=== PATIENT | male | born 1990 | race American Indian/Alaskan Native ===

== ENCOUNTER 2017-10-29 19:39 | Emergency (ER) | payer MEDICAID ==
[2017-10-29] MEDS ORDERED: Diphtheria,Pertussis(Acell),Tetanus Vaccine 0.5 ML SDV IM ONE (19:42)
[2017-10-29] MEDS ORDERED: Lidocaine 1% 30 ML SDV INJECT ONE (19:42)
[2017-10-29] MEDS ORDERED: Bacitracin Oint 1 GM U/D Packet TOP ONE (19:42)
[2017-10-29 19:46] VITALS: BP 123/85
--- NOTE | 2017-10-29 19:53 | EDM.PDOC ---
ED HPI GENERAL MEDICAL PROBLEM - General Chief Complaint: Laceration Stated Complaint: LACERATION ON KNEE [id number] Time Seen by Provider: 10/29/17 19:43 Source of Information: Reports: Patient, RN History Limitations: Reports: No Limitations - History of Present Illness INITIAL COMMENTS - FREE TEXT/NARRATIVE: cut left lower knee on something, maybe nail on porch. Didn't fee cut only blood trickling down leg. - Related Data Allergies Allergy/AdvReac Type Severity Reaction Status Date / Time No Known Allergies Allergy Verified 10/29/17 19:43 Home Meds: Home Meds Buprenorphine HCl/Naloxone HCl [Suboxone 12 mg-3 mg Sl Film] 8.4 mg PO BID 10/29 [History] Past Medical History - Past Health History Medical/Surgical History: Denies Medical/Surgical History Other HEENT History: patient wears corrective lenses Psychiatric History: Reports: Addiction Social & Family History - Family History Family Medical History: Noncontributory - Caffeine Use Caffeine Use: Reports: Energy Drinks ED ROS GENERAL - Review of Systems Review Of Systems: ROS reveals no pertinent complaints other than HPI. ED EXAM, SKIN/RASH Exam: See Below Exam Limited By: No Limitations General Appearance: Alert, No Apparent Distress Eye Exam: Bilateral Eye: EOMI Ears: Normal External Exam Throat/Mouth: Normal Voice Cardiovascular: No Edema GI/Abdominal: Normal Bowel Sounds Extremities: Normal Inspection Neurological: Alert, Oriented Psychiatric: Normal Affect Location, Skin: Lower Extremity, Left (3.5cm laceration below left knee medial edge.) Associated features: Tenderness. No: Swelling ED SKIN PROCEDURES - Laceration/Wound Repair Left Lower Medial Knee Lac/Wound length In cm: 3.5 Appearance: Superficial Distal NVT: Neuro & Vascular Intact, No Tendon Injury Anesthetic Type: Local Local Anesthesia - Lidocaine (Xylocaine): 1% Plain Skin Prep: Chlorhexidine (Hibiciens), Saline Exploration/Debridement/Repair: Wound Explored, No Foreign Material Found Closed with: Sutures Suture Size: 3-0 # of Sutures: 5 Sterile Dressing Applied: Nurse Tetanus Status Addressed: Yes Complications: No Course - Orders/Labs/Meds Orders: Active Orders 24 hr Category Date Time Status Vaccines to be Administered [RC] PER UNIT ROUTINE Care 10/29/17 19:42 Ordered Bacitracin [Bacitracin Oint 1 GM] Med 10/29/17 19:42 Once 1 dose TOP ONETIME ONE Diphth,Pertuss(Acell),Tet Vac [Adacel] Med 10/29/17 19:42 Once 0.5 ml IM .ONCE ONE Lidocaine 1% [Xylocaine-MPF 1%] Med 10/29/17 19:42 Once 30 ml INJECT ONETIME ONE Medication Orders Bacitracin (Bacitracin Oint 1 Gm) 1 dose TOP ONETIME ONE Stop: 10/29/17 19:43 Meds: Medications Generic Name Dose Route Start Last Admin Trade Name Vic PRN Reason Stop Dose Admin Bacitracin 1 dose 10/29/17 19:42 Bacitracin Oint 1 Gm TOP 10/29/17 19:43 ONETIME ONE Departure - Departure Time of Disposition: 20:01 Disposition: Home, Self-Care 01 Condition: Good Clinical Impression: Laceration - Discharge Information *PRESCRIPTION DRUG MONITORING PROGRAM REVIEWED*: Not Applicable Instructions: Stitches, [place], or Adhesive Wound Closure, [id number] Additional Instructions: keep clean and dry wash with soap and water sutures out 10-14 days in clinic follow up if redness drainage or swelling Tylenol or ibuprofen for discomfort - My Orders Last 24 Hours: My Active Orders 10/29/17 19:42 Vaccines to be Administered [RC] PER UNIT ROUTINE Bacitracin [Bacitracin Oint 1 GM] 1 dose TOP ONETIME ONE Diphth,Pertuss(Acell),Tet Vac [Adacel] 0.5 ml IM .ONCE ONE Lidocaine 1% [Xylocaine-MPF 1%] 30 ml INJECT ONETIME ONE - Assessment/Plan Last 24 Hours: My Active Orders 10/29/17 19:42 Vaccines to be Administered [RC] PER UNIT ROUTINE Bacitracin [Bacitracin Oint 1 GM] 1 dose TOP ONETIME ONE Diphth,Pertuss(Acell),Tet Vac [Adacel] 0.5 ml IM .ONCE ONE Lidocaine 1% [Xylocaine-MPF 1%] 30 ml INJECT ONETIME ONE
== END 2017-10-29 20:07 | disposition home or self-care (01) ==
LOC: DL.ED 19:39
DX: S81.012A Laceration without foreign body, left knee, initial encounter (principal); Z23 Encounter for immunization; X58.XXXA Exposure to other specified factors, initial encounter
CPT/HCPCS: 12002; 12013; 90471; 90715; 99282

== ENCOUNTER 2017-11-05 19:34 | Emergency (ER) | payer MEDICAID ==
[2017-11-05 20:45] VITALS: BP 131/76
[2017-11-05] MEDS ORDERED: Ondansetron 4 MG Tab.DIS PO ONE (23:56)
[2017-11-05] MEDS ORDERED: Azithromycin 250 MG Tab PO ONE (23:56)
[2017-11-05] MEDS ORDERED: cefTRIAXone 250 MG Vial IM ONE (23:56)
[2017-11-06] MEDS ORDERED: cefTRIAXone 250 MG, Lidocaine 1% 0.9 ML IM ONE ×2 (00:05)
--- NOTE | 2017-11-06 00:19 | EDM.PDOC ---
ED HPI GENERAL MEDICAL PROBLEM - General Chief Complaint: Genitourinary Problem Stated Complaint: UTI [id number] Time Seen by Provider: 11/05/17 23:50 Source of Information: Reports: Patient History Limitations: Reports: No Limitations - History of Present Illness INITIAL COMMENTS - FREE TEXT/NARRATIVE: she comes emergency department today with complaints of painful urination as well as a painful penis. Over the past 3-4 days he has developed a yellowish green discharge from the end of his penis. It is quite painful for him to urinate and he has to urinate more frequently. No fever no chills. No nausea no vomiting. No flank pain. No abdominal pain.He is currently in a monogamous relationship. Reports with his girlfriend for the last 3 months and has had unprotected sex the entire time. He is unsure if she has had any STI's in the past. He has had no other partners other than her in the last 3 months.e denies any rectal pain or painful defecation. Penis Pain Score (Numeric/FACES): 9 - Related Data Allergies Allergy/AdvReac Type Severity Reaction Status Date / Time No Known Allergies Allergy Verified 11/05/17 20:45 Home Meds: Home Meds Buprenorphine HCl/Naloxone HCl [Suboxone 12 mg-3 mg Sl Film] 8.4 mg PO BID 10/29 [History] Past Medical History - Past Health History Medical/Surgical History: Denies Medical/Surgical History Other HEENT History: patient wears corrective lenses Psychiatric History: Reports: Addiction - Past Surgical History HEENT Surgical History: Reports: Oral Surgery Social & Family History - Family History Family Medical History: Noncontributory - Tobacco Use Smoking Status *Q: Current Every Day Smoker Years of Tobacco use: 3 Packs/Tins Daily: 0.2 Second Hand Smoke Exposure: Yes - Caffeine Use Caffeine Use: Reports: Energy Drinks - Recreational Drug Use Recreational Drug Use: No ED ROS GENERAL - Review of Systems Review Of Systems: ROS reveals no pertinent complaints other than HPI. ED EXAM, RENAL/ - Physical Exam Exam: See Below Text/Narrative:: appears uncomfortable and actually gets up during the middle of the exam and also the bathroom. Exam Limited By: No Limitations General Appearance: Alert, WD/WN Respiratory/Chest: No Respiratory Distress, No Accessory Muscle Use Cardiovascular: Normal Peripheral Pulses (Male) Exam: Circumcised, Urethral Discharge (there is a rather moderate amount of thick foul-smelling green discharge from the end of his penis.). No: Scrotal Swelling, Scrotum Tenderness (L), Scrotum Tenderness (R), Suprapubic Fullness, Testicular Mass, Testicular Tenderness (L), Testicular Tenderness (R) Rectal (Males) Exam: Deferred Back Exam: Normal Inspection, Full Range of Motion Extremities: Normal Inspection, Normal Range of Motion, Normal Capillary Refill Neurological: Alert, Oriented Psychiatric: Normal Affect, Normal Mood Skin Exam: Warm, Dry, Intact, Normal Color Lymphatic: No Adenopathy Course - Vital Signs Last Recorded V/S: Last Vital Signs Temp 36.3 C 11/05/17 20:41 Pulse 80 11/05/17 20:41 Resp 18 11/05/17 20:41 BP 131/76 11/05/17 20:41 Pulse Ox 100 11/05/17 20:41 - Orders/Labs/Meds Orders: Active Orders 24 hr Category Date Time Status CHLAMYDIA AND GONORRHEA BY TMA Stat Lab 11/05/17 21:00 Received Labs: Laboratory Tests 11/05/17 Range/Units 21:00 Urine Color Yellow (YELLOW) Urine Appearance Cloudy (CLEAR) Urine pH 8.5 (5.0-9.0) Ur Specific [place] 1.020 (1.005-1.030) Urine Protein 30 H (NEGATIVE) Urine Glucose (UA) Negative (NEGATIVE) Urine Ketones Trace H (NEGATIVE) Urine Occult Blood Trace-intact H (NEGATIVE) Urine Nitrite Negative (NEGATIVE) Urine Bilirubin Negative (NEGATIVE) Urine Urobilinogen 0.2 (0.2-1.0) mg/dL Ur Leukocyte Esterase Moderate H (NEGATIVE) Urine RBC 0-5 /HPF Urine WBC >100 H (0-5/HPF) /HPF Ur Epithelial Cells Rare /HPF Urine Bacteria Rare (0-FEW/HPF) /HPF Urine Mucus Rare /LPF Meds: Medications Discontinued Medications Generic Name Dose Route Start Last Admin Trade Name Freq PRN Reason Stop Dose Admin Azithromycin 1,000 mg 11/05/17 23:56 Zithromax PO 11/05/17 23:57 ONETIME ONE Ceftriaxone Sodium 250 mg 11/05/17 23:56 Rocephin IM 11/05/17 23:57 ONETIME ONE Ceftriaxone Sodium 250 mg/ 0 mg 11/06/17 00:05 Lidocaine HCl 0.9 ml IM 11/06/17 00:06 ONETIME ONE Ondansetron HCl 4 mg 11/05/17 23:56 Zofran Odt PO 11/05/17 23:57 ONETIME ONE - Re-Assessments/Exams Free Text/Narrative Re-Assessment/Exam: 11/06/17 00:19 the patient's urine is clearly infectious. Cultures for GC chlamydia are pending. Although this is clearly a gonorrhea or chlamydia infection. I will treat him tonight as well as prescription for his girlfriend. Is important that he has girlfriend notify any other partners that they currently have an STI. They should insure eradication as well to prevent infertility. Departure - Departure Time of Disposition: 00:11 Disposition: Home, Self-Care 01 Clinical Impression: UTI, Urinary tract infectious disease, Sexually transmitted infection - Discharge Information Instructions: Urinary Tract Infection, Adult, [id number], Sexually Transmitted Disease, [id number] Additional Instructions: Tylenol and or Ibuprofen as needed for pain. Rx for partner supplied tonight as well. Notify all partners of infection and they must be treated as well. No sexual intercourse until resolution of symptoms. Return to the ED if new or worsening symptoms. Recheck with primary care provider in the next 4-6 days if not improving sooner if worse. - My Orders Last 24 Hours: My Active Orders 11/05/17 21:00 CHLAMYDIA AND GONORRHEA BY TMA Stat - Assessment/Plan Last 24 Hours: My Active Orders 11/05/17 21:00 CHLAMYDIA AND GONORRHEA BY TMA Stat Assessment:: UTI Treatment for STI Cultures pending. Partner prescription as well. Plan: Tylenol and or Ibuprofen as needed for pain. Rx for partner supplied tonight as well. Notify all partners of infection and they must be treated as well. No sexual intercourse until resolution of symptoms. Return to the ED if new or worsening symptoms. Recheck with primary care provider in the next 4-6 days if not improving sooner if worse.
== END 2017-11-06 01:01 | disposition home or self-care (01) ==
LOC: DL.ED 19:34
DX: N39.0 Urinary tract infection, site not specified (principal); A64 Unspecified sexually transmitted disease; F17.210 Nicotine dependence, cigarettes, uncomplicated
CPT/HCPCS: 36415; 81001; 86803; 87340; 87389; 87491; 87591; 96372; 99283; A9270; J0696

== ENCOUNTER 2018-03-27 01:23 | Observation (INO) | payer MEDICAID ==
[2018-03-27] MEDS ORDERED: MVI, Adult with Vitamin K 10 ML, Folic Acid 1 MG, Thiamine 100 MG in Lactated Ringers 1... IV ONE ×8 (01:37→04:43)
[2018-03-27] MEDS ORDERED: Sodium Chloride 0.9% 10 ML Syringe FLUSH PRN ×4 (01:37→16:49)
[2018-03-27] MEDS ORDERED: Ondansetron 4 MG/2 ML SDV IV ONE (01:51)
[2018-03-27] MEDS ORDERED: LORazepam 2 MG/ML Syringe IVPUSH ONE ×2 (01:51→02:29)
[2018-03-27 02:17] LABS: ANION GAP 17.4; CHLORIDE,CL 103 mmol/L (101-111); SODIUM,NA 141 mmol/L (135-145)
[2018-03-27] MEDS ORDERED: Metoclopramide 10 MG/2 ML SDV IVPUSH ONE (02:29)
--- NOTE | 2018-03-27 02:37 | EDM.PDOCBH ---
ED HPI GENERAL MEDICAL PROBLEM - General Chief Complaint: Drug or Alcohol Abuse Stated Complaint: ALCOHOL POISONING [id number] Time Seen by Provider: 03/27/18 01:45 Source of Information: Reports: Patient, RN, RN Notes Reviewed History Limitations: Reports: Intoxication - History of Present Illness INITIAL COMMENTS - FREE TEXT/NARRATIVE: Pt to ER with c/o alcohol abuse. Patient states he is concerned that he could have alcohol poisoning. He states he has been drinking since , everyday, all day. He states he drinks hard liquor. Last drink was about 0120 this morning. Patient states he tries to stop drinking, then gets nauseated. He then drinks again to make the nausea go away. He states he has seen "shadow people" at night. He denies any auditory hallucinations. Patient states he has nausea, vomiting, and feels very jittery and anxious. Denies any further health problems. Onset: Gradual - Related Data Allergies Allergy/AdvReac Type Severity Reaction Status Date / Time No Known Allergies Allergy Verified 03/27/18 01:27 Home Meds: Home Meds Buprenorphine HCl/Naloxone HCl [Suboxone 12 mg-3 mg Sl Film] 8.4 mg PO BID 10/29 [History] Past Medical History - Past Health History Medical/Surgical History: Denies Medical/Surgical History Other HEENT History: patient wears corrective lenses Cardiovascular History: Reports: None Respiratory History: Reports: None Gastrointestinal History: Reports: None Genitourinary History: Reports: None Musculoskeletal History: Reports: None Neurological History: Reports: None Psychiatric History: Reports: Addiction Endocrine/Metabolic History: Reports: None Hematologic History: Reports: None Immunologic History: Reports: None Oncologic (Cancer) History: Reports: None Dermatologic History: Reports: None - Past Surgical History HEENT Surgical History: Reports: Oral Surgery Social & Family History - Family History Family Medical History: Noncontributory - Tobacco Use Smoking Status *Q: Never Smoker - Caffeine Use Caffeine Use: Reports: Energy Drinks - Recreational Drug Use Recreational Drug Use: No ED ROS GENERAL - Review of Systems Review Of Systems: ROS reveals no pertinent complaints other than HPI. ED EXAM, BEHAVIORAL HEALTH - Physical Exam Exam: See Below Exam Limited By: Intoxication General Appearance: Alert, WD/WN, Moderate Distress Eye Exam: Bilateral Eye: EOMI, Normal Inspection Ears: Normal External Exam, Hearing Grossly Normal Nose: Normal Inspection Throat/Mouth: Normal Inspection, Normal Voice, No Airway Compromise Head: Atraumatic, Normocephalic Neck: Normal Inspection, Supple, Non-Tender, Full Range of Motion Respiratory/Chest: No Respiratory Distress, Lungs Clear, Normal Breath Sounds, No Accessory Muscle Use, Chest Non-Tender Cardiovascular: Normal Peripheral Pulses, Regular Rate, Rhythm, No Edema, No Gallop, No JVD, No Murmur, No Rub GI/Abdominal: Normal Bowel Sounds, Soft, No Organomegaly, No Distention, No Abnormal Bruit, No Mass, Tender (Male) Exam: Deferred Rectal (Males) Exam: Deferred Back Exam: Normal Inspection, Full Range of Motion, NT Extremities: Normal Inspection, Normal Range of Motion, Non-Tender, Normal Capillary Refill, No Pedal Edema Neurological: Alert, Normal Mood/Affect, CN II-XII Intact, Normal Cognition, Normal Gait, Normal Reflexes, No Motor/Sensory Deficits, Oriented x 3 Psychiatric: Normal Cognition, Oriented, Restless, Agitated Skin Exam: Warm, Dry, Intact, Normal color, No rash COURSE, BEHAVIORAL HEALTH COMP - Course Vital Signs: Last Vital Signs Temp 99.2 F 03/27/18 01:28 Pulse 84 03/27/18 01:28 Resp 18 03/27/18 01:28 BP 142/93 H 03/27/18 01:28 Pulse Ox 97 03/27/18 01:28 Orders, Labs, Meds: Active Orders 24 hr Category Date Time Status Peripheral IV Care [RC] . DIRECTED Care 03/27/18 01:37 Active Sodium Chloride 0.9% [Saline Flush] Med 03/27/18 01:37 Active 10 ml FLUSH ASDIRECTED PRN Peripheral IV Insertion Adult [OM.PC] Stat Oth 03/27/18 01:36 Ordered Medication Orders Sodium Chloride (Saline Flush) 10 ml FLUSH ASDIRECTED PRN PRN Reason: Keep Vein Open Last Admin: 03/27/18 01:51 Dose: 10 ml Laboratory Tests 03/27/18 03/27/18 03/27/18 Range/Units 01:45 01:45 02:00 WBC 7.3 (5.0-10.0) 10^3/uL RBC 4.74 (4.6-6.2) 10^6/uL Hgb 15.0 (14.0-18.0) g/dL Hct 43.7 (40.0-54.0) % MCV 92.2 (80-100) fL MCH 31.6 (27.0-34.0) pg MCHC 34.3 (33.0-35.0) g/dL Plt Count 201 D (150-450) 10^3/uL Neut % (Auto) 68.9 (42.2-75.2) % Lymph % (Auto) 19.9 L (20.5-50.1) % [place] % (Auto) 9.5 H (2-8) % Eos % (Auto) 0.6 L (1.0-3.0) % Baso % (Auto) 1.1 H (0.0-1.0) % Sodium 141 (135-145) mmol/L Potassium 3.4 L (3.6-5.0) mmol/L Chloride 103 (101-111) mmol/L Carbon Dioxide 24.0 (21.0-31.0) mmol/L Anion Gap 17.4 BUN 11 (7-18) mg/dL Creatinine 0.7 (0.6-1.3) mg/dL Est Cr Clr Drug Dosing 147.46 mL/min Estimated GFR (MDRD) > 60 BUN/Creatinine Ratio 15.71 Glucose 120 H (74-105) mg/dL Calcium 8.8 (8.4-10.2) mg/dl Total Bilirubin 0.6 (0.2-1.0) mg/dL AST 65 H (10-42) IU/L ALT 63 H (10-60) IU/L Alkaline Phosphatase 100 (42-121) IU/L Total Protein 8.0 (6.7-8.2) g/dl Albumin 4.4 (3.2-5.5) g/dl Globulin 3.6 Albumin/Globulin Ratio 1.22 Urine Color Yellow (YELLOW) Urine Appearance Clear (CLEAR) Urine pH 7.5 (5.0-9.0) Ur Specific [place] 1.020 (1.005-1.030) Urine Protein 100 H (NEGATIVE) Urine Glucose (UA) Negative (NEGATIVE) Urine Ketones Trace H (NEGATIVE) Urine Occult Blood Negative (NEGATIVE) Urine Nitrite Negative (NEGATIVE) Urine Bilirubin Negative (NEGATIVE) Urine Urobilinogen 1.0 (0.2-1.0) mg/dL Ur Leukocyte Esterase Negative (NEGATIVE) Urine RBC 0-5 /HPF Urine WBC 0-5 (0-5/HPF) /HPF Ur Epithelial Cells Few /HPF Amorphous Sediment Few (0/HPF) /HPF Urine Bacteria Moderate H (0-FEW/HPF) /HPF Urine Mucus Moderate H /LPF Urine Opiates Screen (NEGATIVE) Ur Oxycodone Screen (NEGATIVE) Urine Methadone Screen (NEGATIVE) Ur Barbiturates Screen (NEGATIVE) U Tricyclic Antidepress (NEGATIVE) Ur Phencyclidine Scrn (NEGATIVE) Ur Amphetamine Screen (NEGATIVE) U Methamphetamines Scrn (NEGATIVE) Urine MDMA Screen (NEGATIVE) U Benzodiazepines Scrn (NEGATIVE) Urine Cocaine Screen (NEGATIVE) U Marijuana (THC) Screen (NEGATIVE) Ethyl Alcohol 140 mg/dL 03/27/18 Range/Units 02:00 WBC (5.0-10.0) 10^3/uL RBC (4.6-6.2) 10^6/uL Hgb (14.0-18.0) g/dL Hct (40.0-54.0) % MCV (80-100) fL MCH (27.0-34.0) pg MCHC (33.0-35.0) g/dL Plt Count (150-450) 10^3/uL Neut % (Auto) (42.2-75.2) % Lymph % (Auto) (20.5-50.1) % [place] % (Auto) (2-8) % Eos % (Auto) (1.0-3.0) % Baso % (Auto) (0.0-1.0) % Sodium (135-145) mmol/L Potassium (3.6-5.0) mmol/L Chloride (101-111) mmol/L Carbon Dioxide (21.0-31.0) mmol/L Anion Gap BUN (7-18) mg/dL Creatinine (0.6-1.3) mg/dL Est Cr Clr Drug Dosing mL/min Estimated GFR (MDRD) BUN/Creatinine Ratio Glucose (74-105) mg/dL Calcium (8.4-10.2) mg/dl Total Bilirubin (0.2-1.0) mg/dL AST (10-42) IU/L ALT (10-60) IU/L Alkaline Phosphatase (42-121) IU/L Total Protein (6.7-8.2) g/dl Albumin (3.2-5.5) g/dl Globulin Albumin/Globulin Ratio Urine Color (YELLOW) Urine Appearance (CLEAR) Urine pH (5.0-9.0) Ur Specific [place] (1.005-1.030) Urine Protein (NEGATIVE) Urine Glucose (UA) (NEGATIVE) Urine Ketones (NEGATIVE) Urine Occult Blood (NEGATIVE) Urine Nitrite (NEGATIVE) Urine Bilirubin (NEGATIVE) Urine Urobilinogen (0.2-1.0) mg/dL Ur Leukocyte Esterase (NEGATIVE) Urine RBC /HPF Urine WBC (0-5/HPF) /HPF Ur Epithelial Cells /HPF Amorphous Sediment (0/HPF) /HPF Urine Bacteria (0-FEW/HPF) /HPF Urine Mucus /LPF Urine Opiates Screen Negative (NEGATIVE) Ur Oxycodone Screen Negative (NEGATIVE) Urine Methadone Screen Negative (NEGATIVE) Ur Barbiturates Screen Negative (NEGATIVE) U Tricyclic Antidepress Negative (NEGATIVE) Ur Phencyclidine Scrn Negative (NEGATIVE) Ur Amphetamine Screen Negative (NEGATIVE) U Methamphetamines Scrn Negative (NEGATIVE) Urine MDMA Screen Negative (NEGATIVE) U Benzodiazepines Scrn Negative (NEGATIVE) Urine Cocaine Screen Negative (NEGATIVE) U Marijuana (THC) Screen Negative (NEGATIVE) Ethyl Alcohol mg/dL Medications Generic Name Dose Route Start Last Admin Trade Name Freq PRN Reason Stop Dose Admin Sodium Chloride 10 ml 03/27/18 01:37 03/27/18 01:51 Saline Flush FLUSH 10 ml ASDIRECTED PRN Administration Keep Vein Open Discontinued Medications Generic Name Dose Route Start Last Admin Trade Name Freq PRN Reason Stop Dose Admin Multivitamins/Minerals 10 ml/ 1,011.2 mls @ 999 mls/hr 03/27/18 01:37 01:52 Folic Acid 1 mg/ Thiamine HCl IV 03/27/18 02:37 999 mls/hr 100 mg/ Lactated Ringer's ONETIME ONE Administration Lorazepam 1 mg 03/27/18 01:51 03/27/18 01:56 Ativan IVPUSH 03/27/18 01:52 1 mg ONETIME ONE Administration Lorazepam 1 mg 03/27/18 02:29 03/27/18 02:36 Ativan IVPUSH 03/27/18 02:30 1 mg ONETIME ONE Administration Metoclopramide HCl 10 mg 03/27/18 02:29 03/27/18 02:36 Reglan IVPUSH 03/27/18 02:30 10 mg ONETIME ONE Administration Ondansetron HCl 4 mg 03/27/18 01:51 03/27/18 01:56 Zofran IV 03/27/18 01:52 4 mg ONETIME ONE Administration Departure - Departure Time of Disposition: 02:36 Disposition: Refer to Observation Condition: Fair Clinical Impression: Alcohol abuse Alcohol withdrawal syndrome Qualifiers: Complication of substance-induced condition: with unspecified complication Qualified Code(s): F10.239 - Alcohol dependence with withdrawal, unspecified - Discharge Information *PRESCRIPTION DRUG MONITORING PROGRAM REVIEWED*: No *COPY OF PRESCRIPTION DRUG MONITORING REPORT IN PATIENT NIKITA: No - My Orders Last 24 Hours: My Active Orders 03/27/18 01:36 Peripheral IV Insertion Adult [OM.PC] Stat 03/27/18 01:37 Peripheral IV Care [RC] . DIRECTED Sodium Chloride 0.9% [Saline Flush] 10 ml FLUSH ASDIRECTED PRN - Assessment/Plan Last 24 Hours: My Active Orders 03/27/18 01:36 Peripheral IV Insertion Adult [OM.PC] Stat 03/27/18 01:37 Peripheral IV Care [RC] . DIRECTED Sodium Chloride 0.9% [Saline Flush] 10 ml FLUSH ASDIRECTED PRN
[2018-03-27] MEDS ORDERED: LORazepam 1 MG Tab PO PRN (04:41)
[2018-03-27] MEDS ORDERED: LORazepam 2 MG/ML Syringe IVPUSH PRN (04:42)
[2018-03-27] MEDS ORDERED: Potassium Chloride 10 MEQ Tab.ER PO ONE (04:44)
--- NOTE | 2018-03-27 04:54 | PCM.HP ---
H&P History of Present Illness - General Date of Service: 03/27/18 Admit Problem/Dx: Admission Diagnosis/Problem Admission Diagnosis/Problem Alcohol abuse Source of Information: Patient History Limitations: Reports: No Limitations - History of Present Illness Initial Comments - Free Text/Narative: 28 yo M with PMH of alcohol and opioid abuse (prev on suboxone) who p/w nausea and vomiting. Patient reports that he had a relapse and has been drinking alcohol continuously for two weeks. He admits to drinking more than a liter or vodka daily and multiple cans of beer. He knows that such alcohol intake is harmful and deleterious to his health and he is willing to quit. He was in an alcohol rehab program last year. He comes to the ED today after developing severe nausea and vomiting. Vomitus is fluid, non-bloody, non-bilious. He has no abdominal pain, no fever, no chest pain, no SOB, no seizures. Last drink was at 6 pm last night. SH: Non-smoker. In the ED, alcohol level was 140, UDS was negative - Related Data Allergies/Adverse Reactions: Allergies Allergy/AdvReac Type Severity Reaction Status Date / Time No Known Allergies Allergy Verified 03/27/18 03:01 Home Medications: Home Meds Buprenorphine HCl/Naloxone HCl [Suboxone 12 mg-3 mg Sl Film] 8.4 mg PO BID 10/29 [History] Past Medical History - Past Health History Medical/Surgical History: Denies Medical/Surgical History Other HEENT History: patient wears corrective lenses Cardiovascular History: Reports: None Respiratory History: Reports: None Gastrointestinal History: Reports: None Genitourinary History: Reports: None Musculoskeletal History: Reports: None Neurological History: Reports: None Psychiatric History: Reports: Addiction Endocrine/Metabolic History: Reports: None Hematologic History: Reports: None Immunologic History: Reports: None Oncologic (Cancer) History: Reports: None Dermatologic History: Reports: None - Past Surgical History HEENT Surgical History: Reports: Oral Surgery Cardiovascular Surgical History: Reports: None Respiratory Surgical History: Reports: None GI Surgical History: Reports: None Musculoskeletal Surgical History: Reports: None Social & Family History - Family History Family Medical History: Noncontributory - Tobacco Use Smoking Status *Q: Never Smoker Second Hand Smoke Exposure: No - Caffeine Use Caffeine Use: Reports: Energy Drinks - Alcohol Use Days Per Week of Alcohol Use: 7 Number of Drinks Per Day: 20 Total Drinks Per Week: 140 Date of Last Drink: 03/27/18 Time of Last Drink: 01:00 - Recreational Drug Use Recreational Drug Use: No H&P Review of Systems - Review of Systems: Review Of Systems: See Below General: Reports: No Symptoms HEENT: Reports: No Symptoms Pulmonary: Reports: No Symptoms Cardiovascular: Reports: No Symptoms Gastrointestinal: Reports: Nausea, Vomiting Genitourinary: Reports: No Symptoms Musculoskeletal: Reports: No Symptoms Exam - Exam Exam: See Below - Vital Signs Vital Signs: Last Vital Signs Temp 37.4 C 03/27/18 03:43 Pulse 65 03/27/18 03:43 Resp 16 03/27/18 03:43 BP 131/59 L 03/27/18 03:43 Pulse Ox 97 03/27/18 03:43 Weight: 62.823 kg - Exam General: Alert, Oriented HEENT: Conjunctiva Clear Neck: Supple Lungs: Clear to Auscultation, Normal Respiratory Effort Cardiovascular: Regular Rate, Regular Rhythm GI/Abdominal Exam: Normal Bowel Sounds - Patient Data Lab Results Last 24 hrs: Laboratory Results - last 24 hr 03/27/18 03/27/18 03/27/18 Range/Units 01:45 01:45 02:00 WBC 7.3 (5.0-10.0) 10^3/uL RBC 4.74 (4.6-6.2) 10^6/uL Hgb 15.0 (14.0-18.0) g/dL Hct 43.7 (40.0-54.0) % MCV 92.2 (80-100) fL MCH 31.6 (27.0-34.0) pg MCHC 34.3 (33.0-35.0) g/dL Plt Count 201 D (150-450) 10^3/uL Neut % (Auto) 68.9 (42.2-75.2) % Lymph % (Auto) 19.9 L (20.5-50.1) % [place] % (Auto) 9.5 H (2-8) % Eos % (Auto) 0.6 L (1.0-3.0) % Baso % (Auto) 1.1 H (0.0-1.0) % Sodium 141 (135-145) mmol/L Potassium 3.4 L (3.6-5.0) mmol/L Chloride 103 (101-111) mmol/L Carbon Dioxide 24.0 (21.0-31.0) mmol/L Anion Gap 17.4 BUN 11 (7-18) mg/dL Creatinine 0.7 (0.6-1.3) mg/dL Est Cr Clr Drug Dosing 147.46 mL/min Estimated GFR (MDRD) > 60 BUN/Creatinine Ratio 15.71 Glucose 120 H (74-105) mg/dL Calcium 8.8 (8.4-10.2) mg/dl Total Bilirubin 0.6 (0.2-1.0) mg/dL AST 65 H (10-42) IU/L ALT 63 H (10-60) IU/L Alkaline Phosphatase 100 (42-121) IU/L Total Protein 8.0 (6.7-8.2) g/dl Albumin 4.4 (3.2-5.5) g/dl Globulin 3.6 Albumin/Globulin Ratio 1.22 Urine Color Yellow (YELLOW) Urine Appearance Clear (CLEAR) Urine pH 7.5 (5.0-9.0) Ur Specific [place] 1.020 (1.005-1.030) Urine Protein 100 H (NEGATIVE) Urine Glucose (UA) Negative (NEGATIVE) Urine Ketones Trace H (NEGATIVE) Urine Occult Blood Negative (NEGATIVE) Urine Nitrite Negative (NEGATIVE) Urine Bilirubin Negative (NEGATIVE) Urine Urobilinogen 1.0 (0.2-1.0) mg/dL Ur Leukocyte Esterase Negative (NEGATIVE) Urine RBC 0-5 /HPF Urine WBC 0-5 (0-5/HPF) /HPF Ur Epithelial Cells Few /HPF Amorphous Sediment Few (0/HPF) /HPF Urine Bacteria Moderate H (0-FEW/HPF) /HPF Urine Mucus Moderate H /LPF Urine Opiates Screen (NEGATIVE) Ur Oxycodone Screen (NEGATIVE) Urine Methadone Screen (NEGATIVE) Ur Barbiturates Screen (NEGATIVE) U Tricyclic Antidepress (NEGATIVE) Ur Phencyclidine Scrn (NEGATIVE) Ur Amphetamine Screen (NEGATIVE) U Methamphetamines Scrn (NEGATIVE) Urine MDMA Screen (NEGATIVE) U Benzodiazepines Scrn (NEGATIVE) Urine Cocaine Screen (NEGATIVE) U Marijuana (THC) Screen (NEGATIVE) Ethyl Alcohol 140 mg/dL 03/27/18 Range/Units 02:00 WBC (5.0-10.0) 10^3/uL RBC (4.6-6.2) 10^6/uL Hgb (14.0-18.0) g/dL Hct (40.0-54.0) % MCV (80-100) fL MCH (27.0-34.0) pg MCHC (33.0-35.0) g/dL Plt Count (150-450) 10^3/uL Neut % (Auto) (42.2-75.2) % Lymph % (Auto) (20.5-50.1) % [place] % (Auto) (2-8) % Eos % (Auto) (1.0-3.0) % Baso % (Auto) (0.0-1.0) % Sodium (135-145) mmol/L Potassium (3.6-5.0) mmol/L Chloride (101-111) mmol/L Carbon Dioxide (21.0-31.0) mmol/L Anion Gap BUN (7-18) mg/dL Creatinine (0.6-1.3) mg/dL Est Cr Clr Drug Dosing mL/min Estimated GFR (MDRD) BUN/Creatinine Ratio Glucose (74-105) mg/dL Calcium (8.4-10.2) mg/dl Total Bilirubin (0.2-1.0) mg/dL AST (10-42) IU/L ALT (10-60) IU/L Alkaline Phosphatase (42-121) IU/L Total Protein (6.7-8.2) g/dl Albumin (3.2-5.5) g/dl Globulin Albumin/Globulin Ratio Urine Color (YELLOW) Urine Appearance (CLEAR) Urine pH (5.0-9.0) Ur Specific [place] (1.005-1.030) Urine Protein (NEGATIVE) Urine Glucose (UA) (NEGATIVE) Urine Ketones (NEGATIVE) Urine Occult Blood (NEGATIVE) Urine Nitrite (NEGATIVE) Urine Bilirubin (NEGATIVE) Urine Urobilinogen (0.2-1.0) mg/dL Ur Leukocyte Esterase (NEGATIVE) Urine RBC /HPF Urine WBC (0-5/HPF) /HPF Ur Epithelial Cells /HPF Amorphous Sediment (0/HPF) /HPF Urine Bacteria (0-FEW/HPF) /HPF Urine Mucus /LPF Urine Opiates Screen Negative (NEGATIVE) Ur Oxycodone Screen Negative (NEGATIVE) Urine Methadone Screen Negative (NEGATIVE) Ur Barbiturates Screen Negative (NEGATIVE) U Tricyclic Antidepress Negative (NEGATIVE) Ur Phencyclidine Scrn Negative (NEGATIVE) Ur Amphetamine Screen Negative (NEGATIVE) U Methamphetamines Scrn Negative (NEGATIVE) Urine MDMA Screen Negative (NEGATIVE) U Benzodiazepines Scrn Negative (NEGATIVE) Urine Cocaine Screen Negative (NEGATIVE) U Marijuana (THC) Screen Negative (NEGATIVE) Ethyl Alcohol mg/dL Result Diagrams: 03/27/18 01:45 03/27/18 01:45 Problem List Initiated/Reviewed/Updated: Yes Orders Last 24hrs: Active Orders 24 hr Category Date Time Status Patient Status [ADT] Routine ADT 03/27/18 04:39 Ordered Ambulate [RC] ASDIRECTED Care 03/27/18 04:39 Ordered Oxygen Therapy [RC] PRN Care 03/27/18 04:39 Ordered Peripheral IV Care [RC] . DIRECTED Care 03/27/18 04:39 Ordered Peripheral IV Care [RC] . DIRECTED Care 03/27/18 04:39 Ordered VTE/DVT Education [RC] PER UNIT ROUTINE Care 03/27/18 04:39 Ordered Vital Signs [RC] Q4H Care 03/27/18 04:39 Ordered Regular Diet [DIET] Diet 03/27/18 Breakfast Ordered BASIC METABOLIC PANEL,BMP [CHEM] Routine Lab 03/27/18 08:00 Ordered MAGNESIUM [CHEM] Routine Lab 03/27/18 08:00 Ordered Enoxaparin [Lovenox] Med 03/27/18 09:00 Ordered 40 mg SUBCUT DAILY LORazepam [Ativan] Med 03/27/18 04:42 Ordered See Protocol IVPUSH ASDIRECTED PRN LORazepam [Ativan] Med 03/27/18 04:41 Ordered See Protocol PO Q4H PRN MVI, Adult with Vitamin K [Infuvite Adult] 10 ml Med 03/27/18 04:43 Ordered Folic Acid 1 mg Thiamine [Vitamin B-1] 100 mg Lactated Ringers [Ringers, Lactated] 1,000 ml IV ONETIME Sodium Chloride 0.9% [Saline Flush] Med 03/27/18 01:37 Active 10 ml FLUSH ASDIRECTED PRN Sodium Chloride 0.9% [Saline Flush] Med 03/27/18 04:39 Ordered 10 ml FLUSH ASDIRECTED PRN Sodium Chloride 0.9% [Saline Flush] Med 03/27/18 04:39 Ordered 10 ml FLUSH ASDIRECTED PRN Peripheral IV Insertion Adult [OM.PC] Routine Oth 03/27/18 04:39 Ordered Peripheral IV Insertion Adult [OM.PC] Stat Oth 03/27/18 01:36 Ordered Saline Lock Insert [OM.PC] Routine Oth 03/27/18 04:39 Ordered Resuscitation Status Routine Resus Stat 03/27/18 04:39 Ordered Medication Orders Enoxaparin Sodium (Lovenox) 40 mg SUBCUT DAILY K[facility] Multivitamins/Minerals 10 ml/Folic Acid 1 mg/ Thiamine HCl 100 mg/ Lactated Ringer's 1,011.2 mls @ 100 mls/hr IV ONETIME ONE Stop: 03/27/18 14:49 Lorazepam (Ativan) 1 - 3 mg PO Q4H PRN; Protocol PRN Reason: Withdrawal Symptoms Lorazepam (Ativan) 0 mg IVPUSH ASDIRECTED PRN; Protocol PRN Reason: Withdrawal Symptoms Sodium Chloride (Saline Flush) 10 ml FLUSH ASDIRECTED PRN PRN Reason: Keep Vein Open Last Admin: 03/27/18 01:51 Dose: 10 ml Sodium Chloride (Saline Flush) 10 ml FLUSH ASDIRECTED PRN PRN Reason: Keep Vein Open Sodium Chloride (Saline Flush) 10 ml FLUSH ASDIRECTED PRN PRN Reason: Keep Vein Open Assessment/Plan Comment:: #Alcohol abuse #Possible Alcohol withdrawal -IVF with MVI (banana bag) -Thiamine supplementation -monitor for alcohol withdrawal on the [facility] protocol -referral to alcohol rehab and social sciences instructor #Hypokalemia -mild, K 3.4 -replenish potassium orally -recheck in the morning -check Magnesium level #Hx of opioid abuse -patient says he is off suboxone for now -UDS negative #DVT ppx SC lovenox.
[2018-03-27 06:48] LABS: ANION GAP 17.9; CHLORIDE,CL 100 mmol/L (101-111); SODIUM,NA 138 mmol/L (135-145)
[2018-03-27] MEDS: Enoxaparin 40 MG/0.4 ML Syringe SUBCUT SCH (08:58)
--- NOTE | 2018-03-27 12:39 | PCM.PN ---
- General Info Date of Service: 03/27/18 Functional Status: Reports: Pain Controlled - Review of Systems General: Reports: No Symptoms HEENT: Reports: No Symptoms Pulmonary: Reports: No Symptoms Cardiovascular: Reports: No Symptoms Gastrointestinal: Reports: Diarrhea Genitourinary: Reports: No Symptoms Musculoskeletal: Reports: No Symptoms Skin: Reports: No Symptoms Neurological: Reports: Tremors Psychiatric: Reports: No Symptoms - Patient Data Vitals - Most Recent: Last Vital Signs Temp 97.4 F 03/27/18 12:20 Pulse 84 03/27/18 12:20 Resp 20 03/27/18 12:20 BP 116/61 03/27/18 12:20 Pulse Ox 100 03/27/18 12:20 Weight - Most Recent: 138 lb 8 oz I&O - Last 24 Hours: Intake & Output 03/26/18 03/27/18 03/27/18 22:59 06:59 14:59 Intake Total 510 360 Balance 510 360 Lab Results Last 24 Hours: Laboratory Results - last 24 hr 03/27/18 03/27/18 03/27/18 Range/Units 01:45 01:45 02:00 WBC 7.3 (5.0-10.0) 10^3/uL RBC 4.74 (4.6-6.2) 10^6/uL Hgb 15.0 (14.0-18.0) g/dL Hct 43.7 (40.0-54.0) % MCV 92.2 (80-100) fL MCH 31.6 (27.0-34.0) pg MCHC 34.3 (33.0-35.0) g/dL Plt Count 201 D (150-450) 10^3/uL Neut % (Auto) 68.9 (42.2-75.2) % Lymph % (Auto) 19.9 L (20.5-50.1) % [place] % (Auto) 9.5 H (2-8) % Eos % (Auto) 0.6 L (1.0-3.0) % Baso % (Auto) 1.1 H (0.0-1.0) % Sodium 141 (135-145) mmol/L Potassium 3.4 L (3.6-5.0) mmol/L Chloride 103 (101-111) mmol/L Carbon Dioxide 24.0 (21.0-31.0) mmol/L Anion Gap 17.4 BUN 11 (7-18) mg/dL Creatinine 0.7 (0.6-1.3) mg/dL Est Cr Clr Drug Dosing 147.46 mL/min Estimated GFR (MDRD) > 60 BUN/Creatinine Ratio 15.71 Glucose 120 H (74-105) mg/dL Calcium 8.8 (8.4-10.2) mg/dl Phosphorus (2.5-4.6) mg/dL Magnesium (1.8-2.5) mg/dL Total Bilirubin 0.6 (0.2-1.0) mg/dL AST 65 H (10-42) IU/L ALT 63 H (10-60) IU/L Alkaline Phosphatase 100 (42-121) IU/L Total Protein 8.0 (6.7-8.2) g/dl Albumin 4.4 (3.2-5.5) g/dl Globulin 3.6 Albumin/Globulin Ratio 1.22 Urine Color Yellow (YELLOW) Urine Appearance Clear (CLEAR) Urine pH 7.5 (5.0-9.0) Ur Specific [place] 1.020 (1.005-1.030) Urine Protein 100 H (NEGATIVE) Urine Glucose (UA) Negative (NEGATIVE) Urine Ketones Trace H (NEGATIVE) Urine Occult Blood Negative (NEGATIVE) Urine Nitrite Negative (NEGATIVE) Urine Bilirubin Negative (NEGATIVE) Urine Urobilinogen 1.0 (0.2-1.0) mg/dL Ur Leukocyte Esterase Negative (NEGATIVE) Urine RBC 0-5 /HPF Urine WBC 0-5 (0-5/HPF) /HPF Ur Epithelial Cells Few /HPF Amorphous Sediment Few (0/HPF) /HPF Urine Bacteria Moderate H (0-FEW/HPF) /HPF Urine Mucus Moderate H /LPF Urine Opiates Screen (NEGATIVE) Ur Oxycodone Screen (NEGATIVE) Urine Methadone Screen (NEGATIVE) Ur Barbiturates Screen (NEGATIVE) U Tricyclic Antidepress (NEGATIVE) Ur Phencyclidine Scrn (NEGATIVE) Ur Amphetamine Screen (NEGATIVE) U Methamphetamines Scrn (NEGATIVE) Urine MDMA Screen (NEGATIVE) U Benzodiazepines Scrn (NEGATIVE) Urine Cocaine Screen (NEGATIVE) U Marijuana (THC) Screen (NEGATIVE) Ethyl Alcohol 140 mg/dL 03/27/18 03/27/18 03/27/18 Range/Units 02:00 06:10 06:10 WBC (5.0-10.0) 10^3/uL RBC (4.6-6.2) 10^6/uL Hgb (14.0-18.0) g/dL Hct (40.0-54.0) % MCV (80-100) fL MCH (27.0-34.0) pg MCHC (33.0-35.0) g/dL Plt Count (150-450) 10^3/uL Neut % (Auto) (42.2-75.2) % Lymph % (Auto) (20.5-50.1) % [place] % (Auto) (2-8) % Eos % (Auto) (1.0-3.0) % Baso % (Auto) (0.0-1.0) % Sodium 138 (135-145) mmol/L Potassium 3.9 (3.6-5.0) mmol/L Chloride 100 L (101-111) mmol/L Carbon Dioxide 24.0 (21.0-31.0) mmol/L Anion Gap 17.9 BUN 9 (7-18) mg/dL Creatinine 0.7 (0.6-1.3) mg/dL Est Cr Clr Drug Dosing 140.85 mL/min Estimated GFR (MDRD) > 60 BUN/Creatinine Ratio Glucose 117 H (74-105) mg/dL Calcium 8.5 (8.4-10.2) mg/dl Phosphorus 2.6 (2.5-4.6) mg/dL Magnesium 2.2 (1.8-2.5) mg/dL Total Bilirubin (0.2-1.0) mg/dL AST (10-42) IU/L ALT (10-60) IU/L Alkaline Phosphatase (42-121) IU/L Total Protein (6.7-8.2) g/dl Albumin (3.2-5.5) g/dl Globulin Albumin/Globulin Ratio Urine Color (YELLOW) Urine Appearance (CLEAR) Urine pH (5.0-9.0) Ur Specific [place] (1.005-1.030) Urine Protein (NEGATIVE) Urine Glucose (UA) (NEGATIVE) Urine Ketones (NEGATIVE) Urine Occult Blood (NEGATIVE) Urine Nitrite (NEGATIVE) Urine Bilirubin (NEGATIVE) Urine Urobilinogen (0.2-1.0) mg/dL Ur Leukocyte Esterase (NEGATIVE) Urine RBC /HPF Urine WBC (0-5/HPF) /HPF Ur Epithelial Cells /HPF Amorphous Sediment (0/HPF) /HPF Urine Bacteria (0-FEW/HPF) /HPF Urine Mucus /LPF Urine Opiates Screen Negative (NEGATIVE) Ur Oxycodone Screen Negative (NEGATIVE) Urine Methadone Screen Negative (NEGATIVE) Ur Barbiturates Screen Negative (NEGATIVE) U Tricyclic Antidepress Negative (NEGATIVE) Ur Phencyclidine Scrn Negative (NEGATIVE) Ur Amphetamine Screen Negative (NEGATIVE) U Methamphetamines Scrn Negative (NEGATIVE) Urine MDMA Screen Negative (NEGATIVE) U Benzodiazepines Scrn Negative (NEGATIVE) Urine Cocaine Screen Negative (NEGATIVE) U Marijuana (THC) Screen Negative (NEGATIVE) Ethyl Alcohol mg/dL Med Orders - Current: Current Medications Enoxaparin Sodium (Lovenox) 40 mg SUBCUT DAILY [facility] Last Admin: 03/27/18 08:58 Dose: 40 mg Multivitamins/Minerals 10 ml/Folic Acid 1 mg/ Thiamine HCl 100 mg/ Lactated Ringer's 1,011.2 mls @ 100 mls/hr IV ONETIME ONE Stop: 03/27/18 14:49 Last Admin: 03/27/18 05:06 Dose: 100 mls/hr Lorazepam (Ativan) 1 - 3 mg PO Q4H PRN; Protocol PRN Reason: Withdrawal Symptoms Last Admin: 03/27/18 05:12 Dose: 2 mg Lorazepam (Ativan) 1 - 3 mg IVPUSH ASDIRECTED PRN; Protocol PRN Reason: Withdrawal Symptoms Sodium Chloride (Saline Flush) 10 ml FLUSH ASDIRECTED PRN PRN Reason: Keep Vein Open Sodium Phosphate (Neutra-Phos) 250 mg PO BID [facility] Stop: 03/28/18 21:01 Discontinued Medications Multivitamins/Minerals 10 ml/Folic Acid 1 mg/ Thiamine HCl 100 mg/ Lactated Ringer's 1,011.2 mls @ 999 mls/hr IV ONETIME ONE Stop: 03/27/18 02:37 Last Admin: 03/27/18 01:52 Dose: 999 mls/hr Lorazepam (Ativan) 1 mg IVPUSH ONETIME ONE Stop: 03/27/18 01:52 Last Admin: 03/27/18 01:56 Dose: 1 mg Lorazepam (Ativan) 1 mg IVPUSH ONETIME ONE Stop: 03/27/18 02:30 Last Admin: 03/27/18 02:36 Dose: 1 mg Metoclopramide HCl (Reglan) 10 mg IVPUSH ONETIME ONE Stop: 03/27/18 02:30 Last Admin: 03/27/18 02:36 Dose: 10 mg Ondansetron HCl (Zofran) 4 mg IV ONETIME ONE Stop: 03/27/18 01:52 Last Admin: 03/27/18 01:56 Dose: 4 mg Potassium Chloride (Klor-Con 10) 40 meq PO ONETIME ONE Stop: 03/27/18 04:45 Last Admin: 03/27/18 05:08 Dose: 40 meq Sodium Chloride (Saline Flush) 10 ml FLUSH ASDIRECTED PRN PRN Reason: Keep Vein Open Last Admin: 03/27/18 01:51 Dose: 10 ml Sodium Chloride (Saline Flush) 10 ml FLUSH ASDIRECTED PRN PRN Reason: Keep Vein Open - Exam General: Alert, Oriented HEENT: Pupils Equal, Pupils Reactive, EOMI, Mucous Membr. Moist/[place] Neck: Supple Lungs: Clear to Auscultation, Normal Respiratory Effort Cardiovascular: No Murmurs, Tachycardia GI/Abdominal Exam: Normal Bowel Sounds, Soft, Non-Tender, No Organomegaly, No Distention, No Abnormal Bruit, No Mass, Pelvis Stable (Male) Exam: Deferred Back Exam: Other (Not indicated. ) Extremities: Normal Inspection, Normal Range of Motion, Non-Tender, No Pedal Edema, Normal Capillary Refill Peripheral Pulses: 2+: Radial (L), Radial (R), Dorsalis Pedis (L), Dorsalis Pedis (R) Skin: Warm, Dry, Intact Neurological: No New Focal Deficit Psy/Mental Status: Alert, Normal Affect, Normal Mood - Problem List & Annotations (1) Alcohol abuse SNOMED Code(s): 93657724 Code(s): F10.10 - ALCOHOL ABUSE, UNCOMPLICATED Status: Acute Current Visit: No (2) Alcohol withdrawal syndrome SNOMED Code(s): 009019185 Code(s): F10.239 - ALCOHOL DEPENDENCE WITH WITHDRAWAL, UNSPECIFIED Status: Acute Current Visit: No Qualifiers: Complication of substance-induced condition: with unspecified complication Qualified Code(s): F10.239 - Alcohol dependence with withdrawal, unspecified (3) Acute hypokalemia SNOMED Code(s): 98084859 Code(s): E87.6 - HYPOKALEMIA Status: Acute Current Visit: Yes (4) Hypophosphatemia SNOMED Code(s): 5244837 Code(s): E83.39 - OTHER DISORDERS OF PHOSPHORUS METABOLISM Status: Acute Current Visit: Yes - Problem List Review Problem List Initiated/Reviewed/Updated: Yes - My Orders Last 24 Hours: My Active Orders 03/27/18 11:45 Phosphorus #1 [Neutra-Phos] 250 mg PO BID - Plan Plan:: #Alcohol abuse #Possible Alcohol withdrawal -IVF with MVI (banana bag) -Thiamine supplementation -monitor for alcohol withdrawal on the [facility] protocol -referral to alcohol rehab and social sciences professor #Hypokalemia. Resolved. -mild, K 3.4; 3.9 this morning. -replenish potassium orally -recheck in the morning -Magnesium level normal. #Hypophosphatemia: Phos low normal. - K phos neutral ordered. - Monitor and replete electrolytes. #Hx of opioid abuse -patient says he is off suboxone for now -UDS negative #DVT ppx SC lovenox.
[2018-03-27] MEDS: Phosphorus #1 250 MG Tab PO SCH ×2 (13:03→20:51)
[2018-03-27] MEDS ORDERED: Acetaminophen 325 MG Tab PO PRN (20:25)
[2018-03-27] MEDS ORDERED: Promethazine 25 MG/ML SDV IM PRN (22:46)
[2018-03-28] MEDS ORDERED: Ondansetron 4 MG/2 ML SDV IV PRN (03:59)
[2018-03-28] MEDS ORDERED: Ondansetron 4 MG/2 ML SDV IV SCH (06:00)
[2018-03-28] MEDS: Phosphorus #1 250 MG Tab PO SCH ×2 (08:43→20:53)
[2018-03-28] MEDS: Enoxaparin 40 MG/0.4 ML Syringe SUBCUT SCH (08:44)
[2018-03-28 09:06] LABS: ANION GAP 13.1; CHLORIDE,CL 102 mmol/L (101-111); SODIUM,NA 137 mmol/L (135-145)
[2018-03-28] MEDS ORDERED: Potassium Chloride 10 MEQ Tab.ER PO ONE (09:30)
--- NOTE | 2018-03-28 09:58 | PCM.PN ---
- General Info Date of Service: 03/28/18 Admission Dx/Problem (Free Text): Admission Diagnosis/Problem Admission Diagnosis/Problem Alcohol abuse - Review of Systems General: Reports: Night Sweats HEENT: Reports: No Symptoms Pulmonary: Reports: No Symptoms Cardiovascular: Reports: No Symptoms Gastrointestinal: Reports: Vomiting Genitourinary: Reports: No Symptoms Musculoskeletal: Reports: No Symptoms Skin: Reports: No Symptoms Neurological: Reports: No Symptoms Psychiatric: Reports: No Symptoms - Patient Data Vitals - Most Recent: Last Vital Signs Temp 98.3 F 03/28/18 07:58 Pulse 61 03/28/18 07:58 Resp 18 03/28/18 07:58 BP 134/84 03/28/18 07:58 Pulse Ox 98 03/28/18 07:58 Weight - Most Recent: 138 lb 8 oz I&O - Last 24 Hours: Intake & Output 03/27/18 03/28/18 03/28/18 22:59 06:59 14:59 Intake Total 1119 240 Balance 1119 240 Lab Results Last 24 Hours: Laboratory Results - last 24 hr 03/27/18 03/28/18 Range/Units 06:10 08:38 Sodium 137 (135-145) mmol/L Potassium 3.1 L (3.6-5.0) mmol/L Chloride 102 (101-111) mmol/L Carbon Dioxide 25.0 (21.0-31.0) mmol/L Anion Gap 13.1 BUN 8 (7-18) mg/dL Creatinine 0.8 (0.6-1.3) mg/dL Est Cr Clr Drug Dosing 123.25 mL/min Estimated GFR (MDRD) > 60 BUN/Creatinine Ratio 10.00 Glucose 128 H (74-105) mg/dL Calcium 8.8 (8.4-10.2) mg/dl Phosphorus 2.6 3.6 (2.5-4.6) mg/dL Magnesium 2.0 (1.8-2.5) mg/dL Total Bilirubin 1.4 H (0.2-1.0) mg/dL Direct Bilirubin 0.2 (0.0-0.2) mg/dL Indirect Bilirubin 1.2 AST 71 H (10-42) IU/L ALT 62 H (10-60) IU/L Alkaline Phosphatase 98 (42-121) IU/L Total Protein 7.1 (6.7-8.2) g/dl Albumin 3.9 (3.2-5.5) g/dl Globulin 3.2 Albumin/Globulin Ratio 1.22 Med Orders - Current: Current Medications Acetaminophen (Tylenol) 650 mg PO Q6H PRN PRN Reason: Pain Last Admin: 03/27/18 20:51 Dose: 650 mg Enoxaparin Sodium (Lovenox) 40 mg SUBCUT DAILY [facility] Last Admin: 03/28/18 08:44 Dose: Not Given Potassium Chloride 10 meq/ (Premix) 100 mls @ 100 mls/hr IV Q1H [facility] Stop: 03/28/18 13:59 Lorazepam (Ativan) 1 - 3 mg PO Q4H PRN; Protocol PRN Reason: Withdrawal Symptoms Last Admin: 03/27/18 05:12 Dose: 2 mg Lorazepam (Ativan) 1 - 3 mg IVPUSH ASDIRECTED PRN; Protocol PRN Reason: Withdrawal Symptoms Ondansetron HCl (Zofran) 4 mg IV Q8H PRN PRN Reason: Nausea/Vomiting Promethazine HCl (Phenergan) 25 mg IM Q6H PRN PRN Reason: Nausea Last Admin: 03/27/18 23:15 Dose: 25 mg Sodium Chloride (Saline Flush) 10 ml FLUSH ASDIRECTED PRN PRN Reason: Keep Vein Open Sodium Chloride (Saline Flush) 10 ml FLUSH ASDIRECTED PRN PRN Reason: Keep Vein Open Sodium Phosphate (Neutra-Phos) 250 mg PO BID [facility] Stop: 03/28/18 21:01 Last Admin: 03/28/18 08:43 Dose: 250 mg Discontinued Medications Multivitamins/Minerals 10 ml/Folic Acid 1 mg/ Thiamine HCl 100 mg/ Lactated Ringer's 1,011.2 mls @ 999 mls/hr IV ONETIME ONE Stop: 03/27/18 02:37 Last Admin: 03/27/18 01:52 Dose: 999 mls/hr Multivitamins/Minerals 10 ml/Folic Acid 1 mg/ Thiamine HCl 100 mg/ Lactated Ringer's 1,011.2 mls @ 100 mls/hr IV ONETIME ONE Stop: 03/27/18 14:49 Last Admin: 03/27/18 05:06 Dose: 100 mls/hr Lorazepam (Ativan) 1 mg IVPUSH ONETIME ONE Stop: 03/27/18 01:52 Last Admin: 03/27/18 01:56 Dose: 1 mg Lorazepam (Ativan) 1 mg IVPUSH ONETIME ONE Stop: 03/27/18 02:30 Last Admin: 03/27/18 02:36 Dose: 1 mg Metoclopramide HCl (Reglan) 10 mg IVPUSH ONETIME ONE Stop: 03/27/18 02:30 Last Admin: 03/27/18 02:36 Dose: 10 mg Ondansetron HCl (Zofran) 4 mg IV ONETIME ONE Stop: 03/27/18 01:52 Last Admin: 03/27/18 01:56 Dose: 4 mg Potassium Chloride (Klor-Con 10) 40 meq PO ONETIME ONE Stop: 03/27/18 04:45 Last Admin: 03/27/18 05:08 Dose: 40 meq Potassium Chloride (Klor-Con 10) 40 meq PO ONETIME ONE Stop: 03/28/18 09:31 Sodium Chloride (Saline Flush) 10 ml FLUSH ASDIRECTED PRN PRN Reason: Keep Vein Open Last Admin: 03/27/18 01:51 Dose: 10 ml Sodium Chloride (Saline Flush) 10 ml FLUSH ASDIRECTED PRN PRN Reason: Keep Vein Open - Exam Cardiovascular: Regular Rate, Regular Rhythm, No Murmurs GI/Abdominal Exam: Normal Bowel Sounds, Soft, Non-Tender, No Organomegaly, No Distention (Male) Exam: Deferred Extremities: Normal Inspection, Non-Tender, No Pedal Edema Peripheral Pulses: 2+: Radial (L), Radial (R), Dorsalis Pedis (L), Dorsalis Pedis (R) Skin: Warm, Dry, Intact Neurological: No New Focal Deficit Psy/Mental Status: Alert, Normal Affect, Normal Mood - Problem List & Annotations (1) Alcohol abuse SNOMED Code(s): 66729197 Code(s): F10.10 - ALCOHOL ABUSE, UNCOMPLICATED Status: Acute Current Visit: No (2) Alcohol withdrawal syndrome SNOMED Code(s): 995649810 Code(s): F10.239 - ALCOHOL DEPENDENCE WITH WITHDRAWAL, UNSPECIFIED Status: Acute Current Visit: No Qualifiers: Complication of substance-induced condition: with unspecified complication Qualified Code(s): F10.239 - Alcohol dependence with withdrawal, unspecified (3) Acute hypokalemia SNOMED Code(s): 14233389 Code(s): E87.6 - HYPOKALEMIA Status: Acute Current Visit: Yes (4) Hypophosphatemia SNOMED Code(s): 6578216 Code(s): E83.39 - OTHER DISORDERS OF PHOSPHORUS METABOLISM Status: Acute Current Visit: Yes (5) Elevated liver enzymes SNOMED Code(s): 067954757 Code(s): R74.8 - ABNORMAL LEVELS OF OTHER SERUM ENZYMES Status: Acute Current Visit: Yes - Problem List Review Problem List Initiated/Reviewed/Updated: Yes - My Orders Last 24 Hours: My Active Orders 03/27/18 11:45 Phosphorus #1 [Neutra-Phos] 250 mg PO BID 03/27/18 16:49 Sodium Chloride 0.9% [Saline Flush] 10 ml FLUSH ASDIRECTED PRN Convert IV to Saline Lock [OM.PC] Routine 03/27/18 20:25 Acetaminophen [Tylenol] 650 mg PO Q6H PRN 03/27/18 22:46 Promethazine [Phenergan] 25 mg IM Q6H PRN 03/28/18 09:30 Potassium Chloride [KCl 10 MEQ in Water 100 ML] 10 meq Premix Bag 1 bag IV Q1H - Plan Plan:: #Alcohol abuse #Possible Alcohol withdrawal -IVF with MVI (banana bag) -Thiamine supplementation -monitor for alcohol withdrawal on the [facility] protocol -referral to alcohol rehab and medical social worker #Elevated liver enzymes: mild elevation of AST, ALT, and T bili. - Counseled patient on the importance to stop using alcohol. - Educated patient on need to minimized acetaminophen use. #Hypokalemia. Resolved. -mild, K 3.1 this morning. -replenish potassium orally and with IV -recheck in the morning -Magnesium level normal. #Hypophosphatemia: Phos was low normal. - K phos neutral ordered. - Monitor and replete electrolytes. #Hx of opioid abuse -patient says he is off suboxone for now -UDS negative #DVT ppx SC lovenox.
[2018-03-28] MEDS: Potassium Chloride 10 MEQ in Premix Bag 1 BAG IV SCH ×4 (11:05→15:04)
[2018-03-29 08:22] VITALS: BP 144/67
[2018-03-29] MEDS: Enoxaparin 40 MG/0.4 ML Syringe SUBCUT SCH (08:39)
[2018-03-29 09:06] LABS: ANION GAP 15.9; CHLORIDE,CL 101 mmol/L (101-111); SODIUM,NA 136 mmol/L (135-145)
--- NOTE | 2018-03-29 10:06 | PCM.DCSUM1 ---
Discharge Summary - Hospital Course Free Text/Narrative:: 28 yo M with PMH of alcohol and opioid abuse (prev on suboxone) who p/w nausea and vomiting. Admitted to drinking more than a liter of vodka daily and several cans of beer. BAL was 140. UDS was negative. He was placed on CIWA protocol with Ativan. Received ativan for high CIWAs during the first day of hospitalization. Developed nausea and vomiting night of hospital day 1. Resolved with IV Zofran. Patient's K and Phos were low during parts of the hospitalization. They were replaced with IV and PO KCl; and PO Neurtra-phos. He expressed interest in rehab. He was assessed by the rehab services. His LFTs were mildly elevated. He was counseled on the importance to quit drinking alcohol. He was also instructed on the need to avoid excessive acetaminophen use. He was discharged home to follow up with his PCP and Coretta Guallpa for rehab services. HPI Initial Comments: 28 yo M with PMH of alcohol and opioid abuse (prev on suboxone) who p/w nausea and vomiting. Patient reports that he had a relapse and has been drinking alcohol continuously for two weeks. He admits to drinking more than a liter or vodka daily and multiple cans of beer. He knows that such alcohol intake is harmful and deleterious to his health and he is willing to quit. He was in an alcohol rehab program last year. He comes to the ED today after developing severe nausea and vomiting. Vomitus is fluid, non-bloody, non-bilious. He has no abdominal pain, no fever, no chest pain, no SOB, no seizures. Last drink was at 6 pm last night. SH: Non-smoker. In the ED, alcohol level was 140, UDS was negative Diagnosis: Stroke: No - Discharge Data Discharge Date: 03/29/18 Discharge Disposition: Home, Self-Care 01 Condition: Fair - Discharge Diagnosis/Problem(s) (1) Alcohol abuse SNOMED Code(s): 81656630 ICD Code: F10.10 - ALCOHOL ABUSE, UNCOMPLICATED Status: Acute Current Visit: Yes (2) Alcohol withdrawal syndrome SNOMED Code(s): 905728601 ICD Code: F10.239 - ALCOHOL DEPENDENCE WITH WITHDRAWAL, UNSPECIFIED Status : Acute Current Visit: Yes Qualifiers: Complication of substance-induced condition: with unspecified complication Qualified Code(s): F10.239 - Alcohol dependence with withdrawal, unspecified (3) Acute hypokalemia SNOMED Code(s): 96248370 ICD Code: E87.6 - HYPOKALEMIA Status: Acute Current Visit: Yes (4) Hypophosphatemia SNOMED Code(s): 4487789 ICD Code: E83.39 - OTHER DISORDERS OF PHOSPHORUS METABOLISM Status: Acute Current Visit: Yes (5) Elevated liver enzymes SNOMED Code(s): 832121840 ICD Code: R74.8 - ABNORMAL LEVELS OF OTHER SERUM ENZYMES Status: Acute Current Visit: Yes - Patient Instructions Diet: Regular Diet as Tolerated Activity: As Tolerated - Discharge Plan *PRESCRIPTION DRUG MONITORING PROGRAM REVIEWED*: No *COPY OF PRESCRIPTION DRUG MONITORING REPORT IN PATIENT NIKITA: No Home Medications: Home Meds Buprenorphine HCl/Naloxone HCl [Suboxone 12 mg-3 mg Sl Film] 8.4 mg PO BID 10/29 [History] Oxygen Therapy Mode: Room Air Patient Handouts: What You Need to Know About Alcohol Abuse and Dependence, Adult, Hypokalemia, Alcohol Withdrawal, [id number] Referrals: PCP,Unobtain [Primary Care Provider] - - Discharge Summary/Plan Comment DC Time >30 min.: Yes - General Info Date of Service: 03/29/18 Admission Dx/Problem (Free Text: Admission Diagnosis/Problem Admission Diagnosis/Problem Alcohol abuse - Review of Systems General: Reports: No Symptoms HEENT: Reports: No Symptoms Pulmonary: Reports: No Symptoms Cardiovascular: Reports: No Symptoms Gastrointestinal: Reports: No Symptoms Genitourinary: Reports: No Symptoms Musculoskeletal: Reports: No Symptoms Skin: Reports: No Symptoms Neurological: Reports: No Symptoms Psychiatric: Reports: No Symptoms - Patient Data Vitals - Most Recent: Last Vital Signs Temp 98.2 F 03/29/18 08:00 Pulse 80 03/29/18 08:00 Resp 20 03/29/18 08:00 BP 144/67 H 03/29/18 08:00 Pulse Ox 98 03/29/18 08:00 Weight - Most Recent: 138 lb 8 oz I&O - Last 24 hours: Intake & Output 03/28/18 03/29/18 03/29/18 22:59 06:59 14:59 Intake Total 1050 240 Balance 1050 240 Lab Results - Last 24 hrs: Laboratory Results - last 24 hr 03/29/18 Range/Units 08:40 Sodium 136 (135-145) mmol/L Potassium 3.9 (3.6-5.0) mmol/L Chloride 101 (101-111) mmol/L Carbon Dioxide 23.0 (21.0-31.0) mmol/L Anion Gap 15.9 BUN 14 (7-18) mg/dL Creatinine 0.8 (0.6-1.3) mg/dL Est Cr Clr Drug Dosing 123.25 mL/min Estimated GFR (MDRD) > 60 BUN/Creatinine Ratio 17.50 Glucose 102 (74-105) mg/dL Calcium 9.2 (8.4-10.2) mg/dl Total Bilirubin 1.1 H (0.2-1.0) mg/dL AST 71 H (10-42) IU/L ALT 75 H (10-60) IU/L Alkaline Phosphatase 98 (42-121) IU/L Total Protein 7.9 (6.7-8.2) g/dl Albumin 4.4 (3.2-5.5) g/dl Globulin 3.5 Albumin/Globulin Ratio 1.26 Med Orders - Current: Current Medications Acetaminophen (Tylenol) 650 mg PO Q6H PRN PRN Reason: Pain Last Admin: 03/27/18 20:51 Dose: 650 mg Enoxaparin Sodium (Lovenox) 40 mg SUBCUT DAILY [facility] Last Admin: 03/29/18 08:39 Dose: Not Given Lorazepam (Ativan) 1 - 3 mg PO Q4H PRN; Protocol PRN Reason: Withdrawal Symptoms Last Admin: 03/27/18 05:12 Dose: 2 mg Lorazepam (Ativan) 1 - 3 mg IVPUSH ASDIRECTED PRN; Protocol PRN Reason: Withdrawal Symptoms Ondansetron HCl (Zofran) 4 mg IV Q8H PRN PRN Reason: Nausea/Vomiting Promethazine HCl (Phenergan) 25 mg IM Q6H PRN PRN Reason: Nausea Last Admin: 03/27/18 23:15 Dose: 25 mg Sodium Chloride (Saline Flush) 10 ml FLUSH ASDIRECTED PRN PRN Reason: Keep Vein Open Sodium Chloride (Saline Flush) 10 ml FLUSH ASDIRECTED PRN PRN Reason: Keep Vein Open Discontinued Medications Multivitamins/Minerals 10 ml/Folic Acid 1 mg/ Thiamine HCl 100 mg/ Lactated Ringer's 1,011.2 mls @ 999 mls/hr IV ONETIME ONE Stop: 03/27/18 02:37 Last Admin: 03/27/18 01:52 Dose: 999 mls/hr Multivitamins/Minerals 10 ml/Folic Acid 1 mg/ Thiamine HCl 100 mg/ Lactated Ringer's 1,011.2 mls @ 100 mls/hr IV ONETIME ONE Stop: 03/27/18 14:49 Last Admin: 03/27/18 05:06 Dose: 100 mls/hr Potassium Chloride 10 meq/ (Premix) 100 mls @ 100 mls/hr IV Q1H [facility] Stop: 03/28/18 13:59 Last Infusion: 03/28/18 17:10 Dose: Infused Lorazepam (Ativan) 1 mg IVPUSH ONETIME ONE Stop: 03/27/18 01:52 Last Admin: 03/27/18 01:56 Dose: 1 mg Lorazepam (Ativan) 1 mg IVPUSH ONETIME ONE Stop: 03/27/18 02:30 Last Admin: 03/27/18 02:36 Dose: 1 mg Metoclopramide HCl (Reglan) 10 mg IVPUSH ONETIME ONE Stop: 03/27/18 02:30 Last Admin: 03/27/18 02:36 Dose: 10 mg Ondansetron HCl (Zofran) 4 mg IV ONETIME ONE Stop: 03/27/18 01:52 Last Admin: 03/27/18 01:56 Dose: 4 mg Potassium Chloride (Klor-Con 10) 40 meq PO ONETIME ONE Stop: 03/27/18 04:45 Last Admin: 03/27/18 05:08 Dose: 40 meq Potassium Chloride (Klor-Con 10) 40 meq PO ONETIME ONE Stop: 03/28/18 09:31 Last Admin: 03/28/18 11:04 Dose: 40 meq Sodium Chloride (Saline Flush) 10 ml FLUSH ASDIRECTED PRN PRN Reason: Keep Vein Open Last Admin: 03/27/18 01:51 Dose: 10 ml Sodium Chloride (Saline Flush) 10 ml FLUSH ASDIRECTED PRN PRN Reason: Keep Vein Open Sodium Phosphate (Neutra-Phos) 250 mg PO BID [facility] Stop: 03/28/18 21:01 Last Admin: 03/28/18 20:53 Dose: 250 mg - Exam General: Reports: Alert, Oriented HEENT: Reports: Pupils Equal, Pupils Reactive, EOMI, Mucous Membr. Moist/[place] Neck: Reports: Supple, Trachea Midline Lungs: Reports: Clear to Auscultation, Normal Respiratory Effort Cardiovascular: Reports: Regular Rate, Regular Rhythm GI/Abdominal Exam: Normal Bowel Sounds, Soft, Non-Tender, No Distention Extremities: Normal Inspection, Non-Tender, No Pedal Edema Skin: Reports: Warm, Dry, Intact Neurological: Reports: No New Focal Deficit Psy/Mental Status: Reports: Alert, Normal Affect, Normal Mood
== END 2018-03-29 10:45 | disposition home or self-care (01) ==
LOC: DL.ED 01:23 → DL.MS 02:49 → UNDOADMOB 02:49 → DL.MS 03:13
PROVIDERS: ADMIT Hospitalist; ATTEND Hospitalist
DX: F10.239 Alcohol dependence with withdrawal, unspecified (principal); E87.6 Hypokalemia; E83.39 Other disorders of phosphorus metabolism; R74.8 Abnormal levels of other serum enzymes; Y90.6 Blood alcohol level of 120-199 mg/100 ml
CPT/HCPCS: 36415; 80048; 80053; 80069; 80076; 80305; 81001; 83735; 84100; 85025; 96365; 96366; 96367; 96372; 96375; 96376; 99285; A9270; G0378; G0480; J1650; J2060; J2405; J2550; J2765; J3411; J3480; J7120; J3490

== ENCOUNTER 2019-12-10 02:13 | Emergency (ER) | payer MEDICAID, OTHER ==
[2019-12-10 02:28] VITALS: BP 153/94; PULSE 126
[2019-12-10] MEDS ORDERED: LORazepam 2 MG/ML SDV IVPUSH ONE (02:36)
[2019-12-10 02:46] LABS: ANION GAP 18.1 mEq/L (7-13); CHLORIDE,CL 99 mmol/L (98-107); SODIUM,NA 137 mmol/L (136-145)
--- NOTE | 2019-12-10 03:15 | EDM.PDOC ---
ED HPI GENERAL MEDICAL PROBLEM - General Chief Complaint: Drug or Alcohol Abuse Stated Complaint: TOOK METH, HEART BEATING FAST Time Seen by Provider: 12/10/19 02:25 Source of Information: Reports: Patient History Limitations: Reports: No Limitations - History of Present Illness INITIAL COMMENTS - FREE TEXT/NARRATIVE: ED with c/o of feeling like heart racing for past 2 hours. Amits almost drinking daily for past 3 weeks had been sober 7 months prior. Around 4pm today snorted some meth. Unable to sleep so a few more shots but didn't help - Related Data Allergies Allergy/AdvReac Type Severity Reaction Status Date / Time No Known Allergies Allergy Verified 12/10/19 02:22 Past Medical History - Past Health History Medical/Surgical History: Denies Medical/Surgical History HEENT History: Reports: Impaired Vision Other HEENT History: patient wears corrective lenses Cardiovascular History: Reports: None Respiratory History: Reports: None Gastrointestinal History: Reports: None Genitourinary History: Reports: None Musculoskeletal History: Reports: None Neurological History: Reports: None Psychiatric History: Reports: Addiction Endocrine/Metabolic History: Reports: None Hematologic History: Reports: None Immunologic History: Reports: None Oncologic (Cancer) History: Reports: None Dermatologic History: Reports: None - Past Surgical History HEENT Surgical History: Reports: Oral Surgery Cardiovascular Surgical History: Reports: None Respiratory Surgical History: Reports: None GI Surgical History: Reports: None Musculoskeletal Surgical History: Reports: None Social & Family History - Family History Family Medical History: Noncontributory - Tobacco Use Smoking Status *Q: Never Smoker Second Hand Smoke Exposure: Yes - Caffeine Use Caffeine Use: Reports: Energy Drinks - Recreational Drug Use Recreational Drug Use: Yes Recreational Drug Type: Reports: Methamphetamine ED ROS GENERAL - Review of Systems Review Of Systems: Comprehensive ROS is negative, except as noted in HPI. - Physical Exam Exam: See Below Exam Limited By: No Limitations General Appearance: Alert, Anxious Eye Exam: Bilateral Eye: PERRL Ears: Normal External Exam Nose: Normal Inspection Throat/Mouth: Normal Inspection Head Exam: Atraumatic, Normocephalic Neck: Normal Inspection Respiratory/Chest: No Respiratory Distress, Lungs Clear, Normal Breath Sounds Cardiovascular: Normal Peripheral Pulses, Regular Rate, Rhythm, No Edema, Tachycardia GI/Abdominal: Normal Bowel Sounds Neuro Exam (Abbreviated): Alert, Oriented, Normal Cognition Back Exam: Full Range of Motion Skin Exam: Warm, Dry, Intact, Normal Color Course - Vital Signs Last Recorded V/S: Last Vital Signs Temp 98.9 F 12/10/19 02:22 Pulse 126 H 12/10/19 02:22 Resp 21 H 12/10/19 02:22 BP 153/94 H 12/10/19 02:22 Pulse Ox 96 12/10/19 02:22 - Orders/Labs/Meds Orders: Active Orders 24 hr Category Date Time Status EKG 12 Lead [EKG Documentation Completion] [RC] ROUTINE Care 12/10/19 02:23 Active Labs: Laboratory Tests 12/10/19 12/10/19 12/10/19 Range/Units 02:21 02:21 03:15 WBC 12.5 H (5.0-10.0) 10^3/uL RBC 5.01 (4.6-6.2) 10^6/uL Hgb 16.1 (14.0-18.0) g/dL Hct 46.7 (40.0-54.0) % MCV 93.2 (80-100) fL MCH 32.1 (27.0-34.0) pg MCHC 34.5 (33.0-35.0) g/dL Plt Count 343 D (150-450) 10^3/uL Neut % (Auto) 84.7 H (42.2-75.2) % Lymph % (Auto) 7.5 L (20.5-50.1) % [place] % (Auto) 7.3 (2-8) % Eos % (Auto) 0.2 L (1.0-3.0) % Baso % (Auto) 0.3 (0.0-1.0) % Sodium 137 (136-145) mmol/L Potassium 3.1 L (3.5-5.1) mmol/L Chloride 99 (98-107) mmol/L Carbon Dioxide 23 (21-32) mmol/L Anion Gap 18.1 H (7-13) mEq/L BUN 12 (7-18) mg/dL Creatinine 0.97 (0.70-1.30) mg/dL Est Cr Clr Drug Dosing 106.00 mL/min Estimated GFR (MDRD) > 60 BUN/Creatinine Ratio 12.4 (No establ ref range) Glucose 137 H (74-99) mg/dL Calcium 8.9 (8.5-10.1) mg/dL Total Bilirubin 0.7 (0.2-1.0) mg/dL AST 118 H (15-37) U/L ALT 221 H (16-63) U/L Alkaline Phosphatase 154 H (46-116) U/L Total Protein 9.1 H (6.4-8.2) g/dL Albumin 4.5 (3.4-5.0) g/dL Globulin 4.6 Albumin/Globulin Ratio 1.0 Urine Opiates Screen Negative (NEGATIVE) Ur Oxycodone Screen Negative (NEGATIVE) Urine Methadone Screen Negative (NEGATIVE) Ur Barbiturates Screen Negative (NEGATIVE) U Tricyclic Antidepress Negative (NEGATIVE) Ur Phencyclidine Scrn Negative (NEGATIVE) Ur Amphetamine Screen Positive H (NEGATIVE) U Methamphetamines Scrn Positive H (NEGATIVE) Urine MDMA Screen Positive H (NEGATIVE) U Benzodiazepines Scrn Negative (NEGATIVE) Urine Cocaine Screen Negative (NEGATIVE) U Marijuana (THC) Screen Negative (NEGATIVE) Ethyl Alcohol 53 (0) mg/dL Meds: Medications Discontinued Medications Generic Name Dose Route Start Last Admin Trade Name Freq PRN Reason Stop Dose Admin Lorazepam 1 mg 12/10/19 02:36 12/10/19 02:48 Ativan IVPUSH 12/10/19 02:37 1 mg ONETIME ONE Administration Departure - Departure Time of Disposition: 03:00 Disposition: Home, Self-Care 01 Condition: Good Clinical Impression: Methamphetamine abuse - Discharge Information *PRESCRIPTION DRUG MONITORING PROGRAM REVIEWED*: No *COPY OF PRESCRIPTION DRUG MONITORING REPORT IN PATIENT NIKITA: No Instructions: Alcohol Use Disorder, Stimulant Use Disorder-Methamphetamines Forms: ED Department Discharge Additional Instructions: stop using meth limit alcohol use rest increase fluid intake today consider following up with addiction services Sepsis Event Note (ED) - Evaluation Sepsis Screening Result: No Definite Risk - Focused Exam Vital Signs: Vital Signs Temp Pulse Resp BP Pulse Ox 12/10/19 02:22 98.9 F 126 H 21 H 153/94 H 96 - My Orders Last 24 Hours: My Active Orders 12/10/19 02:23 EKG 12 Lead [EKG Documentation Completion] [RC] ROUTINE - Assessment/Plan Last 24 Hours: My Active Orders 12/10/19 02:23 EKG 12 Lead [EKG Documentation Completion] [RC] ROUTINE
== END 2019-12-10 03:40 | disposition home or self-care (01) ==
LOC: DL.ED 02:13
DX: F15.10 Other stimulant abuse, uncomplicated (principal); R00.0 Tachycardia, unspecified; Z77.22 Contact with and (suspected) exposure to environmental tobacco smoke (acute) (chronic)
CPT/HCPCS: 36415; 80053; 80305; 80307; 85025; 93005; 96374; 99285; J2060; 99283

== ENCOUNTER 2019-12-27 07:41 | Emergency (ER) | payer MEDICAID, OTHER ==
--- NOTE | 2019-12-27 07:53 | EDM.PDOC ---
ED HPI GENERAL MEDICAL PROBLEM - General Chief Complaint: Chest Pain Stated Complaint: heart pain Time Seen by Provider: 12/27/19 07:52 Source of Information: Reports: Patient, RN, RN Notes Reviewed History Limitations: Reports: No Limitations - History of Present Illness INITIAL COMMENTS - FREE TEXT/NARRATIVE: Patient presents to to ED via personal vehicle with complaints of racing heart and chest pain. The patient states he ingested meth last night, 12/26/19, at approximately 2300. He does attest to drinking heavily, as well, about 2L of liquor in the past 24 hours. He denies taking any additional recreational substances. He is states he is currently experiencing chest pressure, palpitations, and tremors. The patient relates this chest pressure does not radiate, but is localized to the midchest. He denies shortness of breath, cough, fever, chills, or changes to his bowel/bladder patterns. - Related Data Allergies Allergy/AdvReac Type Severity Reaction Status Date / Time No Known Allergies Allergy Verified 12/10/19 02:22 Past Medical History - Past Health History Medical/Surgical History: Denies Medical/Surgical History HEENT History: Reports: Impaired Vision Other HEENT History: patient wears corrective lenses Cardiovascular History: Reports: None Respiratory History: Reports: None Gastrointestinal History: Reports: None Genitourinary History: Reports: None Musculoskeletal History: Reports: None Neurological History: Reports: None Psychiatric History: Reports: Addiction Endocrine/Metabolic History: Reports: None Hematologic History: Reports: None Immunologic History: Reports: None Oncologic (Cancer) History: Reports: None Dermatologic History: Reports: None - Past Surgical History HEENT Surgical History: Reports: Oral Surgery Cardiovascular Surgical History: Reports: None Respiratory Surgical History: Reports: None GI Surgical History: Reports: None Musculoskeletal Surgical History: Reports: None Social & Family History - Family History Family Medical History: Noncontributory - Caffeine Use Caffeine Use: Reports: Energy Drinks ED ROS GENERAL - Review of Systems Review Of Systems: Comprehensive ROS is negative, except as noted in HPI. ED EXAM, GENERAL - Physical Exam Exam: See Below Exam Limited By: No Limitations General Appearance: Alert, WD/WN, Anxious, Mild Distress Eye Exam: Bilateral Eye: EOMI, Normal Inspection, PERRL Throat/Mouth: Normal Voice, No Airway Compromise Head: Atraumatic, Normocephalic Neck: Normal Inspection, Supple, Non-Tender, Full Range of Motion Respiratory/Chest: Lungs Clear, Normal Breath Sounds Cardiovascular: No Edema, No Gallop, No Murmur, No Rub, Tachycardia Peripheral Pulses: 2+: Radial (L), Radial (R), Dorsalis Pedis (L), Dorsalis Pedis (R) GI/Abdominal: Normal Bowel Sounds, Soft, Non-Tender, No Distention, No Mass (Male) Exam: Deferred Rectal (Males) Exam: Deferred Back Exam: Normal Inspection, Full Range of Motion. No: CVA Tenderness (L), CVA Tenderness (R) Extremities: Normal Inspection, Normal Range of Motion, Non-Tender, No Pedal Edema, Normal Capillary Refill Neurological: Alert, Oriented Skin Exam: Warm, Diaphoretic, Other (Generalized flushing) EKG INTERPRETATION EKG Date: 12/27/19 Time: 07:53 Rhythm: Other Rate (Beats/Min): 147 (Sinus Tach) [place]: Normal P-Wave: Present QRS: Normal ST-T: Other QT: Normal Comparison: No Change EKG Interpretation Comments: ST with nonspecific ST-segment changes. Course - Vital Signs Last Recorded V/S: Last Vital Signs Temp 98.1 F 12/27/19 07:55 Pulse 152 H 12/27/19 07:55 Resp 30 H 12/27/19 07:55 BP 137/77 12/27/19 09:55 Pulse Ox 98 12/27/19 07:55 - Orders/Labs/Meds Orders: Active Orders 24 hr Category Date Time Status EKG Documentation Completion [RC] STAT Care 12/27/19 07:50 Active Labs: Laboratory Tests 12/27/19 12/27/19 12/27/19 Range/Units 07:50 07:50 07:50 WBC 17.8 H (5.0-10.0) 10^3/uL RBC 4.95 (4.6-6.2) 10^6/uL Hgb 16.3 (14.0-18.0) g/dL Hct 46.3 (40.0-54.0) % MCV 93.5 (80-100) fL MCH 32.9 (27.0-34.0) pg MCHC 35.2 H (33.0-35.0) g/dL Plt Count 295 (150-450) 10^3/uL Neut % (Auto) 85.7 H (42.2-75.2) % Lymph % (Auto) 6.1 L (20.5-50.1) % [place] % (Auto) 7.7 (2-8) % Eos % (Auto) 0.0 L (1.0-3.0) % Baso % (Auto) 0.5 (0.0-1.0) % Add Manual Diff Yes Neutrophils % (Manual) 87 H (42-75) % Band Neutrophils % 3 % Lymphocytes % (Manual) 6 L (20-50) % Monocytes % (Manual) 4 (2-8) % D-Dimer, Quantitative 739 H (0-400) ng/mL Sodium 143 (136-145) mmol/L Potassium 3.9 (3.5-5.1) mmol/L Chloride 101 (98-107) mmol/L Carbon Dioxide 21 (21-32) mmol/L Anion Gap 24.9 H (7-13) mEq/L BUN 11 (7-18) mg/dL Creatinine 1.44 H (0.70-1.30) mg/dL Est Cr Clr Drug Dosing 73.89 mL/min Estimated GFR (MDRD) 58 BUN/Creatinine Ratio 7.6 (No establ ref range) Glucose 173 H (74-99) mg/dL Calcium 9.4 (8.5-10.1) mg/dL Total Bilirubin 0.3 (0.2-1.0) mg/dL AST 187 H (15-37) U/L ALT 454 H (16-63) U/L Alkaline Phosphatase 150 H (46-116) U/L Troponin I < 0.017 (0.000-0.056) ng/mL Total Protein 9.2 H (6.4-8.2) g/dL Albumin 4.5 (3.4-5.0) g/dL Globulin 4.7 Albumin/Globulin Ratio 1.0 Urine Color (YELLOW) Urine Appearance (CLEAR) Urine pH (5.0-9.0) Ur Specific [place] (1.005-1.030) Urine Protein (NEGATIVE) Urine Glucose (UA) (NEGATIVE) Urine Ketones (NEGATIVE) Urine Occult Blood (NEGATIVE) Urine Nitrite (NEGATIVE) Urine Bilirubin (NEGATIVE) Urine Urobilinogen (0.2-1.0) mg/dL Ur Leukocyte Esterase (NEGATIVE) U Hyaline Cast (Auto) Urine RBC /HPF Urine WBC (0-5/HPF) /HPF Ur Epithelial Cells (NOT SEEN) /HPF Amorphous Sediment (NOT SEEN) /HPF Urine Bacteria (0-FEW/HPF) /HPF Urine Mucus (NOT SEEN) /LPF Urine Opiates Screen (NEGATIVE) Ur Oxycodone Screen (NEGATIVE) Urine Methadone Screen (NEGATIVE) Ur Barbiturates Screen (NEGATIVE) U Tricyclic Antidepress (NEGATIVE) Ur Phencyclidine Scrn (NEGATIVE) Ur Amphetamine Screen (NEGATIVE) U Methamphetamines Scrn (NEGATIVE) Urine MDMA Screen (NEGATIVE) U Benzodiazepines Scrn (NEGATIVE) Urine Cocaine Screen (NEGATIVE) U Marijuana (THC) Screen (NEGATIVE) 12/27/19 12/27/19 Range/Units 11:55 11:55 WBC (5.0-10.0) 10^3/uL RBC (4.6-6.2) 10^6/uL Hgb (14.0-18.0) g/dL Hct (40.0-54.0) % MCV (80-100) fL MCH (27.0-34.0) pg MCHC (33.0-35.0) g/dL Plt Count (150-450) 10^3/uL Neut % (Auto) (42.2-75.2) % Lymph % (Auto) (20.5-50.1) % [place] % (Auto) (2-8) % Eos % (Auto) (1.0-3.0) % Baso % (Auto) (0.0-1.0) % Add Manual Diff Neutrophils % (Manual) (42-75) % Band Neutrophils % % Lymphocytes % (Manual) (20-50) % Monocytes % (Manual) (2-8) % D-Dimer, Quantitative (0-400) ng/mL Sodium (136-145) mmol/L Potassium (3.5-5.1) mmol/L Chloride (98-107) mmol/L Carbon Dioxide (21-32) mmol/L Anion Gap (7-13) mEq/L BUN (7-18) mg/dL Creatinine (0.70-1.30) mg/dL Est Cr Clr Drug Dosing mL/min Estimated GFR (MDRD) BUN/Creatinine Ratio (No establ ref range) Glucose (74-99) mg/dL Calcium (8.5-10.1) mg/dL Total Bilirubin (0.2-1.0) mg/dL AST (15-37) U/L ALT (16-63) U/L Alkaline Phosphatase (46-116) U/L Troponin I (0.000-0.056) ng/mL Total Protein (6.4-8.2) g/dL Albumin (3.4-5.0) g/dL Globulin Albumin/Globulin Ratio Urine Color Yellow (YELLOW) Urine Appearance Slightly cloudy (CLEAR) Urine pH 6.5 (5.0-9.0) Ur Specific [place] >= 1.030 (1.005-1.030) Urine Protein 30 H (NEGATIVE) Urine Glucose (UA) Negative (NEGATIVE) Urine Ketones Negative (NEGATIVE) Urine Occult Blood Negative (NEGATIVE) Urine Nitrite Negative (NEGATIVE) Urine Bilirubin Negative (NEGATIVE) Urine Urobilinogen 0.2 (0.2-1.0) mg/dL Ur Leukocyte Esterase Negative (NEGATIVE) U Hyaline Cast (Auto) Few Urine RBC 0-5 /HPF Urine WBC 0-5 (0-5/HPF) /HPF Ur Epithelial Cells Few (NOT SEEN) /HPF Amorphous Sediment Few (NOT SEEN) /HPF Urine Bacteria Rare (0-FEW/HPF) /HPF Urine Mucus Moderate H (NOT SEEN) /LPF Urine Opiates Screen Negative (NEGATIVE) Ur Oxycodone Screen Negative (NEGATIVE) Urine Methadone Screen Negative (NEGATIVE) Ur Barbiturates Screen Negative (NEGATIVE) U Tricyclic Antidepress Negative (NEGATIVE) Ur Phencyclidine Scrn Negative (NEGATIVE) Ur Amphetamine Screen Positive H (NEGATIVE) U Methamphetamines Scrn Positive H (NEGATIVE) Urine MDMA Screen Positive H (NEGATIVE) U Benzodiazepines Scrn Positive H (NEGATIVE) Urine Cocaine Screen Negative (NEGATIVE) U Marijuana (THC) Screen Negative (NEGATIVE) Meds: Medications Discontinued Medications Generic Name Dose Route Start Last Admin Trade Name Freq PRN Reason Stop Dose Admin Clonidine HCl 0.2 mg 12/27/19 09:47 12/27/19 09:55 Catapres PO 12/27/19 09:48 0.2 mg ONETIME ONE Administration Sodium Chloride 1,000 mls @ 999 mls/hr 12/27/19 08:00 12/27/19 08:10 Normal Saline IV 12/27/19 09:00 999 mls/hr .BOLUS ONE Administration Multivitamins/Minerals 10 ml/ 1,011.2 mls @ 999 mls/hr 12/27/19 08:49 12/27/19 09:03 Thiamine HCl 100 mg/ Folic IV 12/27/19 09:49 999 mls/hr Acid 1 mg/ Lactated Ringer's .BOLUS ONE Administration Sodium Chloride 1,000 mls @ 999 mls/hr 12/27/19 10:54 12/27/19 11:03 Normal Saline IV 12/27/19 11:54 999 mls/hr .BOLUS ONE Administration Lorazepam 2 mg 12/27/19 07:58 12/27/19 08:10 Ativan IVPUSH 12/27/19 07:59 2 mg ONETIME ONE Administration - Re-Assessments/Exams Free Text/Narrative Re-Assessment/Exam: 12/27/19: 07:[address] IVB LR wide open. Ativan 2mg IVP. Will draw CMP, CBC, D-Dimer, and Tox screen. 12/27/19 08:33 Labs showing dehydration. Liver enzymes elevated. 12/27/19 08:57 HR 150-160, will give banana bag. 12/27/19 09:48 HR sustaining 140-150s. Banana bag infusing. Will give Clonidine 0.2mg as Tox Screen is pending d/t patient's inability to pee. 12/27/19 13:02 Treating tachycardia with Clonidine 0.1 mg BID at home. Patient to follow up with health and human resources Saturday/Saturday of this week. Departure - Departure Time of Disposition: 13:02 Disposition: Home, Self-Care 01 Condition: Good Clinical Impression: Methamphetamine abuse, Elevated liver enzymes, Intoxication Forms: ED Department Discharge Additional Instructions: Follow up with your primary care provider regarding elevated liver enzymes. Do not use methamphetamines. Do not drink liquor to excess. Sepsis Event Note (ED) - Focused Exam Vital Signs: Vital Signs Temp Pulse Resp BP BP Pulse Ox 12/27/19 09:55 137/77 12/27/19 07:55 98.1 F 152 H 30 H 162/111 H 98 - My Orders Last 24 Hours: My Active Orders 12/27/19 07:50 EKG Documentation Completion [RC] STAT - Assessment/Plan Last 24 Hours: My Active Orders 12/27/19 07:50 EKG Documentation Completion [RC] STAT
[2019-12-27] MEDS ORDERED: LORazepam 2 MG/ML SDV IVPUSH ONE (07:58)
[2019-12-27] MEDS ORDERED: Sodium Chloride 0.9% 1,000 ML IV ONE ×2 (08:00→10:54)
[2019-12-27 08:10] VITALS: PULSE 152
[2019-12-27 08:18] LABS: ANION GAP 24.9 mEq/L (7-13); CHLORIDE,CL 101 mmol/L (98-107); SODIUM,NA 143 mmol/L (136-145)
[2019-12-27] MEDS ORDERED: MVI, Adult with Vitamin K 10 ML, Thiamine 100 MG, Folic Acid 1 MG in Lactated Ringers 1... IV ONE ×4 (08:49)
[2019-12-27] MEDS ORDERED: cloNIDine 0.1 MG Tab PO ONE (09:47)
[2019-12-27 09:56] VITALS: BP 137/77
== END 2019-12-27 13:00 | disposition home or self-care (01) ==
LOC: DL.ED 07:41
DX: F10.129 Alcohol abuse with intoxication, unspecified (principal); F15.10 Other stimulant abuse, uncomplicated; R74.8 Abnormal levels of other serum enzymes; E86.0 Dehydration; R07.89 Other chest pain
CPT/HCPCS: 36415; 80053; 80305; 81001; 84484; 85025; 85379; 93005; 93010; 96374; 96375; 99283; 99285; A9270; J2060; J3411; J7030; J7120; J3490

== ENCOUNTER 2020-02-26 18:58 | Emergency (ER) | payer MEDICAID, OTHER ==
[2020-02-26] MEDS ORDERED: LORazepam 1 MG Tab PO ONE (18:59)
[2020-02-26] MEDS ORDERED: LORazepam 2 MG/ML SDV IVPUSH ONE ×2 (19:47→20:52)
[2020-02-26] MEDS ORDERED: MVI, Adult with Vitamin K 10 ML, Folic Acid 1 MG, Thiamine 100 MG in Lactated Ringers 1... IV ONE ×4 (19:47)
[2020-02-26 20:21] LABS: ANION GAP 15.9 mEq/L (7-13); CHLORIDE,CL 97 mmol/L (98-107); SODIUM,NA 134 mmol/L (136-145)
--- NOTE | 2020-02-26 20:56 | EDM.PDOCBH ---
ED HPI GENERAL MEDICAL PROBLEM - General Chief Complaint: Drug or Alcohol Abuse Stated Complaint: ANXIETY ATTACK Time Seen by Provider: 02/26/20 19:30 Source of Information: Reports: Patient History Limitations: Reports: No Limitations - History of Present Illness INITIAL COMMENTS - FREE TEXT/NARRATIVE: Heavy ETOH past 2 weeks, last 36 hours ago. Shakes, sweats, cant sleep, No hx withdrawal seizure, Reports withdrawal from meth and pills in past but not from ETOH. No recent drug use. Just been drinking in past year. - Related Data Allergies Allergy/AdvReac Type Severity Reaction Status Date / Time No Known Allergies Allergy Verified 02/26/20 21:07 Home Meds: Home Meds . [No Known Home Meds] 02/26/20 [History] CIWAA - CIWAA CIWAA Nausea And Vomitin - Mild Nausea with No Vomiting CIWAA Tremor: 5 CIWAA Paroxysmal Sweats: 1 - Barely Perceptible Sweating, Palms Moist CIWAA Anxiety: 2 CIWAA Agitation: 2 CIWAA Tactile Disturbances: 1 - Very Mild Itching, Pins and [place], Burning or Numbness CIWAA Auditory Disturbances: 2 - Mild Harshness or Ability to Frighten CIWAA Visual Disturbances: 0 - Not Present CIWAA Headache, Fullness in Head: 0 - Not Present CIWAA Orientation And Clouding Of Sensorium: 0 - Oriented and Can do Serial Additions CIWAA Scale Score: 14 Past Medical History - Past Health History Medical/Surgical History: Denies Medical/Surgical History HEENT History: Reports: Impaired Vision Other HEENT History: patient wears corrective lenses Cardiovascular History: Reports: None Respiratory History: Reports: None Gastrointestinal History: Reports: None Genitourinary History: Reports: None Musculoskeletal History: Reports: None Neurological History: Reports: None Psychiatric History: Reports: Addiction Endocrine/Metabolic History: Reports: None Hematologic History: Reports: None Immunologic History: Reports: None Oncologic (Cancer) History: Reports: None Dermatologic History: Reports: None - Past Surgical History HEENT Surgical History: Reports: Oral Surgery Cardiovascular Surgical History: Reports: None Respiratory Surgical History: Reports: None GI Surgical History: Reports: None Musculoskeletal Surgical History: Reports: None Social & Family History - Family History Family Medical History: No Pertinent Family History - Caffeine Use Caffeine Use: Reports: Energy Drinks ED ROS GENERAL - Review of Systems Review Of Systems: Comprehensive ROS is negative, except as noted in HPI. ED EXAM, BEHAVIORAL HEALTH - Physical Exam Exam: See Below Exam Limited By: No Limitations General Appearance: Alert, Anxious Eye Exam: Bilateral Eye: EOMI Ears: Normal External Exam, Hearing Grossly Normal Nose: No: Nasal Drainage Throat/Mouth: Normal Voice. No: No Airway Compromise Neck: Normal Inspection Respiratory/Chest: No Respiratory Distress, Lungs Clear, Normal Breath Sounds Cardiovascular: Regular Rate, Rhythm, Tachycardia GI/Abdominal: Normal Bowel Sounds, Soft, Non-Tender Back Exam: Normal Inspection, Full Range of Motion Extremities: Normal Inspection Neurological: Alert, Normal Cognition, Oriented x 3, Tremor Psychiatric: Restless, Poor Eye Contact, Auditory Hallucinations. No: Homicidal Thoughts, Suicidal Thoughts, Threatening Behavior Skin Exam: Warm, Diaphoretic (palms) COURSE, BEHAVIORAL HEALTH COMP - Course Vital Signs: Last Vital Signs Temp 99.0 F 02/26/20 19:22 Pulse 141 H 02/26/20 19:22 Resp 20 02/26/20 19:22 BP 174/104 H 02/26/20 19:22 Pulse Ox 98 02/26/20 19:22 Orders, Labs, Meds: Laboratory Tests 02/26/20 02/26/20 02/26/20 Range/Units 19:55 19:55 20:54 WBC 16.4 H (5.0-10.0) 10^3/uL RBC 4.60 (4.6-6.2) 10^6/uL Hgb 14.9 (14.0-18.0) g/dL Hct 42.9 (40.0-54.0) % MCV 93.3 (80-100) fL MCH 32.4 (27.0-34.0) pg MCHC 34.7 (33.0-35.0) g/dL Plt Count 357 (150-450) 10^3/uL Neut % (Auto) 89.6 H (42.2-75.2) % Lymph % (Auto) 4.9 L (20.5-50.1) % [place] % (Auto) 5.1 (2-8) % Eos % (Auto) 0.0 L (1.0-3.0) % Baso % (Auto) 0.4 (0.0-1.0) % Sodium 134 L (136-145) mmol/L Potassium 3.9 (3.5-5.1) mmol/L Chloride 97 L (98-107) mmol/L Carbon Dioxide 25 (21-32) mmol/L Anion Gap 15.9 H (7-13) mEq/L BUN 10 (7-18) mg/dL Creatinine 1.15 (0.70-1.30) mg/dL Est Cr Clr Drug Dosing 91.70 mL/min Estimated GFR (MDRD) > 60 BUN/Creatinine Ratio 8.7 (No establ ref range) Glucose 119 H (74-99) mg/dL Calcium 9.4 (8.5-10.1) mg/dL Total Bilirubin 0.4 (0.2-1.0) mg/dL AST 116 H (15-37) U/L ALT 204 H (16-63) U/L Alkaline Phosphatase 128 H (46-116) U/L Total Protein 8.2 (6.4-8.2) g/dL Albumin 4.4 (3.4-5.0) g/dL Globulin 3.8 Albumin/Globulin Ratio 1.2 Amylase 31 (25-115) U/L Lipase 44 L (73-393) U/L Urine Color Yellow (YELLOW) Urine Appearance Clear (CLEAR) Urine pH 6.5 (5.0-9.0) Ur Specific [place] >= 1.030 (1.005-1.030) Urine Protein 30 H (NEGATIVE) Urine Glucose (UA) Negative (NEGATIVE) Urine Ketones Negative (NEGATIVE) Urine Occult Blood Negative (NEGATIVE) Urine Nitrite Negative (NEGATIVE) Urine Bilirubin Negative (NEGATIVE) Urine Urobilinogen 0.2 (0.2-1.0) mg/dL Ur Leukocyte Esterase Negative (NEGATIVE) Urine RBC 0-5 /HPF Urine WBC 0-5 (0-5/HPF) /HPF Ur Epithelial Cells Rare (NOT SEEN) /HPF Urine Bacteria Rare (0-FEW/HPF) /HPF Urine Opiates Screen (NEGATIVE) Ur Oxycodone Screen (NEGATIVE) Urine Methadone Screen (NEGATIVE) Ur Barbiturates Screen (NEGATIVE) U Tricyclic Antidepress (NEGATIVE) Ur Phencyclidine Scrn (NEGATIVE) Ur Amphetamine Screen (NEGATIVE) U Methamphetamines Scrn (NEGATIVE) Urine MDMA Screen (NEGATIVE) U Benzodiazepines Scrn (NEGATIVE) Urine Cocaine Screen (NEGATIVE) U Marijuana (THC) Screen (NEGATIVE) Ethyl Alcohol < 3 (0) mg/dL 02/26/20 Range/Units 20:54 WBC (5.0-10.0) 10^3/uL RBC (4.6-6.2) 10^6/uL Hgb (14.0-18.0) g/dL Hct (40.0-54.0) % MCV (80-100) fL MCH (27.0-34.0) pg MCHC (33.0-35.0) g/dL Plt Count (150-450) 10^3/uL Neut % (Auto) (42.2-75.2) % Lymph % (Auto) (20.5-50.1) % [place] % (Auto) (2-8) % Eos % (Auto) (1.0-3.0) % Baso % (Auto) (0.0-1.0) % Sodium (136-145) mmol/L Potassium (3.5-5.1) mmol/L Chloride (98-107) mmol/L Carbon Dioxide (21-32) mmol/L Anion Gap (7-13) mEq/L BUN (7-18) mg/dL Creatinine (0.70-1.30) mg/dL Est Cr Clr Drug Dosing mL/min Estimated GFR (MDRD) BUN/Creatinine Ratio (No establ ref range) Glucose (74-99) mg/dL Calcium (8.5-10.1) mg/dL Total Bilirubin (0.2-1.0) mg/dL AST (15-37) U/L ALT (16-63) U/L Alkaline Phosphatase (46-116) U/L Total Protein (6.4-8.2) g/dL Albumin (3.4-5.0) g/dL Globulin Albumin/Globulin Ratio Amylase (25-115) U/L Lipase (73-393) U/L Urine Color (YELLOW) Urine Appearance (CLEAR) Urine pH (5.0-9.0) Ur Specific [place] (1.005-1.030) Urine Protein (NEGATIVE) Urine Glucose (UA) (NEGATIVE) Urine Ketones (NEGATIVE) Urine Occult Blood (NEGATIVE) Urine Nitrite (NEGATIVE) Urine Bilirubin (NEGATIVE) Urine Urobilinogen (0.2-1.0) mg/dL Ur Leukocyte Esterase (NEGATIVE) Urine RBC /HPF Urine WBC (0-5/HPF) /HPF Ur Epithelial Cells (NOT SEEN) /HPF Urine Bacteria (0-FEW/HPF) /HPF Urine Opiates Screen Negative (NEGATIVE) Ur Oxycodone Screen Positive H (NEGATIVE) Urine Methadone Screen Negative (NEGATIVE) Ur Barbiturates Screen Negative (NEGATIVE) U Tricyclic Antidepress Negative (NEGATIVE) Ur Phencyclidine Scrn Negative (NEGATIVE) Ur Amphetamine Screen Positive H (NEGATIVE) U Methamphetamines Scrn Positive H (NEGATIVE) Urine MDMA Screen Negative (NEGATIVE) U Benzodiazepines Scrn Negative (NEGATIVE) Urine Cocaine Screen Negative (NEGATIVE) U Marijuana (THC) Screen Negative (NEGATIVE) Ethyl Alcohol (0) mg/dL Medications Discontinued Medications Generic Name Dose Route Start Last Admin Trade Name Freq PRN Reason Stop Dose Admin Multivitamins/Minerals 10 ml/ 1,011.2 mls @ 999 mls/hr 02/26/20 19:47 02/26/20 20:15 Folic Acid 1 mg/ Thiamine HCl IV 02/26/20 20:47 999 mls/hr 100 mg/ Lactated Ringer's ONETIME ONE Administration Lorazepam 1 mg 02/26/20 19:47 02/26/20 20:16 Ativan IVPUSH 02/26/20 19:48 1 mg ONETIME ONE Administration Lorazepam 1 mg 02/26/20 20:52 02/26/20 21:03 Ativan IVPUSH 02/26/20 20:53 1 mg ONETIME ONE Administration Lorazepam Confirm 02/26/20 21:23 02/26/20 21:26 Ativan Administered 02/26/20 21:24 Not Given Dose 3 mg .ROUTE .STK-MED ONE Departure - Departure Time of Disposition: 21:29 Disposition: Home, Self-Care 01 Condition: Good Clinical Impression: Alcohol abuse, Methamphetamine abuse Alcohol withdrawal Qualifiers: Complication of substance-induced condition: with unspecified complication Qualified Code(s): F10.239 - Alcohol dependence with withdrawal, unspecified - Discharge Information *PRESCRIPTION DRUG MONITORING PROGRAM REVIEWED*: No *COPY OF PRESCRIPTION DRUG MONITORING REPORT IN PATIENT NIKITA: No Instructions: Alcohol Withdrawal Syndrome Referrals: PCP,None [Primary Care Provider] - Forms: ED Department Discharge Additional Instructions: follow up for alcohol treatment remain in safe environment away from alcohol increase fluids rest dark environment ativan 1mg one every 4 hours as needed for withdrawal symptoms Sepsis Event Note (ED) - Focused Exam Vital Signs: Vital Signs Temp Pulse Resp BP Pulse Ox 02/26/20 19:22 99.0 F 141 H 20 174/104 H 98
[2020-02-26 21:07] VITALS: BP 174/104; PULSE 141
[2020-02-26] MEDS ORDERED: LORazepam 1 MG Tab ONE (21:23)
== END 2020-02-26 21:40 | disposition home or self-care (01) ==
LOC: DL.ED 18:58
DX: F10.239 Alcohol dependence with withdrawal, unspecified (principal); F15.10 Other stimulant abuse, uncomplicated
CPT/HCPCS: 36415; 80053; 80305-QW; 80307; 81001; 82150; 83690; 85025; 96365; 96375; 96376; 99283; 99284-25; A9270-GY; J2060; J3411; J3490; J7120

== ENCOUNTER 2020-07-17 15:23 | Emergency (ER) | payer MEDICAID ==
[2020-07-17] MEDS ORDERED: Sodium Chloride 0.9% 10 ML Syringe FLUSH PRN (15:37)
[2020-07-17] MEDS ORDERED: LORazepam 2 MG/ML SDV IVPUSH ONE ×2 (15:39→16:50)
[2020-07-17] MEDS ORDERED: Sodium Chloride 0.9% 1,000 ML IV ONE (15:39)
[2020-07-17 15:51] VITALS: BP 157/102; PULSE 129
[2020-07-17 16:31] LABS: ANION GAP 16.3 mEq/L (7-13); CHLORIDE,CL 95 mmol/L (98-107); SODIUM,NA 135 mmol/L (136-145)
--- NOTE | 2020-07-17 16:39 | CR ---
PROCEDURE INFORMATION: Exam: XR Chest Exam date and time: 07/17/2020 4:18 PM Age: 30 years old Clinical indication: Other: Chest pain TECHNIQUE: Imaging protocol: XR of the chest. Views: 1 view. COMPARISON: No relevant prior studies available. FINDINGS: Airway: The airways are patent. Lungs: No acute interstitial or airspace disease. There are multiple punctate pulmonary parenchymal calcifications, consistent with remote granulomatous organism exposure. Pleural spaces: There are no pleural effusions present. There is no evidence of pneumothorax. Heart/Mediastinum: Heart is of normal size and morphology. Bones/joints: No acute skeletal abnormality or aggressive osseous lesion. IMPRESSION: Negative for acute thoracic pathology.
--- NOTE | 2020-07-17 17:01 | EDM.PDOC ---
Scribed by Shama Rodriguez 07/17/20 [id number] for Mikel Davis MD ED HPI GENERAL MEDICAL PROBLEM - General Chief Complaint: Drug or Alcohol Abuse Stated Complaint: CHEST PAIN / TROUBLE BREATHING Time Seen by Provider: 07/17/20 15:34 Source of Information: Reports: Patient, RN, RN Notes Reviewed History Limitations: Reports: No Limitations - History of Present Illness INITIAL COMMENTS - FREE TEXT/NARRATIVE: Patient presents to ED by POV with complaint that he snorted and smoked a much larger amount of methamphetamine then he usually uses and almost immediately developed chest pain, rapid heart rate, severely dry mouth and anxiety. Pt states he has been to drug treatment 3 times, but always relapses. He wants to quit, but feels he needs help. He denies suicidal thoughts. Onset: Today Duration: Constant Location: Reports: Chest Severity: Severe Improves with: Reports: None Worsens with: Reports: None Associated Symptoms: Reports: No Other Symptoms Chest Pain Score (Numeric/FACES): 6 - Related Data Allergies Allergy/AdvReac Type Severity Reaction Status Date / Time No Known Allergies Allergy Verified 07/17/20 15:51 Home Meds: Home Meds . [No Known Home Meds] 02/26/20 [History] Past Medical History - Past Health History Medical/Surgical History: Denies Medical/Surgical History HEENT History: Reports: Impaired Vision Other HEENT History: patient wears corrective lenses Cardiovascular History: Reports: None Respiratory History: Reports: None Gastrointestinal History: Reports: None Genitourinary History: Reports: None Musculoskeletal History: Reports: None Neurological History: Reports: None Psychiatric History: Reports: Addiction Endocrine/Metabolic History: Reports: None Hematologic History: Reports: None Immunologic History: Reports: None Oncologic (Cancer) History: Reports: None Dermatologic History: Reports: None - Past Surgical History HEENT Surgical History: Reports: Oral Surgery Cardiovascular Surgical History: Reports: None Respiratory Surgical History: Reports: None GI Surgical History: Reports: None Musculoskeletal Surgical History: Reports: None Social & Family History - Family History Family Medical History: No Pertinent Family History - Caffeine Use Caffeine Use: Reports: Energy Drinks - Living Situation & Occupation Living situation: Reports: with Family ED ROS GENERAL - Review of Systems Review Of Systems: Comprehensive ROS is negative, except as noted in HPI. ED EXAM, GENERAL - Physical Exam Exam: See Below Exam Limited By: No Limitations General Appearance: Alert, WD/WN, Anxious, Other (tremor) Eye Exam: Bilateral Eye: EOMI, Normal Inspection, PERRL Ears: Normal External Exam, Normal Canal, Hearing Grossly Normal, Normal TMs Nose: Normal Inspection, Normal Mucosa, No Blood Throat/Mouth: Normal Inspection, Normal Lips, Normal Teeth, Normal Gums, Normal Oropharynx, Normal Voice, No Airway Compromise Head: Atraumatic, Normocephalic Neck: Normal Inspection, Supple, Non-Tender, Full Range of Motion Respiratory/Chest: No Respiratory Distress, Lungs Clear, Normal Breath Sounds, No Accessory Muscle Use, Chest Non-Tender Cardiovascular: Normal Peripheral Pulses, Regular Rate, Rhythm, No Edema, No Gallop, No JVD, No Murmur, No Rub GI/Abdominal: Normal Bowel Sounds, Soft, Non-Tender, No Organomegaly, No Distention, No Abnormal Bruit, No Mass (Male) Exam: Deferred Rectal (Males) Exam: Deferred Back Exam: Normal Inspection, Full Range of Motion, NT Extremities: Normal Inspection, Normal Range of Motion, Non-Tender, Normal Capillary Refill, No Pedal Edema Neurological: Alert, Oriented, CN II-XII Intact, Normal Cognition, Normal Gait, Normal Reflexes, No Motor/Sensory Deficits Psychiatric: Normal Affect, Normal Mood Skin Exam: Warm, Dry, Intact, Normal Color, No Rash #1 Interpretation EKG Date: 07/17/20 Time: 15:38 Rhythm: Other (sinus tachycardia) Rate (Beats/Min): 119 [place]: Normal P-Wave: Present QRS: Normal ST-T: Other (borderline repolarization abnormality) QT: Prolonged Course - Vital Signs Last Recorded V/S: Last Vital Signs Temp 97.3 F 07/17/20 15:47 Pulse 124 H 07/17/20 15:47 Resp 22 H 07/17/20 15:47 BP 163/97 H 07/17/20 15:47 Pulse Ox 97 07/17/20 15:47 - Orders/Labs/Meds Orders: Active Orders 24 hr Category Date Time Status EKG 12 Lead [EKG Documentation Completion] [RC] STAT Care 07/17/20 15:38 Active Peripheral IV Care [RC] . DIRECTED Care 07/17/20 15:39 Active UA W/MICROSCOPIC [URIN] Stat Lab 07/17/20 15:47 Results Sodium Chloride 0.9% [Saline Flush] Med 07/17/20 15:37 Active 10 ml FLUSH ASDIRECTED PRN Peripheral IV Insertion Adult [OM.PC] Stat Oth 07/17/20 15:38 Ordered Medication Orders Sodium Chloride (Sodium Chloride 0.9% 10 Ml Syringe) 10 ml FLUSH ASDIRECTED PRN PRN Reason: Keep Vein Open Last Admin: 07/17/20 16:05 Dose: 10 ml Documented by: KEY Labs: Laboratory Tests 07/17/20 07/17/20 07/17/20 Range/Units 15:47 15:47 16:00 WBC 10.9 H (5.0-10.0) 10^3/uL RBC 5.05 (4.6-6.2) 10^6/uL Hgb 16.0 (14.0-18.0) g/dL Hct 45.9 (40.0-54.0) % MCV 90.9 (80-100) fL MCH 31.7 (27.0-34.0) pg MCHC 34.9 (33.0-35.0) g/dL Plt Count 357 (150-450) 10^3/uL Neut % (Auto) 80.2 H (42.2-75.2) % Lymph % (Auto) 9.2 L (20.5-50.1) % [place] % (Auto) 10.0 H (2-8) % Eos % (Auto) 0.1 L (1.0-3.0) % Baso % (Auto) 0.5 (0.0-1.0) % Sodium (136-145) mmol/L Potassium (3.5-5.1) mmol/L Chloride (98-107) mmol/L Carbon Dioxide (21-32) mmol/L Anion Gap (7-13) mEq/L BUN (7-18) mg/dL Creatinine (0.70-1.30) mg/dL Est Cr Clr Drug Dosing mL/min Estimated GFR (MDRD) BUN/Creatinine Ratio (No establ ref range) Glucose (70-99) mg/dL Calcium (8.5-10.1) mg/dL Total Bilirubin (0.2-1.0) mg/dL AST (15-37) U/L ALT (16-63) U/L Alkaline Phosphatase (46-116) U/L Troponin I (0.000-0.056) ng/mL Total Protein (6.4-8.2) g/dL Albumin (3.4-5.0) g/dL Globulin Albumin/Globulin Ratio Urine Color [place] (YELLOW) Urine Appearance Clear (CLEAR) Urine pH 6.0 (5.0-9.0) Ur Specific [place] >= 1.030 (1.005-1.030) Urine Protein 100 H (NEGATIVE) Urine Glucose (UA) Negative (NEGATIVE) Urine Ketones Trace H (NEGATIVE) Urine Occult Blood Negative (NEGATIVE) Urine Nitrite Negative (NEGATIVE) Urine Bilirubin Small H (NEGATIVE) Urine Urobilinogen 0.2 (0.2-1.0) mg/dL Ur Leukocyte Esterase Negative (NEGATIVE) Urine Opiates Screen Positive H (NEGATIVE) Ur Oxycodone Screen Negative (NEGATIVE) Urine Methadone Screen Negative (NEGATIVE) Ur Barbiturates Screen Negative (NEGATIVE) U Tricyclic Antidepress Negative (NEGATIVE) Ur Phencyclidine Scrn Negative (NEGATIVE) Ur Amphetamine Screen Positive H (NEGATIVE) U Methamphetamines Scrn Positive H (NEGATIVE) Urine MDMA Screen Positive H (NEGATIVE) U Benzodiazepines Scrn Negative (NEGATIVE) Urine Cocaine Screen Negative (NEGATIVE) U Marijuana (THC) Screen Positive H (NEGATIVE) Ethyl Alcohol (0) mg/dL 07/17/20 Range/Units 16:00 WBC (5.0-10.0) 10^3/uL RBC (4.6-6.2) 10^6/uL Hgb (14.0-18.0) g/dL Hct (40.0-54.0) % MCV (80-100) fL MCH (27.0-34.0) pg MCHC (33.0-35.0) g/dL Plt Count (150-450) 10^3/uL Neut % (Auto) (42.2-75.2) % Lymph % (Auto) (20.5-50.1) % [place] % (Auto) (2-8) % Eos % (Auto) (1.0-3.0) % Baso % (Auto) (0.0-1.0) % Sodium 135 L (136-145) mmol/L Potassium 3.3 L (3.5-5.1) mmol/L Chloride 95 L (98-107) mmol/L Carbon Dioxide 27 (21-32) mmol/L Anion Gap 16.3 H (7-13) mEq/L BUN 8 (7-18) mg/dL Creatinine 1.13 (0.70-1.30) mg/dL Est Cr Clr Drug Dosing 93.32 mL/min Estimated GFR (MDRD) > 60 BUN/Creatinine Ratio 7.1 (No establ ref range) Glucose 117 H (70-99) mg/dL Calcium 8.9 (8.5-10.1) mg/dL Total Bilirubin 1.0 (0.2-1.0) mg/dL AST 132 H (15-37) U/L ALT 309 H (16-63) U/L Alkaline Phosphatase 143 H (46-116) U/L Troponin I < 0.017 (0.000-0.056) ng/mL Total Protein 8.2 (6.4-8.2) g/dL Albumin 4.3 (3.4-5.0) g/dL Globulin 3.9 Albumin/Globulin Ratio 1.1 Urine Color (YELLOW) Urine Appearance (CLEAR) Urine pH (5.0-9.0) Ur Specific [place] (1.005-1.030) Urine Protein (NEGATIVE) Urine Glucose (UA) (NEGATIVE) Urine Ketones (NEGATIVE) Urine Occult Blood (NEGATIVE) Urine Nitrite (NEGATIVE) Urine Bilirubin (NEGATIVE) Urine Urobilinogen (0.2-1.0) mg/dL Ur Leukocyte Esterase (NEGATIVE) Urine Opiates Screen (NEGATIVE) Ur Oxycodone Screen (NEGATIVE) Urine Methadone Screen (NEGATIVE) Ur Barbiturates Screen (NEGATIVE) U Tricyclic Antidepress (NEGATIVE) Ur Phencyclidine Scrn (NEGATIVE) Ur Amphetamine Screen (NEGATIVE) U Methamphetamines Scrn (NEGATIVE) Urine MDMA Screen (NEGATIVE) U Benzodiazepines Scrn (NEGATIVE) Urine Cocaine Screen (NEGATIVE) U Marijuana (THC) Screen (NEGATIVE) Ethyl Alcohol < 3 (0) mg/dL Meds: Medications Generic Name Dose Route Start Last Admin Trade Name Freq PRN Reason Stop Dose Admin Sodium Chloride 10 ml 07/17/20 15:37 07/17/20 16:05 Sodium Chloride 0.9% 10 Ml Syringe FLUSH 10 ml ASDIRECTED PRN Administration Keep Vein Open Discontinued Medications Generic Name Dose Route Start Last Admin Trade Name Freq PRN Reason Stop Dose Admin Sodium Chloride 1,000 mls @ 999 mls/hr 07/17/20 15:39 07/17/20 16:03 Normal Saline IV 07/17/20 16:39 999 mls/hr .BOLUS ONE Administration Lorazepam 2 mg 07/17/20 15:39 07/17/20 16:04 Lorazepam 2 Mg/Ml Sdv IVPUSH 07/17/20 15:40 2 mg ONETIME ONE Administration Lorazepam 2 mg 07/17/20 16:50 Lorazepam 2 Mg/Ml Sdv IVPUSH 07/17/20 16:51 ONETIME ONE - Re-Assessments/Exams Free Text/Narrative Re-Assessment/Exam: 07/17/20 16:53 Pt feeling much better. He agrees to go home with his mother and abstain from drug use tonight. He plans to go to the [facility] tomorrow to see if they can send him to an inpatient drug treatment program. 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 Go to the [facility] in [place] tomorrow morning (SaturdayJuly 20) for further evaluation and referral to an inpatient drug treatment program. You have been medically cleared for treatment at this ER visit. Sepsis Event Note (ED) - Focused Exam Vital Signs: Vital Signs Temp Pulse Pulse Resp BP BP Pulse Ox 07/17/20 15:47 97.3 F 124 H 22 H 163/97 H 97 07/17/20 15:41 98.6 F 129 H 16 157/102 H 99 - My Orders Last 24 Hours: My Active Orders 07/17/20 15:37 Sodium Chloride 0.9% [Saline Flush] 10 ml FLUSH ASDIRECTED PRN 07/17/20 15:38 EKG 12 Lead [EKG Documentation Completion] [RC] STAT Peripheral IV Insertion Adult [OM.PC] Stat 07/17/20 15:39 Peripheral IV Care [RC] . DIRECTED 07/17/20 15:47 UA W/MICROSCOPIC [URIN] Stat - Assessment/Plan Last 24 Hours: My Active Orders 07/17/20 15:37 Sodium Chloride 0.9% [Saline Flush] 10 ml FLUSH ASDIRECTED PRN 07/17/20 15:38 EKG 12 Lead [EKG Documentation Completion] [RC] STAT Peripheral IV Insertion Adult [OM.PC] Stat 07/17/20 15:39 Peripheral IV Care [RC] . DIRECTED 07/17/20 15:47 UA W/MICROSCOPIC [URIN] Stat I have read and agree with the documentation that has been completed regarding this visit. By signing this record, I attest that the documentation was completed in my physical presence and is an accurate record of the encounter.
== END 2020-07-17 17:10 | disposition home or self-care (01) ==
LOC: DL.ED 15:23
DX: F15.180 Other stimulant abuse with stimulant-induced anxiety disorder (principal); F11.10 Opioid abuse, uncomplicated; F12.10 Cannabis abuse, uncomplicated; F15.129 Other stimulant abuse with intoxication, unspecified
CPT/HCPCS: 36415; 71045; 80053; 80305; 80307; 81001; 84484; 85025; 93005; 93010; 96374; 96376; 99283; 99285; J2060; J7030

== ENCOUNTER 2020-08-06 12:50 | Emergency (ER) | payer MEDICAID ==
[2020-08-06] MEDS ORDERED: diphenhydrAMINE 50 MG/ML SDV IVPUSH ONE (13:08)
[2020-08-06] MEDS ORDERED: LORazepam 2 MG/ML SDV IVPUSH ONE (13:08)
[2020-08-06] MEDS ORDERED: Sodium Chloride 0.9% 1,000 ML IV ONE (13:08)
[2020-08-06 13:25] VITALS: BP 126/97; PULSE 138
[2020-08-06] MEDS ORDERED: Haloperidol Lactate 5 MG/ML SDV IVPUSH ONE (13:35)
--- NOTE | 2020-08-06 14:06 | EDM.PDOCBH ---
Scribed by Shama Rodriguez 08/06/20 [id number] for Kim Garcia NP ED HPI GENERAL MEDICAL PROBLEM - General Chief Complaint: Drug or Alcohol Abuse Stated Complaint: PT HEART IS POUNDING STATED HE TOOK TO MUCH METH Time Seen by Provider: 08/06/20 13:01 Source of Information: Reports: Patient, RN, RN Notes Reviewed History Limitations: Reports: No Limitations - History of Present Illness INITIAL COMMENTS - FREE TEXT/NARRATIVE: Patient is a 30-year-old male who presents to ER with complaint "doing to much meth". Admits to chest pain, shortness of breath, chills and feeling of heart racing. States he did "2 hot rails" yesterday. States he also drinks about 12 ounces of alcohol/beer plus liquor. Also uses oxycodone--last used 2 days ago. Denies any otherhealth problems. Admits to visual and auditory hallucinations. Patient very anxious, fidgety and shaky. Onset: Gradual Duration: Getting Worse Location: Reports: Other (fast heart rate) Quality: Reports: Ache Severity: Moderate Improves with: Reports: None Worsens with: Reports: None Associated Symptoms: Reports: No Other Symptoms - Related Data Allergies Allergy/AdvReac Type Severity Reaction Status Date / Time No Known Allergies Allergy Verified 07/17/20 15:51 Home Meds: Home Meds . [No Known Home Meds] 02/26/20 [History] Past Medical History - Past Health History Medical/Surgical History: Denies Medical/Surgical History HEENT History: Reports: Impaired Vision Other HEENT History: patient wears corrective lenses Cardiovascular History: Reports: None Respiratory History: Reports: None Gastrointestinal History: Reports: None Genitourinary History: Reports: None Musculoskeletal History: Reports: None Neurological History: Reports: None Psychiatric History: Reports: Addiction Endocrine/Metabolic History: Reports: None Hematologic History: Reports: None Immunologic History: Reports: None Oncologic (Cancer) History: Reports: None Dermatologic History: Reports: None - Infectious Disease History Infectious Disease History: Reports: Chicken Pox - Past Surgical History Head Surgeries/Procedures: Reports: None HEENT Surgical History: Reports: Oral Surgery Cardiovascular Surgical History: Reports: None Respiratory Surgical History: Reports: None GI Surgical History: Reports: None Musculoskeletal Surgical History: Reports: None Social & Family History - Family History Family Medical History: No Pertinent Family History - Caffeine Use Caffeine Use: Reports: Soda - Living Situation & Occupation Living situation: Reports: with Family ED ROS GENERAL - Review of Systems Review Of Systems: Comprehensive ROS is negative, except as noted in HPI. ED EXAM, BEHAVIORAL HEALTH - Physical Exam Exam: See Below Exam Limited By: No Limitations General Appearance: Anxious Eye Exam: Bilateral Eye: EOMI, Normal Inspection, PERRL Ears: Normal External Exam, Normal Canal, Hearing Grossly Normal, Normal TMs Nose: Normal Inspection, Normal Mucosa, No Blood Throat/Mouth: Normal Inspection, Normal Lips, Normal Teeth, Normal Gums, Normal Oropharynx, Normal Voice, No Airway Compromise Head: Atraumatic, Normocephalic Neck: Normal Inspection, Supple, Non-Tender, Full Range of Motion Respiratory/Chest: No Respiratory Distress Cardiovascular: Tachycardia GI/Abdominal: Normal Bowel Sounds, Soft, Non-Tender, No Organomegaly, No Distention, No Abnormal Bruit, No Mass (Male) Exam: Deferred Rectal (Males) Exam: Deferred Back Exam: Normal Inspection, Full Range of Motion, NT Extremities: Normal Inspection, Normal Range of Motion, Non-Tender, Normal Capillary Refill, No Pedal Edema Neurological: Alert, Normal Mood/Affect, CN II-XII Intact, Normal Cognition, Normal Gait, Normal Reflexes, No Motor/Sensory Deficits, Oriented x 3 Psychiatric: Other (anxious) Skin Exam: Warm, Dry, Intact, Normal color #1 Interpretation EKG Date: 08/06/20 Time: 13:15 Rhythm: Other (sinus tachycardia) Rate (Beats/Min): 131 EKG Interpretation Comments: consider right atrial enlargement. Repolarization abnormality suggests ischemia, diffuse leads. Artifact in lead (s) I, II, AVR, AVL, AVF, V1, V2, V3, V4, V5, V6 and baseline wander. COURSE, BEHAVIORAL HEALTH COMP - Course Vital Signs: Last Vital Signs Temp 98.1 F 08/06/20 13:03 Pulse 138 H 08/06/20 13:03 Resp 16 08/06/20 13:03 BP 126/97 H 08/06/20 13:03 Pulse Ox 99 08/06/20 13:03 Orders, Labs, Meds: Active Orders 24 hr Category Date Time Status EKG Documentation Completion [RC] STAT Care 08/06/20 13:07 Active CBC WITH AUTO DIFF [HEME] Stat Lab 08/06/20 13:21 Received Sodium Chloride 0.9% [Normal Saline] 1,000 ml Med 08/06/20 13:08 Active IV .BOLUS Medication Orders Sodium Chloride (Normal Saline) 1,000 mls @ 999 mls/hr IV .BOLUS ONE Stop: 08/06/20 14:08 Last Admin: 08/06/20 13:26 Dose: 999 mls/hr Documented by: MARCIE Medications Generic Name Dose Route Start Last Admin Trade Name Freq PRN Reason Stop Dose Admin Sodium Chloride 1,000 mls @ 999 mls/hr 08/06/20 13:08 08/06/20 13:26 Normal Saline IV 08/06/20 14:08 999 mls/hr .BOLUS ONE Administration Discontinued Medications Generic Name Dose Route Start Last Admin Trade Name Freq PRN Reason Stop Dose Admin Diphenhydramine HCl 50 mg 08/06/20 13:08 08/06/20 13:26 Diphenhydramine 50 Mg/Ml Sdv IVPUSH 08/06/20 13:09 50 mg ONETIME ONE Administration Haloperidol Lactate 5 mg 08/06/20 13:35 08/06/20 13:37 Haloperidol Lactate 5 Mg/Ml Sdv IVPUSH 08/06/20 13:36 5 mg ONETIME ONE Administration Lorazepam 2 mg 08/06/20 13:08 08/06/20 13:26 Lorazepam 2 Mg/Ml Sdv IVPUSH 08/06/20 13:09 2 mg ONETIME ONE Administration Discharge vs Psych Eval/Treatment:: 08/06/20 14:01 Patient ripped IV out and refused to stay. Nursing staff did call his mother to come and get him. He did sign AMA. Lab that was drawn was hemolyzed and when lab came back to redraw, the patient had already left. No labs were run. Departure - Departure Time of Disposition: 14:03 Disposition: Against Medical Advice 07 Condition: Fair Clinical Impression: Drug dependence, Drug abuse, Methamphetamine abuse, Methamphetamine intoxication, Tachycardia - Discharge Information *PRESCRIPTION DRUG MONITORING PROGRAM REVIEWED*: No *COPY OF PRESCRIPTION DRUG MONITORING REPORT IN PATIENT NIKITA: No Forms: ED Department Discharge, Refusal of Care AMA Sepsis Event Note (ED) - Focused Exam Vital Signs: Vital Signs Temp Pulse Resp BP Pulse Ox 08/06/20 13:03 98.1 F 138 H 16 126/97 H 99 - My Orders Last 24 Hours: My Active Orders 08/06/20 13:07 EKG Documentation Completion [RC] STAT 08/06/20 13:08 Sodium Chloride 0.9% [Normal Saline] 1,000 ml IV .BOLUS 08/06/20 13:21 CBC WITH AUTO DIFF [HEME] Stat - Assessment/Plan Last 24 Hours: My Active Orders 08/06/20 13:07 EKG Documentation Completion [RC] STAT 08/06/20 13:08 Sodium Chloride 0.9% [Normal Saline] 1,000 ml IV .BOLUS 08/06/20 13:21 CBC WITH AUTO DIFF [HEME] Stat I have read and agree with the documentation that has been completed regarding this visit. By signing this record, I attest that the documentation was completed in my physical presence and is an accurate record of the encounter.
== END 2020-08-06 14:02 | disposition left against medical advice (07) ==
LOC: DL.ED 12:50
DX: R00.0 Tachycardia, unspecified (principal); F15.229 Other stimulant dependence with intoxication, unspecified
CPT/HCPCS: 36415; 85025; 93010; 96374; 96375; 99284; 99285-25; J1200; J1630; J2060; J7030

== ENCOUNTER 2022-02-26 10:48 | Emergency (ER) | payer MEDICAID, OTHER ==
[2022-02-26 11:56] VITALS: BP 161/116; PULSE 143
[2022-02-26] MEDS ORDERED: LORazepam 2 MG/ML SDV IM ONE (14:06)
[2022-02-26] MEDS ORDERED: Sodium Chloride 0.9% 10 ML Syringe FLUSH PRN (14:08)
[2022-02-26] MEDS ORDERED: LORazepam 2 MG/ML SDV ONE (14:09)
[2022-02-26] MEDS ORDERED: diphenhydrAMINE 50 MG/ML SDV IM ONE (14:16)
[2022-02-26] MEDS ORDERED: Haloperidol Lactate 5 MG/ML SDV IM ONE (14:17)
[2022-02-26] MEDS ORDERED: Midazolam 1 MG/ML 2 ML SDV IM ONE (14:41)
[2022-02-26] MEDS ORDERED: MVI, Adult with Vitamin K 10 ML, Thiamine 100 MG, Folic Acid 1 MG in Lactated Ringers 1... IV ONE ×4 (15:41)
[2022-02-26 15:42] LABS: ANION GAP 16.1 mEq/L (7-13); CHLORIDE,CL 102 mmol/L (98-107); SODIUM,NA 141 mmol/L (136-145)
[2022-02-26 15:49] LABS: BENZODIAZEPINE,URINE NEGATIVE (NEGATIVE); MDMA (ECSTASY), URINE POSITIVE (NEGATIVE); METHADONE,URINE NEGATIVE (NEGATIVE); METHAMPHETAMINES,URINE POSITIVE (NEGATIVE); OPIATES,URINE NEGATIVE (NEGATIVE)
[2022-02-26 15:50] LABS: AMPHETAMINES,URINE POSITIVE (NEGATIVE); BARBITURATES,URINE NEGATIVE (NEGATIVE); OXYCODONE,URINE NEGATIVE (NEGATIVE); PHENCYCLIDINE,URINE NEGATIVE (NEGATIVE); TCA,URINE NEGATIVE (NEGATIVE)
[2022-02-26 15:50] LABS: PTT,PARTIAL THROMBOPLSTIN TIME 22.5 SEC (22.0-34.0)
[2022-02-26 15:51] LABS: ACETAMINOPHEN 0 ug/mL (10-30 (Therapeutic)); ESTIMATED GFR 98 mL/min (>=60)
[2022-02-26 18:24] LABS: CORONAVIRUS COVID-19 NAA NEGATIVE (NEGATIVE); RESPIRATORY SYNCYTIAL VIR NAA NEGATIVE (NEGATIVE)
== END 2022-02-26 19:35 | disposition other institution (70) ==
LOC: DL.ED 10:48
DX: F16 Hallucinogen related disorders (principal); F15.921 Other stimulant use, unspecified with intoxication delirium; F10.10 Alcohol abuse, uncomplicated; F17.210 Nicotine dependence, cigarettes, uncomplicated; Z20.822 Contact with and (suspected) exposure to COVID-19
CPT/HCPCS: 0241U; 36415; 80053; 80143; 80179; 80305; 80307; 81001; 84484; 85025; 85610; 85730; 93005; 96365; 96372; 99284; C1758; J1200; J1630; J2060; J2250; J3411; J3490; J7120

== ENCOUNTER 2022-07-25 20:57 | Emergency (ER) | payer MEDICAID | END 2022-07-25 21:15 | disposition left against medical advice (07) | LOC: DL.ED 20:57 | DX: Z53.21 Procedure and treatment not carried out due to patient leaving prior to being seen by health care provider (principal) ==

== ENCOUNTER 2022-09-01 00:06 | Emergency (ER) | payer BC, MEDICAID, OTHER ==
[2022-09-01] MEDS ORDERED: Sodium Chloride 0.9% 10 ML Syringe FLUSH PRN (00:23)
[2022-09-01] MEDS ORDERED: Lactated Ringers 1,000 ML IV SCH ×2 (00:30→02:45)
[2022-09-01 00:34] LABS: BASOPHILS PERCENT AUTO 0.5 % (0.0-1.0); EOSINOPHILS PERCENT AUTO 0.2 % (1.0-3.0); HEMATOCRIT 46.5 % (40.0-54.0); LYMPHOCYTES PERCENT AUTO 15.1 % (20.5-50.1); MEAN CORPUSCULAR HEMOGLOBIN 32.4 pg (27.0-34.0); MEAN CORPUSCULAR HGB CONC 34.4 g/dL (33.0-35.0); MEAN CORPUSCULAR VOLUME 94.1 fL (80-100); MONOCYTES PERCENT AUTO 7.9 % (2-8); NEUTROPHILS PERCENT AUTO 76.3 % (42.2-75.2); PLATELET COUNT,PLT 306 10^3/uL (150-450); RED BLOOD CELL COUNT 4.94 10^6/uL (4.6-6.2); WHITE BLOOD CELL COUNT,WBC 9.5 10^3/uL (5.0-10.0)
[2022-09-01 00:40] LABS: MAGNESIUM 2.1 mg/dL (1.8-2.4)
[2022-09-01 00:47] LABS: ALANINE AMINOTRANSFERASE,ALT 194 U/L (16-63); ALBUMIN 4.4 g/dL (3.4-5.0); ALKALINE PHOSPHATASE 135 U/L (46-116); ANION GAP 16.6 mEq/L (7-13); ASPARTATE AMNIOTRANSFERASE,AST 130 U/L (15-37); BILIRUBIN TOTAL 0.4 mg/dL (0.2-1.0); BLOOD UREA NITROGEN,BUN 6 mg/dL (7-18); BUN/CREATININE RATIO 5.7 (No establ ref range); CARBON DIOXIDE,CO2 28 mmol/L (21-32); CHLORIDE,CL 102 mmol/L (98-107); CREATININE 1.06 mg/dL (0.70-1.30); GLUCOSE RANDOM 97 mg/dL (70-99); POTASSIUM,K 3.6 mmol/L (3.5-5.1); PROTEIN TOTAL,TP 8.6 g/dL (6.4-8.2); SODIUM,NA 143 mmol/L (136-145)
[2022-09-01 00:48] VITALS: BP 135/94; PULSE 162
[2022-09-01 00:49] LABS: ESTIMATED GFR 96 mL/min (>=60)
[2022-09-01 00:52] LABS: AMPHETAMINES,URINE POSITIVE (NEGATIVE); BARBITURATES,URINE NEGATIVE (NEGATIVE); BENZODIAZEPINE,URINE NEGATIVE (NEGATIVE); MDMA (ECSTASY), URINE NEGATIVE (NEGATIVE); METHADONE,URINE NEGATIVE (NEGATIVE); METHAMPHETAMINES,URINE POSITIVE (NEGATIVE); OPIATES,URINE NEGATIVE (NEGATIVE); OXYCODONE,URINE NEGATIVE (NEGATIVE); PHENCYCLIDINE,URINE NEGATIVE (NEGATIVE); TCA,URINE NEGATIVE (NEGATIVE)
== END 2022-09-01 04:00 | disposition home or self-care (01) ==
LOC: DL.ED 00:06
DX: T40.411A Poisoning by fentanyl or fentanyl analogs, accidental (unintentional), initial encounter (principal); R09.2 Respiratory arrest; F10.920 Alcohol use, unspecified with intoxication, uncomplicated
CPT/HCPCS: 36415; 80053; 80305; 80307; 83735; 85025; 93005; 93010; 99285; J7120; J3490

== ENCOUNTER 2023-06-30 17:53 | Emergency (ER) | payer OTHER ==
[2023-06-30 18:11] LABS: BASOPHILS PERCENT AUTO 0.7 % (0.0-1.0); EOSINOPHILS PERCENT AUTO 0.7 % (1.0-3.0); HEMATOCRIT 42.3 % (40.0-54.0); HEMOGLOBIN 14.7 g/dL (14.0-18.0); LYMPHOCYTES PERCENT AUTO 19.4 % (20.5-50.1); MEAN CORPUSCULAR HEMOGLOBIN 32.2 pg (27.0-34.0); MEAN CORPUSCULAR HGB CONC 34.8 g/dL (33.0-35.0); MEAN CORPUSCULAR VOLUME 92.8 fL (80-100); MONOCYTES PERCENT AUTO 9.4 % (2-8); NEUTROPHILS PERCENT AUTO 69.8 % (42.2-75.2); PLATELET COUNT,PLT 319 10^3/uL (150-450); RED BLOOD CELL COUNT 4.56 10^6/uL (4.6-6.2)
[2023-06-30 18:30] LABS: A/G RATIO 0.9; ALBUMIN 3.7 g/dL (3.4-5.0); ANION GAP 19.9 mEq/L (7-13); BILIRUBIN TOTAL 0.5 mg/dL (0.2-1.0); CALCIUM 8.3 mg/dL (8.5-10.1); EST CRCL DRUG DOSING (CG) 102.6 mL/min; POTASSIUM,K 2.9 mmol/L (3.5-5.1)
[2023-06-30] MEDS: LORazepam 1 MG Tab PO ONE (19:06)
[2023-06-30 19:16] VITALS: BP 114/72; PULSE 114
== END 2023-06-30 19:09 | disposition home or self-care (01) ==
LOC: MERGE 17:53 → DL.ED 17:53
DX: T40.411A Poisoning by fentanyl or fentanyl analogs, accidental (unintentional), initial encounter (principal); F10.10 Alcohol abuse, uncomplicated; R94.5 Abnormal results of liver function studies; Y90.9 Presence of alcohol in blood, level not specified
CPT/HCPCS: 36415; 71045; 80053; 80307; 84484; 85025; 93005; 93010; 99285; A9270

== ENCOUNTER 2023-12-05 06:20 | Emergency (ER) | payer MEDICAID ==
[2023-12-05 07:04] VITALS: BP 150/109; PULSE 95
[2023-12-05 07:28] LABS: HEMATOCRIT 40.8 % (40.0-54.0); HEMOGLOBIN 13.5 g/dL (14.0-18.0); MEAN CORPUSCULAR HEMOGLOBIN 32.5 pg (27.0-34.0); MEAN CORPUSCULAR HGB CONC 33.1 g/dL (33.0-35.0); MEAN CORPUSCULAR VOLUME 98.1 fL (80-100); PLATELET COUNT,PLT 326 10^3/uL (150-450); RED BLOOD CELL COUNT 4.16 10^6/uL (4.6-6.2); WHITE BLOOD CELL COUNT,WBC 7.8 10^3/uL (5.0-10.0)
[2023-12-05] MEDS: Sodium Chloride 0.9% 10 ML Syringe FLUSH PRN (07:31)
[2023-12-05 07:40] LABS: AMPHETAMINES,URINE NEGATIVE (NEGATIVE); BARBITURATES,URINE NEGATIVE (NEGATIVE); BENZODIAZEPINE,URINE NEGATIVE (NEGATIVE); MDMA (ECSTASY), URINE NEGATIVE (NEGATIVE); METHADONE,URINE NEGATIVE (NEGATIVE); METHAMPHETAMINES,URINE NEGATIVE (NEGATIVE); OPIATES,URINE NEGATIVE (NEGATIVE); OXYCODONE,URINE POSITIVE (NEGATIVE); PHENCYCLIDINE,URINE NEGATIVE (NEGATIVE); TCA,URINE NEGATIVE (NEGATIVE)
[2023-12-05 07:41] LABS: BASOPHILS PERCENT AUTO 0.5 % (0.0-1.0); LYMPHOCYTES PERCENT AUTO 25.8 % (20.5-50.1); MONOCYTES PERCENT AUTO 13.5 % (2-8); NEUTROPHILS PERCENT AUTO 59.2 % (42.2-75.2)
[2023-12-05] MEDS: LORazepam 2 MG/ML SDV IVPUSH ONE (07:47)
[2023-12-05 07:48] LABS: INR 0.9 (0.9-1.2); PROTHROMBIN TIME 9.8 SEC (9.0-12.0)
[2023-12-05 07:50] LABS: A/G RATIO 0.9; ALANINE AMINOTRANSFERASE,ALT 166 U/L (16-63); ALBUMIN 3.6 g/dL (3.4-5.0); ALKALINE PHOSPHATASE 92 U/L (46-116); ANION GAP 11.9 mEq/L (7-13); ASPARTATE AMNIOTRANSFERASE,AST 112 U/L (15-37); BILIRUBIN TOTAL 0.2 mg/dL (0.2-1.0); BLOOD UREA NITROGEN,BUN 6 mg/dL (7-18); BUN/CREATININE RATIO 7.8 (No establ ref range); CALCIUM 8.6 mg/dL (8.5-10.1); CARBON DIOXIDE,CO2 26 mmol/L (21-32); CHLORIDE,CL 103 mmol/L (98-107); CREATININE 0.77 mg/dL (0.70-1.30); EST CRCL DRUG DOSING (CG) 133.25 mL/min; ESTIMATED GFR 122 mL/min (>=60); ETHANOL BLOOD MEDICAL 157 mg/dL (0); GLUCOSE RANDOM 102 mg/dL (70-99); LIPASE 38 U/L (16-77); MAGNESIUM 1.9 mg/dL (1.8-2.4); POTASSIUM,K 3.9 mmol/L (3.5-5.1); PROTEIN TOTAL,TP 7.4 g/dL (6.4-8.2); SODIUM,NA 137 mmol/L (136-145)
[2023-12-05 07:59] LABS: LYMPHOCYTES PERCENT MAN 23 % (20-50); MONOCYTES PERCENT MAN 12 % (2-8); SEG NEUTROPHILS PERCENT MAN 65 % (42-75)
[2023-12-05 08:00] LABS: B-TYPE NATRIURETIC PEPTIDE,BNP < 5 pg/ml (0-100)
[2023-12-05] MEDS: Lactated Ringers 1,000 ML IV SCH (08:00)
[2023-12-05 08:06] LABS: CORONAVIRUS COVID-19 NAA NEGATIVE (NEGATIVE); INFLUENZA A NAA NEGATIVE (NEGATIVE); INFLUENZA B NAA NEGATIVE (NEGATIVE)
[2023-12-05] MEDS: Thiamine 100 MG in Sodium Chloride 0.9% 100 ML IV ONE (08:20)
== END 2023-12-05 08:42 | disposition home or self-care (01) ==
LOC: DL.ED 06:20
DX: F41.9 Anxiety disorder, unspecified (principal); F43.21 Adjustment disorder with depressed mood; F11.10 Opioid abuse, uncomplicated; F10.120 Alcohol abuse with intoxication, uncomplicated
CPT/HCPCS: 0240U; 36415; 70450; 80053; 80305-QW; 80307; 83690; 83735; 83880; 84484; 85025; 85610; 93005; 93010; 96374; 96375; 99284; 99284-25; J2060; J3411; J3490; J7120

== ENCOUNTER 2023-12-12 03:30 | Emergency (ER) | payer MEDICAID ==
[2023-12-12 03:07] VITALS: BP 135/94; PULSE 71
[2023-12-12] MEDS: MVI, Adult with Vitamin K 10 ML, Folic Acid 1 MG, Thiamine 100 MG in Lactated Ringers 1... IV ONE (03:21)
[2023-12-12 03:30] LABS: BASOPHILS PERCENT AUTO 1.1 % (0.0-1.0); EOSINOPHILS PERCENT AUTO 0.6 % (1.0-3.0); HEMATOCRIT 39.2 % (40.0-54.0); HEMOGLOBIN 13.2 g/dL (14.0-18.0); LYMPHOCYTES PERCENT AUTO 26.7 % (20.5-50.1); MEAN CORPUSCULAR HEMOGLOBIN 32.8 pg (27.0-34.0); MEAN CORPUSCULAR HGB CONC 33.7 g/dL (33.0-35.0); MEAN CORPUSCULAR VOLUME 97.5 fL (80-100); MONOCYTES PERCENT AUTO 10.9 % (2-8); NEUTROPHILS PERCENT AUTO 60.7 % (42.2-75.2); PLATELET COUNT,PLT 257 10^3/uL (150-450); RED BLOOD CELL COUNT 4.02 10^6/uL (4.6-6.2); WHITE BLOOD CELL COUNT,WBC 6.5 10^3/uL (5.0-10.0)
[2023-12-12] MEDS ORDERED: Flumazenil 0.1 MG/ML 5 ML MDV IVPUSH PRN (03:38)
[2023-12-12] MEDS: Sodium Chloride 0.9% 10 ML Syringe FLUSH PRN (03:43)
[2023-12-12] MEDS: LORazepam 2 MG/ML SDV IVPUSH ONE (03:43)
[2023-12-12 03:54] LABS: PROTHROMBIN TIME 9.9 SEC (9.0-12.0); PTT,PARTIAL THROMBOPLSTIN TIME 23.9 SEC (22.0-34.0)
[2023-12-12 03:55] LABS: APPEARANCE,URINE CLEAR (CLEAR); BILIRUBIN,URINE NEGATIVE (NEGATIVE); COLOR,URINE YELLOW (YELLOW); GLUCOSE,URINE NEGATIVE (NEGATIVE); KETONES,URINE NEGATIVE (NEGATIVE); LEUKOCYTE ESTERASE,URINE NEGATIVE (NEGATIVE); NITRITE,URINE NEGATIVE (NEGATIVE); OCCULT BLOOD,URINE NEGATIVE (NEGATIVE); PROTEIN,URINE NEGATIVE (NEGATIVE); UROBILINOGEN,URINE 0.2 mg/dL (0.2-1.0)
[2023-12-12 03:59] LABS: AMPHETAMINES,URINE NEGATIVE (NEGATIVE); BARBITURATES,URINE NEGATIVE (NEGATIVE); BENZODIAZEPINE,URINE NEGATIVE (NEGATIVE); MDMA (ECSTASY), URINE NEGATIVE (NEGATIVE); METHADONE,URINE NEGATIVE (NEGATIVE); METHAMPHETAMINES,URINE NEGATIVE (NEGATIVE); OPIATES,URINE NEGATIVE (NEGATIVE); OXYCODONE,URINE NEGATIVE (NEGATIVE); PHENCYCLIDINE,URINE NEGATIVE (NEGATIVE); TCA,URINE NEGATIVE (NEGATIVE)
[2023-12-12 04:00] LABS: ALBUMIN 3.2 g/dL (3.4-5.0); ANION GAP 10.9 mEq/L (7-13); BILIRUBIN TOTAL 0.4 mg/dL (0.2-1.0); BUN/CREATININE RATIO 7.1 (No establ ref range); CALCIUM 8.2 mg/dL (8.5-10.1); CREATININE 0.84 mg/dL (0.70-1.30); EST CRCL DRUG DOSING (CG) 122.14 mL/min; POTASSIUM,K 3.9 mmol/L (3.5-5.1); PROTEIN TOTAL,TP 6.9 g/dL (6.4-8.2)
[2023-12-12 04:01] LABS: A/G RATIO 0.86
[2023-12-12] MEDS: Sodium Chloride 0.9% 2,000 ML IV ONE (04:15)
[2023-12-12] MEDS: chlordiazePOXIDE 25 MG Cap PO ONE (04:15)
== END 2023-12-12 06:09 | disposition left against medical advice (07) ==
LOC: DL.ED 03:30
DX: F41.9 Anxiety disorder, unspecified (principal); M62.82 Rhabdomyolysis; F10.239 Alcohol dependence with withdrawal, unspecified; R74.8 Abnormal levels of other serum enzymes; Z87.891 Personal history of nicotine dependence
CPT/HCPCS: 36415; 70450; 71045; 72125; 80053; 80305; 80307; 81003; 82550; 85025; 85610; 85730; 96361; 96365; 96366; 96375; 99284; A9270; J2060; J3411; J7030; J7120; J3490

== ENCOUNTER 2024-01-06 13:14 | Emergency (ER) | payer MEDICAID ==
[2024-01-06 13:33] VITALS: BP 143/93; PULSE 73
[2024-01-06 13:53] LABS: BASOPHILS PERCENT AUTO 1.1 % (0.0-1.0); EOSINOPHILS PERCENT AUTO 0.4 % (1.0-3.0); HEMATOCRIT 44.4 % (40.0-54.0); HEMOGLOBIN 15.3 g/dL (14.0-18.0); LYMPHOCYTES PERCENT AUTO 16.9 % (20.5-50.1); MEAN CORPUSCULAR HEMOGLOBIN 32.7 pg (27.0-34.0); MEAN CORPUSCULAR HGB CONC 34.5 g/dL (33.0-35.0); MEAN CORPUSCULAR VOLUME 94.9 fL (80-100); MONOCYTES PERCENT AUTO 13.5 % (2-8); NEUTROPHILS PERCENT AUTO 68.1 % (42.2-75.2); PLATELET COUNT,PLT 203 10^3/uL (150-450); RED BLOOD CELL COUNT 4.68 10^6/uL (4.6-6.2); WHITE BLOOD CELL COUNT,WBC 4.7 10^3/uL (5.0-10.0)
[2024-01-06] MEDS: chlordiazePOXIDE 25 MG Cap PO ONE (14:21)
[2024-01-06] MEDS: LORazepam 2 MG/ML SDV IVPUSH ONE (14:22)
[2024-01-06] MEDS: MVI, Adult with Vitamin K 10 ML, Folic Acid 1 MG, Thiamine 100 MG in Lactated Ringers 1... IV ONE (14:22)
[2024-01-06 14:23] LABS: A/G RATIO 0.9; ALBUMIN 4.2 g/dL (3.4-5.0); ANION GAP 15.7 mEq/L (7-13); BILIRUBIN TOTAL 0.5 mg/dL (0.2-1.0); BUN/CREATININE RATIO 7.1 (No establ ref range); CALCIUM 8.6 mg/dL (8.5-10.1); CREATININE 0.85 mg/dL (0.70-1.30); EST CRCL DRUG DOSING (CG) 120.71 mL/min; POTASSIUM,K 3.7 mmol/L (3.5-5.1); PROTEIN TOTAL,TP 8.8 g/dL (6.4-8.2)
[2024-01-06] MEDS: Sodium Chloride 0.9% 10 ML Syringe FLUSH PRN (14:27)
[2024-01-06] MEDS: Sodium Chloride 0.9% 1,000 ML IV ONE (14:56)
[2024-01-06 15:08] LABS: APPEARANCE,URINE CLEAR (CLEAR); BILIRUBIN,URINE NEGATIVE (NEGATIVE); COLOR,URINE DARK YELLOW (YELLOW); GLUCOSE,URINE NEGATIVE (NEGATIVE); KETONES,URINE NEGATIVE (NEGATIVE); LEUKOCYTE ESTERASE,URINE NEGATIVE (NEGATIVE); NITRITE,URINE NEGATIVE (NEGATIVE); OCCULT BLOOD,URINE NEGATIVE (NEGATIVE); PH,URINE 6.5 (5.0-9.0); PROTEIN,URINE 100 (NEGATIVE)
[2024-01-06 15:12] LABS: AMPHETAMINES,URINE NEGATIVE (NEGATIVE); BARBITURATES,URINE NEGATIVE (NEGATIVE); BENZODIAZEPINE,URINE POSITIVE (NEGATIVE); MDMA (ECSTASY), URINE NEGATIVE (NEGATIVE); METHADONE,URINE NEGATIVE (NEGATIVE); METHAMPHETAMINES,URINE NEGATIVE (NEGATIVE); OPIATES,URINE NEGATIVE (NEGATIVE); OXYCODONE,URINE NEGATIVE (NEGATIVE); PHENCYCLIDINE,URINE NEGATIVE (NEGATIVE); TCA,URINE NEGATIVE (NEGATIVE)
[2024-01-06 15:19] LABS: BACTERIA,URINE FEW /HPF (0-FEW/HPF); EPITHELIAL CELLS,URINE FEW /HPF (NOT SEEN); MUCUS,URINE MODERATE /LPF (NOT SEEN); RBC,URINE 0-5 /HPF (0-5); WBC,URINE 0-5 /HPF (0-5/HPF)
== END 2024-01-06 15:41 | disposition home or self-care (01) ==
LOC: DL.ED 13:14
DX: F10.930 Alcohol use, unspecified with withdrawal, uncomplicated (principal); R74.8 Abnormal levels of other serum enzymes; I10 Essential (primary) hypertension; F17.210 Nicotine dependence, cigarettes, uncomplicated; Z79.891 Long term (current) use of opiate analgesic
CPT/HCPCS: 36415; 80053; 80305; 80307; 81001; 82550; 85025; 96361; 96365; 96375; 99284; A9270; J2060; J3411; J7030; J7120; J3490

== ENCOUNTER 2024-01-28 06:49 | Inpatient (IN) | payer BC, MEDICAID ==
[2024-01-28] MEDS ORDERED: Sodium Chloride 0.9% 10 ML Syringe FLUSH PRN (07:18)
[2024-01-28] MEDS: chlordiazePOXIDE 25 MG Cap PO ONE ×2 (07:29→20:21)
[2024-01-28] MEDS: LORazepam 2 MG/ML SDV IVPUSH ONE ×2 (07:29→09:11)
[2024-01-28 07:32] LABS: BASOPHILS PERCENT AUTO 1.2 % (0.0-1.0); EOSINOPHILS PERCENT AUTO 0.2 % (1.0-3.0); HEMATOCRIT 45.3 % (40.0-54.0); HEMOGLOBIN 15.5 g/dL (14.0-18.0); LYMPHOCYTES PERCENT AUTO 20.4 % (20.5-50.1); MEAN CORPUSCULAR HEMOGLOBIN 32.8 pg (27.0-34.0); MEAN CORPUSCULAR HGB CONC 34.2 g/dL (33.0-35.0); MEAN CORPUSCULAR VOLUME 95.8 fL (80-100); NEUTROPHILS PERCENT AUTO 68.2 % (42.2-75.2); PLATELET COUNT,PLT 157 10^3/uL (150-450); RED BLOOD CELL COUNT 4.73 10^6/uL (4.6-6.2); WHITE BLOOD CELL COUNT,WBC 5.1 10^3/uL (5.0-10.0)
[2024-01-28] MEDS: MVI, Adult with Vitamin K 10 ML, Folic Acid 1 MG, Thiamine 100 MG in Lactated Ringers 1... IV ONE ×2 (07:35→20:22)
[2024-01-28 07:54] LABS: A/G RATIO 0.9; ALANINE AMINOTRANSFERASE,ALT 263 U/L (16-63); ALBUMIN 4.2 g/dL (3.4-5.0); ALKALINE PHOSPHATASE 193 U/L (46-116); ANION GAP 19.5 mEq/L (7-13); ASPARTATE AMNIOTRANSFERASE,AST 434 U/L (15-37); BILIRUBIN TOTAL 1.3 mg/dL (0.2-1.0); BLOOD UREA NITROGEN,BUN 6 mg/dL (7-18); BUN/CREATININE RATIO 6.3 (No establ ref range); CALCIUM 9.4 mg/dL (8.5-10.1); CARBON DIOXIDE,CO2 24 mmol/L (21-32); CHLORIDE,CL 98 mmol/L (98-107); CREATINE KINASE,CK 280 U/L (39-308); CREATININE 0.95 mg/dL (0.70-1.30); ESTIMATED GFR 109 mL/min (>=60); ETHANOL BLOOD MEDICAL 128 mg/dL (0); GLUCOSE RANDOM 140 mg/dL (70-99); LIPASE 48 U/L (16-77); MAGNESIUM 1.4 mg/dL (1.8-2.4); POTASSIUM,K 3.5 mmol/L (3.5-5.1); PROTEIN TOTAL,TP 8.7 g/dL (6.4-8.2); SODIUM,NA 138 mmol/L (136-145)
[2024-01-28 07:56] LABS: INR 1.1 (0.9-1.2); PROTHROMBIN TIME 11.2 SEC (9.0-12.0); PTT,PARTIAL THROMBOPLSTIN TIME 23.7 SEC (22.0-34.0)
[2024-01-28 08:09] LABS: LACTIC ACID 4.7 mmol/L (0.4-2.0)
[2024-01-28] MEDS: Magnesium Oxide 400 MG Tab PO ONE (08:18)
[2024-01-28] MEDS: Magnesium Sulfate/Water Premix 2 GM in Premix Bag 1 BAG IV ONE (08:19)
[2024-01-28 08:28] LABS: O2 DELIVERY DEVICE ROOM AIR
[2024-01-28 08:32] LABS: PCO2 VENOUS 44 mmHg (41-51); PH,VENOUS 7.37 (7.31-7.41)
[2024-01-28 08:33] LABS: BASE EXCESS VENOUS 0 mmol/l ((-2)-(+3)); BICARBONATE,VENOUS 25 mmol/l (19-25); O2 SATURATION VENOUS 82.8 % (60-80); PO2 VENOUS 51 mmHg (35-42)
[2024-01-28 08:34] LABS: APPEARANCE,URINE CLEAR (CLEAR); BILIRUBIN,URINE SMALL (NEGATIVE); COLOR,URINE AMBER (YELLOW); GLUCOSE,URINE 100 (NEGATIVE); KETONES,URINE 15 (NEGATIVE); LEUKOCYTE ESTERASE,URINE NEGATIVE (NEGATIVE); NITRITE,URINE NEGATIVE (NEGATIVE); OCCULT BLOOD,URINE NEGATIVE (NEGATIVE); PROTEIN,URINE >=300 (NEGATIVE); UROBILINOGEN,URINE >=8.0 mg/dL (0.2-1.0)
[2024-01-28] MEDS: Potassium Chloride 10 MEQ Tab.ER PO ONE (08:36)
[2024-01-28 08:38] LABS: AMPHETAMINES,URINE NEGATIVE (NEGATIVE); BARBITURATES,URINE NEGATIVE (NEGATIVE); BENZODIAZEPINE,URINE POSITIVE (NEGATIVE); MDMA (ECSTASY), URINE NEGATIVE (NEGATIVE); METHADONE,URINE NEGATIVE (NEGATIVE); METHAMPHETAMINES,URINE NEGATIVE (NEGATIVE); OPIATES,URINE NEGATIVE (NEGATIVE); OXYCODONE,URINE NEGATIVE (NEGATIVE); PHENCYCLIDINE,URINE NEGATIVE (NEGATIVE); TCA,URINE NEGATIVE (NEGATIVE)
[2024-01-28 08:45] LABS: RBC,URINE 0-5 /HPF (0-5); WBC,URINE 0-5 /HPF (0-5/HPF)
[2024-01-28 08:46] LABS: BACTERIA,URINE FEW /HPF (0-FEW/HPF); EPITHELIAL CELLS,URINE OCCASIONAL /HPF (NOT SEEN)
[2024-01-28 08:47] LABS: HYALINE CASTS,URINE RARE; MUCUS,URINE MANY /LPF (NOT SEEN)
[2024-01-28] MEDS ORDERED: Flumazenil 0.1 MG/ML 5 ML MDV IVPUSH PRN (09:03)
[2024-01-28] MEDS ORDERED: Acetaminophen 325 MG Tab PO PRN (10:57)
[2024-01-28] MEDS ORDERED: Albuterol/Ipratropium 3.0-0.5 MG/3 ML Neb Soln NEB PRN (10:57)
[2024-01-28] MEDS ORDERED: Ondansetron 4 MG/2 ML SDV IVPUSH PRN (10:57)
[2024-01-28] MEDS ORDERED: Docusate Sodium 100 MG Cap PO PRN (10:57)
[2024-01-28] MEDS ORDERED: oxyCODONE 5 MG Tab PO PRN (10:57)
[2024-01-28] MEDS ORDERED: LORazepam 2 MG/ML SDV IVPUSH PRN (10:57)
[2024-01-28] MEDS: Sodium Chloride 0.9% 1,000 ML IV SCH (11:22)
[2024-01-28] MEDS: Enoxaparin 40 MG/0.4 ML Syringe SUBCUT SCH (11:22)
[2024-01-28] MEDS: LORazepam 2 MG/ML SDV IVPUSH PRN (16:10)
[2024-01-28] MEDS: LORazepam 1 MG Tab PO PRN (23:03)
[2024-01-28] MEDS: hydrOXYzine HCl 25 MG Tab PO PRN (23:03)
[2024-01-29 06:31] LABS: BASOPHILS PERCENT AUTO 0.8 % (0.0-1.0); EOSINOPHILS PERCENT AUTO 1.4 % (1.0-3.0); HEMATOCRIT 42.5 % (40.0-54.0); HEMOGLOBIN 14.3 g/dL (14.0-18.0); LYMPHOCYTES PERCENT AUTO 19.4 % (20.5-50.1); MEAN CORPUSCULAR HEMOGLOBIN 32.7 pg (27.0-34.0); MEAN CORPUSCULAR HGB CONC 33.6 g/dL (33.0-35.0); MEAN CORPUSCULAR VOLUME 97.3 fL (80-100); MONOCYTES PERCENT AUTO 11.1 % (2-8); NEUTROPHILS PERCENT AUTO 67.3 % (42.2-75.2); PLATELET COUNT,PLT 129 10^3/uL (150-450); RED BLOOD CELL COUNT 4.37 10^6/uL (4.6-6.2); WHITE BLOOD CELL COUNT,WBC 5.1 10^3/uL (5.0-10.0)
[2024-01-29 06:55] LABS: A/G RATIO 0.9; ALBUMIN 3.5 g/dL (3.4-5.0); ANION GAP 11.9 mEq/L (7-13); BILIRUBIN TOTAL 2.1 mg/dL (0.2-1.0); BUN/CREATININE RATIO 5.2 (No establ ref range); CALCIUM 9.1 mg/dL (8.5-10.1); CREATININE 0.77 mg/dL (0.70-1.30); EST CRCL DRUG DOSING (CG) 133.25 mL/min; POTASSIUM,K 3.9 mmol/L (3.5-5.1); PROTEIN TOTAL,TP 7.3 g/dL (6.4-8.2)
[2024-01-29] MEDS: chlordiazePOXIDE 25 MG Cap PO ONE (14:34)
[2024-01-30 11:39] VITALS: BP 129/78; PULSE 84
== END 2024-01-30 13:33 | disposition home or self-care (01) | DRG 775 ==
LOC: DL.ED 06:49 → DL.MS 09:12
PROVIDERS: ADMIT Internal Medicine; ATTEND Internal Medicine
DX: F10.132 Alcohol abuse with withdrawal with perceptual disturbance (principal); I10 Essential (primary) hypertension; H54.7 Unspecified visual loss; F41.9 Anxiety disorder, unspecified; R79.89 Other specified abnormal findings of blood chemistry; Z87.891 Personal history of nicotine dependence; Z79.899 Other long term (current) drug therapy
CPT/HCPCS: 36415; 70450; 72125; 80053; 80305-QW; 80307; 81001; 82009; 82550; 82803; 83605; 83690; 83735; 84484; 85025; 85610; 85730; 93010; 96365; 96367; 96375; 96376; 99223; 99232; 99239; 99284; 99285-25; A9270-GY; J1650; J2060; J3411; J3475; J3490; J7030; J7120

== ENCOUNTER 2024-02-19 22:48 | Emergency (ER) | payer BC, MEDICAID ==
[2024-02-19] MEDS: LORazepam 2 MG/ML SDV IVPUSH ONE (23:18)
[2024-02-19] MEDS: Ondansetron 4 MG/2 ML SDV IVPUSH ONE (23:18)
[2024-02-19 23:25] LABS: BASOPHILS PERCENT AUTO 0.3 % (0.0-1.0); HEMATOCRIT 47.6 % (40.0-54.0); HEMOGLOBIN 16.1 g/dL (14.0-18.0); LYMPHOCYTES PERCENT AUTO 5.4 % (20.5-50.1); MEAN CORPUSCULAR HEMOGLOBIN 32.3 pg (27.0-34.0); MEAN CORPUSCULAR HGB CONC 33.8 g/dL (33.0-35.0); MEAN CORPUSCULAR VOLUME 95.6 fL (80-100); MONOCYTES PERCENT AUTO 6.7 % (2-8); NEUTROPHILS PERCENT AUTO 87.6 % (42.2-75.2); PLATELET COUNT,PLT 176 10^3/uL (150-450); RED BLOOD CELL COUNT 4.98 10^6/uL (4.6-6.2); WHITE BLOOD CELL COUNT,WBC 7.6 10^3/uL (5.0-10.0)
[2024-02-19 23:43] LABS: INR 1.1 (0.9-1.2); PROTHROMBIN TIME 11.4 SEC (9.0-12.0)
[2024-02-19] MEDS ORDERED: Lactated Ringers 1,000 ML IV SCH (23:45)
[2024-02-19 23:48] LABS: A/G RATIO 0.9; ALBUMIN 4.6 g/dL (3.4-5.0); ANION GAP 19.8 mEq/L (7-13); BILIRUBIN TOTAL 1.2 mg/dL (0.2-1.0); BUN/CREATININE RATIO 10.5 (No establ ref range); CALCIUM 9.4 mg/dL (8.5-10.1); CREATININE 1.05 mg/dL (0.70-1.30); EST CRCL DRUG DOSING (CG) 87.31 mL/min; MAGNESIUM 1.6 mg/dL (1.8-2.4); POTASSIUM,K 3.8 mmol/L (3.5-5.1); PROTEIN TOTAL,TP 9.7 g/dL (6.4-8.2)
[2024-02-19] MEDS: Sodium Chloride 0.9% 1,000 ML IV ONE (23:52)
[2024-02-19] MEDS: Pantoprazole 40 MG Vial IVPUSH ONE (23:54)
[2024-02-20] MEDS: Magnesium Sulfate/Water Premix 2 GM in Premix Bag 1 BAG IV ONE (00:02)
[2024-02-20] MEDS: Sodium Chloride 0.9% 1,000 ML IV ONE (01:00)
[2024-02-20] MEDS: Thiamine 100 MG in Sodium Chloride 0.9% 100 ML IV ONE (01:23)
[2024-02-20 03:20] LABS: HEMATOCRIT 39.3 % (40.0-54.0)
[2024-02-20 03:45] VITALS: PULSE 93
[2024-02-20] MEDS ORDERED: Ondansetron 4 MG/2 ML SDV ONE (04:39)
[2024-02-20] MEDS: Ondansetron 4 MG/2 ML SDV IVPUSH ONE (04:47)
[2024-02-20] MEDS: LORazepam 2 MG/ML SDV IVPUSH PRN (04:47)
[2024-02-20] MEDS: Sodium Chloride 0.9% 10 ML Syringe FLUSH PRN (04:50)
[2024-02-20] MEDS: LORazepam 2 MG/ML SDV IV PRN (05:09)
[2024-02-20 05:14] LABS: AMPHETAMINES,URINE NEGATIVE (NEGATIVE); BARBITURATES,URINE NEGATIVE (NEGATIVE); BENZODIAZEPINE,URINE POSITIVE (NEGATIVE); MDMA (ECSTASY), URINE NEGATIVE (NEGATIVE); METHADONE,URINE NEGATIVE (NEGATIVE); METHAMPHETAMINES,URINE NEGATIVE (NEGATIVE); OPIATES,URINE NEGATIVE (NEGATIVE); OXYCODONE,URINE NEGATIVE (NEGATIVE); PHENCYCLIDINE,URINE NEGATIVE (NEGATIVE); TCA,URINE NEGATIVE (NEGATIVE)
[2024-02-20] MEDS: PHENobarbitaL sodium 130 MG in Sodium Chloride 0.9% 100 ML IV ONE (05:45)
[2024-02-20] MEDS: Lactated Ringers 1,000 ML IV SCH (05:53)
[2024-02-20 06:18] VITALS: BP 143/87
== END 2024-02-20 06:05 ==
LOC: DL.ED 22:48
DX: F10.939 Alcohol use, unspecified with withdrawal, unspecified (principal); F10.920 Alcohol use, unspecified with intoxication, uncomplicated; K92.2 Gastrointestinal hemorrhage, unspecified; R94.5 Abnormal results of liver function studies; I10 Essential (primary) hypertension; Z86.59 Personal history of other mental and behavioral disorders; Z79.899 Other long term (current) drug therapy; Y90.9 Presence of alcohol in blood, level not specified
CPT/HCPCS: 36415; 80053; 80305-QW; 80307; 82271; 83690; 83735; 85014; 85018; 85025; 85610; 86850; 86900; 86901; 96365; 96366; 96367; 96368; 96375; 96376; 99285; 99285-25; J2060; J2405; J2470; J2560; J3411; J3475; J3490; J7030; J7120

== ENCOUNTER 2024-02-25 03:27 | Emergency (ER) | payer BC ==
[~2024-02-25 03:27] MED LIST: Sodium Chloride 0.9% 10 ML Syringe FLUSH PRN
[2024-02-25 03:53] LABS: HEMATOCRIT 39.8 % (40.0-54.0); HEMOGLOBIN 13.8 g/dL (14.0-18.0); MEAN CORPUSCULAR HEMOGLOBIN 32.9 pg (27.0-34.0); MEAN CORPUSCULAR HGB CONC 34.7 g/dL (33.0-35.0); PLATELET COUNT,PLT 193 10^3/uL (150-450); RED BLOOD CELL COUNT 4.19 10^6/uL (4.6-6.2)
[2024-02-25 03:54] LABS: BASOPHILS PERCENT AUTO 0.6 % (0.0-1.0); EOSINOPHILS PERCENT AUTO 0.7 % (1.0-3.0); LYMPHOCYTES PERCENT AUTO 13.3 % (20.5-50.1); NEUTROPHILS PERCENT AUTO 73.4 % (42.2-75.2)
[2024-02-25 03:55] VITALS: BP 158/108
[2024-02-25 04:10] LABS: A/G RATIO 0.9; ALBUMIN 3.7 g/dL (3.4-5.0); ANION GAP 16.7 mEq/L (7-13); BILIRUBIN TOTAL 0.8 mg/dL (0.2-1.0); BUN/CREATININE RATIO 12.5 (No establ ref range); CREATININE 0.72 mg/dL (0.70-1.30); EST CRCL DRUG DOSING (CG) 127.33 mL/min; MAGNESIUM 1.7 mg/dL (1.8-2.4); POTASSIUM,K 3.7 mmol/L (3.5-5.1); PROTEIN TOTAL,TP 7.9 g/dL (6.4-8.2)
[2024-02-25 04:17] LABS: EOSINOPHILS PERCENT MAN 1 % (1-3); LYMPHOCYTES PERCENT MAN 18 % (20-50); MONOCYTES PERCENT MAN 12 % (2-8); SEG NEUTROPHILS PERCENT MAN 69 % (42-75)
[2024-02-25] MEDS: Ondansetron 4 MG/2 ML SDV IVPUSH ONE (04:20)
[2024-02-25] MEDS: MVI, Adult with Vitamin K 10 ML, Folic Acid 1 MG, Thiamine 100 MG in Lactated Ringers 1... IV ONE (04:21)
[2024-02-25 04:22] LABS: APPEARANCE,URINE CLEAR (CLEAR); BILIRUBIN,URINE NEGATIVE (NEGATIVE); COLOR,URINE YELLOW (YELLOW); GLUCOSE,URINE NEGATIVE (NEGATIVE); KETONES,URINE NEGATIVE (NEGATIVE); LEUKOCYTE ESTERASE,URINE NEGATIVE (NEGATIVE); NITRITE,URINE NEGATIVE (NEGATIVE); OCCULT BLOOD,URINE NEGATIVE (NEGATIVE); PROTEIN,URINE 30 (NEGATIVE)
[2024-02-25 04:26] LABS: AMPHETAMINES,URINE NEGATIVE (NEGATIVE); BARBITURATES,URINE POSITIVE (NEGATIVE); BENZODIAZEPINE,URINE POSITIVE (NEGATIVE); MDMA (ECSTASY), URINE NEGATIVE (NEGATIVE); METHADONE,URINE NEGATIVE (NEGATIVE); METHAMPHETAMINES,URINE NEGATIVE (NEGATIVE); OPIATES,URINE NEGATIVE (NEGATIVE); OXYCODONE,URINE NEGATIVE (NEGATIVE); PHENCYCLIDINE,URINE NEGATIVE (NEGATIVE); TCA,URINE NEGATIVE (NEGATIVE)
[2024-02-25 04:32] LABS: BACTERIA,URINE FEW /HPF (0-FEW/HPF); EPITHELIAL CELLS,URINE FEW /HPF (NOT SEEN); MUCUS,URINE MODERATE /LPF (NOT SEEN); RBC,URINE 0-5 /HPF (0-5); WBC,URINE 0-5 /HPF (0-5/HPF)
[2024-02-25 04:43] VITALS: PULSE 60
[2024-02-25] MEDS: Magnesium Sulfate/Water Premix 2 GM in Premix Bag 1 BAG IV ONE (05:06)
== END 2024-02-25 07:10 | disposition home or self-care (01) ==
LOC: DL.ED 03:27
DX: F41.9 Anxiety disorder, unspecified (principal); R20.0 Anesthesia of skin; F10.10 Alcohol abuse, uncomplicated; E83.42 Hypomagnesemia; I10 Essential (primary) hypertension; Z87.891 Personal history of nicotine dependence; Z79.899 Other long term (current) drug therapy
CPT/HCPCS: 36415; 80053; 80305-QW; 80307; 81001; 83735; 85025; 93005; 96365; 96367; 96375; 99284-25; J2405; J3411; J3475; J3490; J7120

== ENCOUNTER 2024-03-09 08:20 | Observation (INO) | payer BC, MEDICAID ==
[2024-03-09] MEDS ORDERED: Flumazenil 0.1 MG/ML 5 ML MDV IVPUSH PRN ×2 (08:37→17:55)
[2024-03-09] MEDS: LORazepam 2 MG/ML SDV IVPUSH ONE ×2 (08:48→11:45)
[2024-03-09] MEDS: chlordiazePOXIDE 25 MG Cap PO ONE (08:48)
[2024-03-09 08:54] LABS: HEMATOCRIT 45.6 % (40.0-54.0); HEMOGLOBIN 15.7 g/dL (14.0-18.0); MEAN CORPUSCULAR HEMOGLOBIN 32.7 pg (27.0-34.0); MEAN CORPUSCULAR HGB CONC 34.4 g/dL (33.0-35.0); PLATELET COUNT,PLT 408 10^3/uL (150-450); WHITE BLOOD CELL COUNT,WBC 10.6 10^3/uL (5.0-10.0)
[2024-03-09 08:56] LABS: BASOPHILS PERCENT AUTO 0.9 % (0.0-1.0); EOSINOPHILS PERCENT AUTO 0.1 % (1.0-3.0); LYMPHOCYTES PERCENT AUTO 13.2 % (20.5-50.1); MONOCYTES PERCENT AUTO 6.5 % (2-8); NEUTROPHILS PERCENT AUTO 79.3 % (42.2-75.2)
[2024-03-09] MEDS: MVI, Adult with Vitamin K 10 ML, Folic Acid 1 MG, Thiamine 100 MG in Lactated Ringers 1... IV ONE (09:06)
[2024-03-09 09:08] LABS: INR 1.1 (0.9-1.2); PROTHROMBIN TIME 11.7 SEC (9.0-12.0); PTT,PARTIAL THROMBOPLSTIN TIME 27.5 SEC (22.0-34.0)
[2024-03-09 09:10] LABS: A/G RATIO 0.9; ALANINE AMINOTRANSFERASE,ALT 188 U/L (16-63); ALBUMIN 4.2 g/dL (3.4-5.0); ALKALINE PHOSPHATASE 200 U/L (46-116); ASPARTATE AMNIOTRANSFERASE,AST 254 U/L (15-37); BILIRUBIN TOTAL 0.8 mg/dL (0.2-1.0); BLOOD UREA NITROGEN,BUN 8 mg/dL (7-18); CARBON DIOXIDE,CO2 24 mmol/L (21-32); CHLORIDE,CL 101 mmol/L (98-107); ETHANOL BLOOD MEDICAL 181 mg/dL (0); GLUCOSE RANDOM 111 mg/dL (70-99); MAGNESIUM 1.8 mg/dL (1.8-2.4); PROTEIN TOTAL,TP 8.9 g/dL (6.4-8.2); SODIUM,NA 143 mmol/L (136-145)
[2024-03-09 09:13] LABS: ESTIMATED GFR 102 mL/min (>=60)
[2024-03-09 09:21] LABS: BAND PERCENT MAN 3 %; LYMPHOCYTES PERCENT MAN 16 % (20-50); MONOCYTES PERCENT MAN 2 % (2-8); SEG NEUTROPHILS PERCENT MAN 79 % (42-75)
[2024-03-09] MEDS: Sodium Chloride 0.9% 1,000 ML IV ONE (11:45)
[2024-03-09] MEDS: Sodium Chloride 0.9% 10 ML Syringe FLUSH PRN (11:52)
[2024-03-09] MEDS ORDERED: Acetaminophen 325 MG Tab PO PRN (12:56)
[2024-03-09] MEDS ORDERED: oxyCODONE 5 MG Tab PO PRN (12:56)
[2024-03-09] MEDS: Sodium Chloride 0.9% 1,000 ML IV SCH (13:20)
[2024-03-09] MEDS: Ondansetron 4 MG/2 ML SDV IVPUSH PRN (17:06)
[2024-03-09] MEDS: LORazepam 2 MG/ML SDV IVPUSH PRN (17:09)
[2024-03-09] MEDS: hydrOXYzine HCl 25 MG Tab PO PRN (17:10)
[2024-03-09] MEDS: Folic Acid 1 MG Tab PO SCH (17:13)
[2024-03-09] MEDS: LORazepam 1 MG Tab PO SCH (19:23)
[2024-03-09] MEDS: LORazepam 2 MG/ML SDV IV SCH (19:23)
[2024-03-09] MEDS: chlordiazePOXIDE 25 MG Cap PO SCH ×2 (19:36)
[2024-03-10 06:19] LABS: BASOPHILS PERCENT AUTO 0.9 % (0.0-1.0); EOSINOPHILS PERCENT AUTO 1.2 % (1.0-3.0); HEMATOCRIT 40.5 % (40.0-54.0); HEMOGLOBIN 13.4 g/dL (14.0-18.0); LYMPHOCYTES PERCENT AUTO 19.3 % (20.5-50.1); MEAN CORPUSCULAR HGB CONC 33.1 g/dL (33.0-35.0); MEAN CORPUSCULAR VOLUME 99.8 fL (80-100); MONOCYTES PERCENT AUTO 7.2 % (2-8); NEUTROPHILS PERCENT AUTO 71.4 % (42.2-75.2); PLATELET COUNT,PLT 274 10^3/uL (150-450); RED BLOOD CELL COUNT 4.06 10^6/uL (4.6-6.2); WHITE BLOOD CELL COUNT,WBC 7.6 10^3/uL (5.0-10.0)
[2024-03-10 06:33] LABS: ANION GAP 13.4 mEq/L (7-13); BILIRUBIN TOTAL 1.4 mg/dL (0.2-1.0); BUN/CREATININE RATIO 9.7 (No establ ref range); CALCIUM 8.6 mg/dL (8.5-10.1); CREATININE 0.72 mg/dL (0.70-1.30); EST CRCL DRUG DOSING (CG) 140.44 mL/min; POTASSIUM,K 4.4 mmol/L (3.5-5.1)
[2024-03-10 06:34] LABS: A/G RATIO 0.75
[2024-03-10] MEDS: Cyanocobalamin (Vitamin B12) 1,000 MCG Tab PO SCH (09:12)
[2024-03-10] MEDS: Thiamine 100 MG Tab PO SCH (09:12)
[2024-03-10] MEDS: Enoxaparin 40 MG/0.4 ML Syringe SUBCUT SCH (09:14)
[2024-03-10 11:38] VITALS: BP 143/86; PULSE 52
== END 2024-03-10 11:15 | disposition home or self-care (01) ==
LOC: DL.ED 08:20 → DL.MS 11:39 → DL.ED 11:50
PROVIDERS: ADMIT Internal Medicine; ATTEND Internal Medicine
DX: F10.239 Alcohol dependence with withdrawal, unspecified (principal); F10.229 Alcohol dependence with intoxication, unspecified; I10 Essential (primary) hypertension; F17.210 Nicotine dependence, cigarettes, uncomplicated; Z79.899 Other long term (current) drug therapy
CPT/HCPCS: 36415; 70450; 72125; 80053; 80307; 83735; 85025; 85610; 85730; A9270; J2060; J2405; J3411; J7030; J7120; 99222; 99239; 99284; J3490

== ENCOUNTER 2024-06-29 06:58 | Emergency (ER) | payer BC, MEDICAID ==
[2024-06-29] MEDS: Ondansetron 4 MG/2 ML SDV IVPUSH ONE (07:26)
[2024-06-29] MEDS: LORazepam 2 MG/ML SDV IVPUSH ONE (07:26)
[2024-06-29] MEDS: Sodium Chloride 0.9% 1,000 ML IV SCH (07:28)
[2024-06-29 07:35] LABS: BASOPHILS PERCENT AUTO 0.3 % (0.0-1.0); HEMATOCRIT 45.8 % (40.0-54.0); HEMOGLOBIN 16.1 g/dL (14.0-18.0); LYMPHOCYTES PERCENT AUTO 6.4 % (20.5-50.1); MEAN CORPUSCULAR HEMOGLOBIN 32.1 pg (27.0-34.0); MEAN CORPUSCULAR HGB CONC 35.2 g/dL (33.0-35.0); MEAN CORPUSCULAR VOLUME 91.4 fL (80-100); NEUTROPHILS PERCENT AUTO 81.3 % (42.2-75.2); PLATELET COUNT,PLT 134 10^3/uL (150-450); RED BLOOD CELL COUNT 5.01 10^6/uL (4.6-6.2)
[2024-06-29 08:01] LABS: ALBUMIN 4.7 g/dL (3.4-5.0); ANION GAP 22.4 mEq/L (7-13); BILIRUBIN DIRECT 0.3 mg/dL (0.0-0.2); BILIRUBIN INDIRECT 0.5; BILIRUBIN TOTAL 0.8 mg/dL (0.2-1.0); CALCIUM 9.7 mg/dL (8.5-10.1); CREATININE 1.2 mg/dL (0.70-1.30); EST CRCL DRUG DOSING (CG) 81.86 mL/min; POTASSIUM,K 3.4 mmol/L (3.5-5.1); PROTEIN TOTAL,TP 9.6 g/dL (6.4-8.2)
[2024-06-29 10:08] VITALS: BP 153/81; PULSE 125
== END 2024-06-29 10:05 | disposition home or self-care (01) ==
LOC: DL.ED 06:58
DX: F10.139 Alcohol abuse with withdrawal, unspecified (principal); I10 Essential (primary) hypertension; Z79.899 Other long term (current) drug therapy; Z72.0 Tobacco use
CPT/HCPCS: 36415; 80048; 80076; 82150; 83690; 85025; 96361; 96374; 96375; 99284; 99284-25; J2060; J2405; J7030

== ENCOUNTER 2024-06-30 07:06 | Emergency (ER) | payer MEDICAID ==
[2024-06-30] MEDS: Sodium Chloride 0.9% 1,000 ML IV SCH (07:25)
[2024-06-30 07:26] LABS: BASOPHILS PERCENT AUTO 0.3 % (0.0-1.0); EOSINOPHILS PERCENT AUTO 0.2 % (1.0-3.0); HEMATOCRIT 40.9 % (40.0-54.0); HEMOGLOBIN 14.2 g/dL (14.0-18.0); LYMPHOCYTES PERCENT AUTO 6.7 % (20.5-50.1); MEAN CORPUSCULAR HEMOGLOBIN 32.3 pg (27.0-34.0); MEAN CORPUSCULAR HGB CONC 34.7 g/dL (33.0-35.0); MEAN CORPUSCULAR VOLUME 93.2 fL (80-100); MONOCYTES PERCENT AUTO 9.3 % (2-8); NEUTROPHILS PERCENT AUTO 83.5 % (42.2-75.2); PLATELET COUNT,PLT 122 10^3/uL (150-450); RED BLOOD CELL COUNT 4.39 10^6/uL (4.6-6.2); WHITE BLOOD CELL COUNT,WBC 10.7 10^3/uL (5.0-10.0)
[2024-06-30 07:46] LABS: ALANINE AMINOTRANSFERASE,ALT 169 U/L (16-63); ALKALINE PHOSPHATASE 115 U/L (46-116); ANION GAP 15.2 mEq/L (7-13); ASPARTATE AMNIOTRANSFERASE,AST 204 U/L (15-37); BILIRUBIN TOTAL 0.8 mg/dL (0.2-1.0); BLOOD UREA NITROGEN,BUN 7 mg/dL (7-18); BUN/CREATININE RATIO 7.8 (No establ ref range); CALCIUM 8.7 mg/dL (8.5-10.1); CARBON DIOXIDE,CO2 28 mmol/L (21-32); CHLORIDE,CL 98 mmol/L (98-107); EST CRCL DRUG DOSING (CG) 109.15 mL/min; GLUCOSE RANDOM 117 mg/dL (70-99); POTASSIUM,K 3.2 mmol/L (3.5-5.1); PROTEIN TOTAL,TP 8.1 g/dL (6.4-8.2); SODIUM,NA 138 mmol/L (136-145)
[2024-06-30 07:47] LABS: ESTIMATED GFR 116 mL/min (>=60); ETHANOL BLOOD MEDICAL < 3 mg/dL (0)
[2024-06-30 09:05] VITALS: BP 131/85; PULSE 89
== END 2024-06-30 09:53 | disposition home or self-care (01) ==
LOC: DL.ED 07:06
DX: F10.230 Alcohol dependence with withdrawal, uncomplicated (principal); I10 Essential (primary) hypertension; Z79.899 Other long term (current) drug therapy
CPT/HCPCS: 36415; 80053; 80307; 85025; 96360; 99283; 99285-25; J7030

== ENCOUNTER 2024-11-05 07:01 | Emergency (ER) | payer BC, MEDICAID, OTHER ==
[2024-11-05] MEDS: Ondansetron 4 MG/2 ML SDV IVPUSH ONE (07:22)
[2024-11-05 07:23] LABS: BASOPHILS PERCENT AUTO 0.7 % (0.0-1.0); EOSINOPHILS PERCENT AUTO 0.1 % (1.0-3.0); LYMPHOCYTES PERCENT AUTO 8.3 % (20.5-50.1); MONOCYTES PERCENT AUTO 7.7 % (2-8); NEUTROPHILS PERCENT AUTO 83.2 % (42.2-75.2); PLATELET COUNT,PLT 234 10^3/uL (150-450); RED BLOOD CELL COUNT 4.46 10^6/uL (4.6-6.2); WHITE BLOOD CELL COUNT,WBC 7.5 10^3/uL (5.0-10.0)
[2024-11-05 07:42] LABS: A/G RATIO 1.1; ALANINE AMINOTRANSFERASE,ALT 320 U/L (16-63); ASPARTATE AMNIOTRANSFERASE,AST 356 U/L (15-37); BILIRUBIN TOTAL 0.7 mg/dL (0.2-1.0); BLOOD UREA NITROGEN,BUN 7 mg/dL (7-18); CARBON DIOXIDE,CO2 24 mmol/L (21-32); CHLORIDE,CL 104 mmol/L (98-107); CREATININE 1.01 mg/dL (0.70-1.30); GLUCOSE RANDOM 144 mg/dL (70-99); POTASSIUM,K 3.6 mmol/L (3.5-5.1); PROTEIN TOTAL,TP 8.0 g/dL (6.4-8.2); SODIUM,NA 143 mmol/L (136-145)
[2024-11-05 07:43] LABS: ESTIMATED GFR 101 mL/min (>=60)
[2024-11-05 13:58] VITALS: BP 118/77; PULSE 108
== END 2024-11-05 11:24 | disposition home or self-care (01) ==
LOC: DL.ED 07:01
DX: F10.139 Alcohol abuse with withdrawal, unspecified (principal); R94.5 Abnormal results of liver function studies; I10 Essential (primary) hypertension; Z79.899 Other long term (current) drug therapy; Y90.9 Presence of alcohol in blood, level not specified
CPT/HCPCS: 36415; 80053; 85025; 96361; 96374; 96375; 96376; 99284; 99285; J2405; J3360; J7030

== ENCOUNTER 2024-12-14 04:22 | Inpatient (IN) | payer MEDICAID ==
[2024-12-14] MEDS ORDERED: Sodium Chloride 0.9% 10 ML Syringe FLUSH PRN (04:30)
[2024-12-14 04:47] LABS: BASOPHILS PERCENT AUTO 0.7 % (0.0-1.0); EOSINOPHILS PERCENT AUTO 0.5 % (1.0-3.0); LYMPHOCYTES PERCENT AUTO 20.5 % (20.5-50.1); MONOCYTES PERCENT AUTO 12.6 % (2-8); NEUTROPHILS PERCENT AUTO 65.7 % (42.2-75.2); PLATELET COUNT,PLT 138 10^3/uL (150-450); RED BLOOD CELL COUNT 4.61 10^6/uL (4.6-6.2); WHITE BLOOD CELL COUNT,WBC 6.1 10^3/uL (5.0-10.0)
[2024-12-14] MEDS: Ondansetron 4 MG/2 ML SDV IVPUSH ONE (04:48)
[2024-12-14 05:15] LABS: A/G RATIO 0.9; ALANINE AMINOTRANSFERASE,ALT 160.0 U/L (16-63); ASPARTATE AMNIOTRANSFERASE,AST 255.0 U/L (15-37); BILIRUBIN TOTAL 0.4 mg/dL (0.2-1.0); BLOOD UREA NITROGEN,BUN 9.0 mg/dL (7-18); CARBON DIOXIDE,CO2 26.0 mmol/L (21-32); CHLORIDE,CL 98.0 mmol/L (98-107); CREATININE 0.77 mg/dL (0.70-1.30); EST CRCL DRUG DOSING (CG) 129.39 mL/min; ETHANOL BLOOD MEDICAL 159.0 mg/dL (0); GLUCOSE RANDOM 165.0 mg/dL (70-99); POTASSIUM,K 3.1 mmol/L (3.5-5.1); PROTEIN TOTAL,TP 8.6 g/dL (6.4-8.2); SODIUM,NA 137.0 mmol/L (136-145)
[2024-12-14 05:18] LABS: ESTIMATED GFR 121.0 mL/min (>=60)
[2024-12-14] MEDS: LORazepam 2 MG/ML SDV IVPUSH ONE (05:25)
[2024-12-14] MEDS: Magnesium Sulfate 2 GM/50 mL 2 GM in Premix Bag 1 BAG IV ONE (05:45)
[2024-12-14] MEDS: MVI, Adult with Vitamin K 10 ML, Folic Acid 1 MG, Thiamine 100 MG in Lactated Ringers 1... IV ONE (06:01)
[2024-12-14] MEDS: Potassium Chloride 10 MEQ Tab.ER PO ONE (06:01)
[2024-12-14] MEDS ORDERED: Sennosides/Docusate Sodium 50-8.6 MG Tab PO PRN (11:47)
[2024-12-14] MEDS ORDERED: Ondansetron 4 MG/2 ML SDV IVPUSH PRN (11:47)
[2024-12-14] MEDS ORDERED: Flumazenil 0.1 MG/ML 5 ML MDV IVPUSH PRN (11:56)
[2024-12-14 12:28] LABS: INR 1.1 (0.9-1.2); PTT,PARTIAL THROMBOPLSTIN TIME 25.0 SEC (22.0-34.0)
[2024-12-14 12:31] LABS: FOLIC ACID 3.8 ng/mL (8.6-58.9); PHOSPHORUS 3.1 mg/dL (2.6-4.7)
[2024-12-14 13:12] LABS: IRON,FE 81.0 ug/dL (65-175); PERCENT FE SATURATION 25.7 % (20.0-50.0)
[2024-12-14 17:30] LABS: AMPHETAMINES,URINE NEGATIVE (NEGATIVE); BARBITURATES,URINE NEGATIVE (NEGATIVE); MDMA (ECSTASY), URINE NEGATIVE (NEGATIVE); METHAMPHETAMINES,URINE NEGATIVE (NEGATIVE); OPIATES,URINE NEGATIVE (NEGATIVE); OXYCODONE,URINE NEGATIVE (NEGATIVE); PHENCYCLIDINE,URINE NEGATIVE (NEGATIVE); TCA,URINE NEGATIVE (NEGATIVE)
[2024-12-15 06:58] LABS: BASOPHILS PERCENT AUTO 0.5 % (0.0-1.0); EOSINOPHILS PERCENT AUTO 1.4 % (1.0-3.0); LYMPHOCYTES PERCENT AUTO 13.9 % (20.5-50.1); MONOCYTES PERCENT AUTO 10.7 % (2-8); NEUTROPHILS PERCENT AUTO 73.5 % (42.2-75.2); PLATELET COUNT,PLT 132 10^3/uL (150-450); RED BLOOD CELL COUNT 4.67 10^6/uL (4.6-6.2); WHITE BLOOD CELL COUNT,WBC 6.5 10^3/uL (5.0-10.0)
[2024-12-15 07:21] LABS: A/G RATIO 0.8; ALANINE AMINOTRANSFERASE,ALT 142 U/L (16-63); ASPARTATE AMNIOTRANSFERASE,AST 193 U/L (15-37); BILIRUBIN TOTAL 0.7 mg/dL (0.2-1.0); BLOOD UREA NITROGEN,BUN 6 mg/dL (7-18); CARBON DIOXIDE,CO2 29 mmol/L (21-32); CHLORIDE,CL 98 mmol/L (98-107); CREATININE 0.67 mg/dL (0.70-1.30); EST CRCL DRUG DOSING (CG) 140.75 mL/min; GLUCOSE RANDOM 96 mg/dL (70-99); POTASSIUM,K 3.3 mmol/L (3.5-5.1); PROTEIN TOTAL,TP 7.9 g/dL (6.4-8.2); SODIUM,NA 136 mmol/L (136-145)
[2024-12-15 07:29] LABS: ESTIMATED GFR 126 mL/min (>=60); ETHANOL BLOOD MEDICAL < 3 mg/dL (0)
[2024-12-15] MEDS: Potassium Chloride 10 MEQ Tab.ER PO SCH (08:59)
[2024-12-16 06:41] LABS: BASOPHILS PERCENT AUTO 0.5 % (0.0-1.0); EOSINOPHILS PERCENT AUTO 1.5 % (1.0-3.0); LYMPHOCYTES PERCENT AUTO 17.9 % (20.5-50.1); MONOCYTES PERCENT AUTO 12.4 % (2-8); NEUTROPHILS PERCENT AUTO 67.7 % (42.2-75.2); PLATELET COUNT,PLT 150 10^3/uL (150-450); RED BLOOD CELL COUNT 4.32 10^6/uL (4.6-6.2); WHITE BLOOD CELL COUNT,WBC 5.8 10^3/uL (5.0-10.0)
[2024-12-16 07:08] LABS: A/G RATIO 0.9; ALANINE AMINOTRANSFERASE,ALT 165.0 U/L (16-63); ASPARTATE AMNIOTRANSFERASE,AST 235.0 U/L (15-37); BILIRUBIN TOTAL 0.8 mg/dL (0.2-1.0); BLOOD UREA NITROGEN,BUN 8.0 mg/dL (7-18); CARBON DIOXIDE,CO2 29.0 mmol/L (21-32); CHLORIDE,CL 102.0 mmol/L (98-107); CREATININE 0.78 mg/dL (0.70-1.30); EST CRCL DRUG DOSING (CG) 120.9 mL/min; GLUCOSE RANDOM 105.0 mg/dL (70-99); POTASSIUM,K 3.8 mmol/L (3.5-5.1); PROTEIN TOTAL,TP 7.5 g/dL (6.4-8.2); SODIUM,NA 139.0 mmol/L (136-145)
[2024-12-16 07:30] LABS: ESTIMATED GFR 121.0 mL/min (>=60)
[2024-12-16 12:18] VITALS: PULSE 55
[2024-12-16 12:19] VITALS: BP 137/81
== END 2024-12-16 13:00 | disposition home or self-care (01) | DRG 897 ==
LOC: DL.ED 04:22 → DL.MS 10:41
PROVIDERS: ADMIT Student in an Organized Health Care Education/Training Program; ATTEND Internal Medicine
PROC: HZ2ZZZZ Detoxification Services for Substance Abuse Treatment (ICD-10-PCS; principal; 2024-12-14)
DX: F10.239 Alcohol dependence with withdrawal, unspecified (principal); H54.7 Unspecified visual loss; I10 Essential (primary) hypertension; F17.200 Nicotine dependence, unspecified, uncomplicated; E86.0 Dehydration; F41.9 Anxiety disorder, unspecified; E87.6 Hypokalemia; E83.42 Hypomagnesemia; D69.6 Thrombocytopenia, unspecified; F43.12 Post-traumatic stress disorder, chronic; Z79.899 Other long term (current) drug therapy
CPT/HCPCS: 36415; 80053; 80305-QW; 80307; 82607; 82728; 82746; 83540; 83550; 83735; 84100; 84132; 85025; 85610; 85730; 96365; 96368; 96375; 96376; 99222; 99232; 99239; 99285-25; A9270-GY; J1808; J2405; J2470; J2765; J3360; J3411; J3475; J3490; J7120

== ENCOUNTER 2024-12-27 21:00 | Emergency (ER) | payer MEDICAID ==
[2024-12-27 22:42] VITALS: BP 140/68; PULSE 101
== END 2024-12-27 21:40 | disposition home or self-care (01) ==
LOC: DL.ED 21:00
DX: F10.920 Alcohol use, unspecified with intoxication, uncomplicated (principal); I10 Essential (primary) hypertension; Z79.899 Other long term (current) drug therapy; Y90.9 Presence of alcohol in blood, level not specified
CPT/HCPCS: 96372; 99283; 99284; A9270; J1630

== ENCOUNTER 2024-12-28 06:35 | Inpatient (IN) | payer MEDICAID ==
[2024-12-28] MEDS ORDERED: Sodium Chloride 0.9% 10 ML Syringe FLUSH PRN (06:44)
[2024-12-28] MEDS: MVI, Adult with Vitamin K 10 ML, Folic Acid 1 MG, Thiamine 100 MG in Lactated Ringers 1... IV ONE (06:58)
[2024-12-28 06:59] LABS: BASOPHILS PERCENT AUTO 1.4 % (0.0-1.0); EOSINOPHILS PERCENT AUTO 1.1 % (1.0-3.0); LYMPHOCYTES PERCENT AUTO 18.8 % (20.5-50.1); MONOCYTES PERCENT AUTO 9.5 % (2-8); NEUTROPHILS PERCENT AUTO 69.2 % (42.2-75.2); PLATELET COUNT,PLT 342 10^3/uL (150-450); RED BLOOD CELL COUNT 4.34 10^6/uL (4.6-6.2); WHITE BLOOD CELL COUNT,WBC 6.4 10^3/uL (5.0-10.0)
[2024-12-28] MEDS: Ondansetron 4 MG/2 ML SDV IVPUSH ONE ×2 (07:02→10:16)
[2024-12-28 07:19] LABS: A/G RATIO 0.9; ALANINE AMINOTRANSFERASE,ALT 184 U/L (16-63); ASPARTATE AMNIOTRANSFERASE,AST 164 U/L (15-37); BILIRUBIN TOTAL 0.3 mg/dL (0.2-1.0); BLOOD UREA NITROGEN,BUN 7 mg/dL (7-18); CARBON DIOXIDE,CO2 25 mmol/L (21-32); CHLORIDE,CL 105 mmol/L (98-107); CREATININE 0.67 mg/dL (0.70-1.30); ETHANOL BLOOD MEDICAL 117 mg/dL (0); GLUCOSE RANDOM 133 mg/dL (70-99); POTASSIUM,K 3.5 mmol/L (3.5-5.1); PROTEIN TOTAL,TP 7.8 g/dL (6.4-8.2); SODIUM,NA 142 mmol/L (136-145)
[2024-12-28 07:20] LABS: ESTIMATED GFR 126 mL/min (>=60)
[2024-12-28] MEDS: Thiamine 100 MG in Sodium Chloride 0.9% 10 ML IV ONE (10:38)
[2024-12-28] MEDS ORDERED: Ondansetron 4 MG/2 ML SDV IVPUSH PRN (11:07)
[2024-12-28 11:30] LABS: IRON,FE 153.0 ug/dL (65-175); PERCENT FE SATURATION 39.8 % (20.0-50.0)
[2024-12-28 11:57] LABS: FOLIC ACID 6.2 ng/mL (8.6-58.9)
[2024-12-28 12:16] LABS: GAMMA GLUTAMYL TRANSFERASE,GGT 906.0 U/L (15-85)
[2024-12-28] MEDS: Lactated Ringers 1,000 ML IV ONE (12:35)
[2024-12-28] MEDS: Phosphorus #1 250 MG Tab PO SCH (14:01)
[2024-12-28] MEDS: Heparin Sodium 5,000 Units/ML Vial SUBCUT SCH (14:02)
[2024-12-28] MEDS: Potassium Chloride 10 MEQ Tab.ER PO SCH (17:41)
[2024-12-29 06:21] LABS: BASOPHILS PERCENT AUTO 1.2 % (0.0-1.0); EOSINOPHILS PERCENT AUTO 1.0 % (1.0-3.0); LYMPHOCYTES PERCENT AUTO 23.0 % (20.5-50.1); MONOCYTES PERCENT AUTO 11.7 % (2-8); NEUTROPHILS PERCENT AUTO 63.1 % (42.2-75.2); PLATELET COUNT,PLT 305 10^3/uL (150-450); RED BLOOD CELL COUNT 4.10 10^6/uL (4.6-6.2); WHITE BLOOD CELL COUNT,WBC 5.9 10^3/uL (5.0-10.0)
[2024-12-29 06:38] LABS: BLOOD UREA NITROGEN,BUN 6.0 mg/dL (7-18); CARBON DIOXIDE,CO2 24.0 mmol/L (21-32); CHLORIDE,CL 101.0 mmol/L (98-107); CREATININE 0.55 mg/dL (0.70-1.30); EST CRCL DRUG DOSING (CG) 184.82 mL/min; GLUCOSE RANDOM 74.0 mg/dL (70-99); PHOSPHORUS 2.7 mg/dL (2.6-4.7); POTASSIUM,K 3.5 mmol/L (3.5-5.1); SODIUM,NA 137.0 mmol/L (136-145)
[2024-12-29 06:41] LABS: ESTIMATED GFR 134.0 mL/min (>=60)
[2024-12-29] MEDS: Magnesium Sulfate 2 GM/50 mL 2 GM in Premix Bag 1 BAG IV ONE (08:20)
[2024-12-29 11:24] VITALS: BP 117/75; PULSE 78
[2024-12-31 05:46] LABS: AMPHETAMINES Negative; BARBITURATES Negative; BENZODIAZEPINES Presumptivepos ng/mL; BUPRENORPHINE Negative; CANNABINOIDS Negative; COCAINE METABOLITES Negative; METHADONE Negative; METHAMPHETAMINE Negative; OPIATES Negative; OXYCODONE Negative; PHENCYCLIDINE Negative
== END 2024-12-29 12:55 | disposition home or self-care (01) | DRG 897 ==
LOC: DL.ED 06:35 → DL.MS 10:08
PROVIDERS: ADMIT Internal Medicine; ATTEND Internal Medicine
PROC: HZ2ZZZZ Detoxification Services for Substance Abuse Treatment (ICD-10-PCS; principal; 2024-12-28)
DX: F10.239 Alcohol dependence with withdrawal, unspecified (principal); E87.20 Acidosis, unspecified; H54.7 Unspecified visual loss; I10 Essential (primary) hypertension; F41.9 Anxiety disorder, unspecified; E86.0 Dehydration; D69.6 Thrombocytopenia, unspecified; R74.01 Elevation of levels of liver transaminase levels; E80.6 Other disorders of bilirubin metabolism; Z79.899 Other long term (current) drug therapy
CPT/HCPCS: 36415; 80048; 80053; 80307; 82607; 82746; 82977; 83540; 83550; 83735; 84100; 85025; 96365; 96375; 99223; 99239; 99284; 99285-25; A9270-GY; J0612; J1644; J1808; J2405; J2470; J3360; J3411; J3475; J3490; J7030; J7120

== ENCOUNTER 2025-01-13 04:51 | Emergency (ER) | payer MEDICAID ==
[2025-01-13] MEDS ORDERED: Sodium Chloride 0.9% 10 ML Syringe FLUSH PRN (05:03)
[2025-01-13] MEDS ORDERED: Flumazenil 0.1 MG/ML 5 ML MDV IVPUSH PRN (05:04)
[2025-01-13] MEDS ORDERED: LORazepam 2 MG/ML SDV IVPUSH ONE (05:04)
[2025-01-13 05:13] LABS: BASOPHILS PERCENT AUTO 1.4 % (0.0-1.0); EOSINOPHILS PERCENT AUTO 1.2 % (1.0-3.0); LYMPHOCYTES PERCENT AUTO 27.4 % (20.5-50.1); MONOCYTES PERCENT AUTO 10.4 % (2-8); NEUTROPHILS PERCENT AUTO 59.6 % (42.2-75.2); PLATELET COUNT,PLT 267 10^3/uL (150-450); RED BLOOD CELL COUNT 4.18 10^6/uL (4.6-6.2); WHITE BLOOD CELL COUNT,WBC 6.5 10^3/uL (5.0-10.0)
[2025-01-13] MEDS: Ondansetron 4 MG/2 ML SDV IVPUSH ONE ×2 (05:31→06:32)
[2025-01-13 05:32] LABS: A/G RATIO 1.1; ALANINE AMINOTRANSFERASE,ALT 128.0 U/L (16-63); ASPARTATE AMNIOTRANSFERASE,AST 126.0 U/L (15-37); BILIRUBIN TOTAL 0.3 mg/dL (0.2-1.0); BLOOD UREA NITROGEN,BUN 10.0 mg/dL (7-18); CARBON DIOXIDE,CO2 27.0 mmol/L (21-32); CHLORIDE,CL 102.0 mmol/L (98-107); CREATININE 0.69 mg/dL (0.70-1.30); EST CRCL DRUG DOSING (CG) 157.23 mL/min; ESTIMATED GFR 125.0 mL/min (>=60); GLUCOSE RANDOM 121.0 mg/dL (70-99); POTASSIUM,K 4.1 mmol/L (3.5-5.1); PROTEIN TOTAL,TP 7.9 g/dL (6.4-8.2); SODIUM,NA 142.0 mmol/L (136-145)
[2025-01-13 06:52] VITALS: BP 145/73; PULSE 89
== END 2025-01-13 06:35 | disposition home or self-care (01) ==
LOC: DL.ED 04:51
DX: F10.230 Alcohol dependence with withdrawal, uncomplicated (principal); R74.01 Elevation of levels of liver transaminase levels; I10 Essential (primary) hypertension; Y90.4 Blood alcohol level of 80-99 mg/100 ml
CPT/HCPCS: 36415; 80053; 80307; 83690; 85025; 96361; 96374; 96375; 96376; 99284; J2405; J3360; J7050

== ENCOUNTER 2025-01-23 16:39 | Emergency (ER) | payer MEDICAID ==
[2025-01-23] MEDS ORDERED: Sodium Chloride 0.9% 10 ML Syringe FLUSH PRN (17:00)
[2025-01-23 17:07] LABS: BASOPHILS PERCENT AUTO 1.1 % (0.0-1.0); EOSINOPHILS PERCENT AUTO 0.5 % (1.0-3.0); LYMPHOCYTES PERCENT AUTO 26.8 % (20.5-50.1); MONOCYTES PERCENT AUTO 12.4 % (2-8); NEUTROPHILS PERCENT AUTO 59.2 % (42.2-75.2); PLATELET COUNT,PLT 218 10^3/uL (150-450); RED BLOOD CELL COUNT 4.36 10^6/uL (4.6-6.2); WHITE BLOOD CELL COUNT,WBC 5.6 10^3/uL (5.0-10.0)
[2025-01-23 17:22] LABS: A/G RATIO 0.8; ALANINE AMINOTRANSFERASE,ALT 137.0 U/L (16-63); ASPARTATE AMNIOTRANSFERASE,AST 241.0 U/L (15-37); BILIRUBIN TOTAL 0.4 mg/dL (0.2-1.0); BLOOD UREA NITROGEN,BUN 10.0 mg/dL (7-18); CARBON DIOXIDE,CO2 27.0 mmol/L (21-32); CHLORIDE,CL 105.0 mmol/L (98-107); CREATININE 1.01 mg/dL (0.70-1.30); EST CRCL DRUG DOSING (CG) 100.64 mL/min; GLUCOSE RANDOM 141.0 mg/dL (70-99); POTASSIUM,K 4.1 mmol/L (3.5-5.1); PROTEIN TOTAL,TP 8.6 g/dL (6.4-8.2); SODIUM,NA 145.0 mmol/L (136-145)
[2025-01-23 17:31] LABS: ESTIMATED GFR 101.0 mL/min (>=60)
[2025-01-23 17:33] LABS: ETHANOL BLOOD MEDICAL 465.0 mg/dL (0)
[2025-01-23 18:56] VITALS: BP 132/64; PULSE 84
== END 2025-01-23 18:43 | disposition home or self-care (01) ==
LOC: DL.ED 16:39
DX: F10.120 Alcohol abuse with intoxication, uncomplicated (principal); I10 Essential (primary) hypertension; Z79.899 Other long term (current) drug therapy; Y90.9 Presence of alcohol in blood, level not specified
CPT/HCPCS: 36415; 80053; 80307; 85025; 99284; J7030; 99283

== ENCOUNTER 2025-01-25 16:17 | Emergency (ER) | payer MEDICAID ==
[2025-01-25 16:52] LABS: BASOPHILS PERCENT AUTO 1.2 % (0.0-1.0); EOSINOPHILS PERCENT AUTO 0.5 % (1.0-3.0); LYMPHOCYTES PERCENT AUTO 16.5 % (20.5-50.1); MONOCYTES PERCENT AUTO 8.6 % (2-8); NEUTROPHILS PERCENT AUTO 73.2 % (42.2-75.2); PLATELET COUNT,PLT 201 10^3/uL (150-450); RED BLOOD CELL COUNT 4.68 10^6/uL (4.6-6.2); WHITE BLOOD CELL COUNT,WBC 7.7 10^3/uL (5.0-10.0)
[2025-01-25 16:59] LABS: INR 1.0 (0.9-1.2)
[2025-01-25 17:00] LABS: A/G RATIO 0.9; ALANINE AMINOTRANSFERASE,ALT 123.0 U/L (16-63); ASPARTATE AMNIOTRANSFERASE,AST 182.0 U/L (15-37); BILIRUBIN TOTAL 0.5 mg/dL (0.2-1.0); BLOOD UREA NITROGEN,BUN 10.0 mg/dL (7-18); CARBON DIOXIDE,CO2 26.0 mmol/L (21-32); CHLORIDE,CL 103.0 mmol/L (98-107); CREATININE 0.73 mg/dL (0.70-1.30); EST CRCL DRUG DOSING (CG) 134.56 mL/min; GLUCOSE RANDOM 116.0 mg/dL (70-99); POTASSIUM,K 3.7 mmol/L (3.5-5.1); PROTEIN TOTAL,TP 9.5 g/dL (6.4-8.2); SODIUM,NA 140.0 mmol/L (136-145)
[2025-01-25 17:02] LABS: ESTIMATED GFR 123.0 mL/min (>=60); ETHANOL BLOOD MEDICAL 456.0 mg/dL (0)
[2025-01-25 17:07] LABS: LACTIC ACID 1.7 mmol/L (0.4-2.0)
[2025-01-25] MEDS ORDERED: Dextrose 5%-0.9% NaCl with KCl 500 ML IV SCH (17:15)
[2025-01-25] MEDS: Lactated Ringers 1,000 ML IV ONE (17:44)
[2025-01-25 18:03] VITALS: BP 112/75; PULSE 84
== END 2025-01-25 21:18 | disposition home or self-care (01) ==
LOC: DL.ED 16:17
DX: F10.120 Alcohol abuse with intoxication, uncomplicated (principal); I10 Essential (primary) hypertension; Z79.899 Other long term (current) drug therapy; Y90.8 Blood alcohol level of 240 mg/100 ml or more
CPT/HCPCS: 36415; 70450; 71045; 72125; 80053; 80307; 83605; 83735; 85025; 85610; 96360; 99284; J7120

== ENCOUNTER 2025-01-29 02:51 | Emergency (ER) | payer MEDICAID ==
[2025-01-29 03:14] LABS: BASOPHILS PERCENT AUTO 2.4 % (0.0-1.0); EOSINOPHILS PERCENT AUTO 0.5 % (1.0-3.0); LYMPHOCYTES PERCENT AUTO 27.0 % (20.5-50.1); MONOCYTES PERCENT AUTO 12.9 % (2-8); NEUTROPHILS PERCENT AUTO 57.2 % (42.2-75.2); PLATELET COUNT,PLT 143 10^3/uL (150-450); RED BLOOD CELL COUNT 4.38 10^6/uL (4.6-6.2); WHITE BLOOD CELL COUNT,WBC 4.2 10^3/uL (5.0-10.0)
[2025-01-29 03:38] LABS: A/G RATIO 0.8; ALANINE AMINOTRANSFERASE,ALT 173 U/L (16-63); ASPARTATE AMNIOTRANSFERASE,AST 313 U/L (15-37); BILIRUBIN TOTAL 0.5 mg/dL (0.2-1.0); BLOOD UREA NITROGEN,BUN 7 mg/dL (7-18); CARBON DIOXIDE,CO2 27 mmol/L (21-32); CHLORIDE,CL 103 mmol/L (98-107); CREATININE 0.61 mg/dL (0.70-1.30); GLUCOSE RANDOM 130 mg/dL (70-99); POTASSIUM,K 3.6 mmol/L (3.5-5.1); PROTEIN TOTAL,TP 9.0 g/dL (6.4-8.2); SODIUM,NA 145 mmol/L (136-145)
[2025-01-29 03:56] LABS: ESTIMATED GFR 130 mL/min (>=60)
[2025-01-29 03:57] LABS: ETHANOL BLOOD MEDICAL 412 mg/dL (0)
[2025-01-29 05:58] VITALS: BP 114/68; PULSE 69
== END 2025-01-29 05:57 | disposition home or self-care (01) ==
LOC: DL.ED 02:51
DX: F10.129 Alcohol abuse with intoxication, unspecified (principal); I10 Essential (primary) hypertension; R74.01 Elevation of levels of liver transaminase levels; Z79.899 Other long term (current) drug therapy; Y90.9 Presence of alcohol in blood, level not specified
CPT/HCPCS: 36415; 80053; 80307; 83690; 85025; 96365; 99284; J3411; J7030

== ENCOUNTER 2025-02-03 19:55 | Emergency (ER) | payer MEDICAID ==
[2025-02-03 20:23] VITALS: PULSE 86
[2025-02-03 21:21] VITALS: BP 131/78
== END 2025-02-03 21:41 | disposition home or self-care (01) ==
LOC: DL.ED 19:55
DX: F41.9 Anxiety disorder, unspecified (principal); F10.920 Alcohol use, unspecified with intoxication, uncomplicated; I10 Essential (primary) hypertension; Y90.8 Blood alcohol level of 240 mg/100 ml or more
CPT/HCPCS: 36415; 80307; 99284; A9270

== ENCOUNTER 2025-02-03 22:49 | Emergency (ER) | payer MEDICAID ==
[2025-02-03 23:04] VITALS: BP 150/87; PULSE 107
[2025-02-03 23:17] LABS: BASOPHILS PERCENT AUTO 1.1 % (0.0-1.0); EOSINOPHILS PERCENT AUTO 0.2 % (1.0-3.0); LYMPHOCYTES PERCENT AUTO 11.0 % (20.5-50.1); MONOCYTES PERCENT AUTO 11.2 % (2-8); NEUTROPHILS PERCENT AUTO 76.5 % (42.2-75.2); PLATELET COUNT,PLT 123 10^3/uL (150-450); RED BLOOD CELL COUNT 4.54 10^6/uL (4.6-6.2); WHITE BLOOD CELL COUNT,WBC 4.7 10^3/uL (5.0-10.0)
[2025-02-03 23:26] LABS: A/G RATIO 1.0; ALANINE AMINOTRANSFERASE,ALT 148.0 U/L (16-63); ASPARTATE AMNIOTRANSFERASE,AST 233.0 U/L (15-37); BILIRUBIN TOTAL 0.9 mg/dL (0.2-1.0); BLOOD UREA NITROGEN,BUN 7.0 mg/dL (7-18); CARBON DIOXIDE,CO2 26.0 mmol/L (21-32); CHLORIDE,CL 97.0 mmol/L (98-107); CREATININE 0.67 mg/dL (0.70-1.30); EST CRCL DRUG DOSING (CG) 140.19 mL/min; ESTIMATED GFR 126.0 mL/min (>=60); GLUCOSE RANDOM 137.0 mg/dL (70-99); POTASSIUM,K 3.4 mmol/L (3.5-5.1); PROTEIN TOTAL,TP 9.3 g/dL (6.4-8.2); SODIUM,NA 141.0 mmol/L (136-145)
== END 2025-02-03 23:40 | disposition home or self-care (01) ==
LOC: DL.ED 22:49
DX: F10.930 Alcohol use, unspecified with withdrawal, uncomplicated (principal); I10 Essential (primary) hypertension; F17.200 Nicotine dependence, unspecified, uncomplicated; Y90.7 Blood alcohol level of 200-239 mg/100 ml
CPT/HCPCS: 36415; 80053; 83690; 83735; 85025; 99284; A9270

== ENCOUNTER 2025-02-04 03:00 | Emergency (ER) | payer MEDICAID ==
[2025-02-04 03:31] LABS: AMPHETAMINES,URINE NEGATIVE (NEGATIVE); BARBITURATES,URINE NEGATIVE (NEGATIVE); MDMA (ECSTASY), URINE NEGATIVE (NEGATIVE); METHAMPHETAMINES,URINE NEGATIVE (NEGATIVE); OPIATES,URINE NEGATIVE (NEGATIVE); OXYCODONE,URINE NEGATIVE (NEGATIVE); PHENCYCLIDINE,URINE NEGATIVE (NEGATIVE); TCA,URINE NEGATIVE (NEGATIVE)
[2025-02-04 04:10] VITALS: BP 136/90; PULSE 85
== END 2025-02-04 04:33 | disposition home or self-care (01) ==
LOC: DL.ED 03:00
DX: G47.00 Insomnia, unspecified (principal); F10.920 Alcohol use, unspecified with intoxication, uncomplicated; I10 Essential (primary) hypertension; F17.200 Nicotine dependence, unspecified, uncomplicated; Z79.899 Other long term (current) drug therapy; Y90.9 Presence of alcohol in blood, level not specified
CPT/HCPCS: 80305; 99283; A9270; J7030; Q0163

== ENCOUNTER 2025-02-05 00:32 | Emergency (ER) | payer MEDICAID ==
[2025-02-05 00:41] VITALS: BP 132/76; PULSE 92
[2025-02-05] MEDS: Ondansetron 4 MG Tab.DIS PO ONE (00:52)
== END 2025-02-05 01:02 | disposition home or self-care (01) ==
LOC: DL.ED 00:32
DX: F10.230 Alcohol dependence with withdrawal, uncomplicated (principal); F41.9 Anxiety disorder, unspecified; I10 Essential (primary) hypertension; Z79.899 Other long term (current) drug therapy; Y90.9 Presence of alcohol in blood, level not specified
CPT/HCPCS: 99284; A9270

== ENCOUNTER 2025-02-06 08:35 | Inpatient (IN) | payer MEDICAID ==
[2025-02-06] MEDS: PHENobarbitaL sodium 260 MG in Sodium Chloride 0.9% 100 ML IV ONE (09:25)
[2025-02-06] MEDS: Thiamine 100 MG in Sodium Chloride 0.9% 1,000 ML IV ONE (10:02)
[2025-02-06 11:10] LABS: BASOPHILS PERCENT AUTO 0.2 % (0.0-1.0); EOSINOPHILS PERCENT AUTO 0.0 % (1.0-3.0); LYMPHOCYTES PERCENT AUTO 3.5 % (20.5-50.1); MONOCYTES PERCENT AUTO 7.8 % (2-8); NEUTROPHILS PERCENT AUTO 88.5 % (42.2-75.2); PLATELET COUNT,PLT 154 10^3/uL (150-450); RED BLOOD CELL COUNT 4.33 10^6/uL (4.6-6.2); WHITE BLOOD CELL COUNT,WBC 8.7 10^3/uL (5.0-10.0)
[2025-02-06 11:14] LABS: AMPHETAMINES,URINE NEGATIVE (NEGATIVE); BARBITURATES,URINE NEGATIVE (NEGATIVE); MDMA (ECSTASY), URINE NEGATIVE (NEGATIVE); METHAMPHETAMINES,URINE NEGATIVE (NEGATIVE); OPIATES,URINE NEGATIVE (NEGATIVE); OXYCODONE,URINE NEGATIVE (NEGATIVE); PHENCYCLIDINE,URINE NEGATIVE (NEGATIVE); TCA,URINE NEGATIVE (NEGATIVE)
[2025-02-06 11:16] LABS: A/G RATIO 1.0; ALANINE AMINOTRANSFERASE,ALT 203 U/L (16-63); ASPARTATE AMNIOTRANSFERASE,AST 317 U/L (15-37); BILIRUBIN TOTAL 1.6 mg/dL (0.2-1.0); BLOOD UREA NITROGEN,BUN 7 mg/dL (7-18); CARBON DIOXIDE,CO2 27 mmol/L (21-32); CHLORIDE,CL 99 mmol/L (98-107); CREATININE 1.08 mg/dL (0.70-1.30); EST CRCL DRUG DOSING (CG) 93.24 mL/min; GLUCOSE RANDOM 126 mg/dL (70-99); POTASSIUM,K 3.5 mmol/L (3.5-5.1); PROTEIN TOTAL,TP 8.6 g/dL (6.4-8.2); SODIUM,NA 137 mmol/L (136-145)
[2025-02-06 11:17] LABS: ESTIMATED GFR 92 mL/min (>=60); ETHANOL BLOOD MEDICAL < 3 mg/dL (0)
[2025-02-06 11:20] LABS: LACTIC ACID 1.6 mmol/L (0.4-2.0)
[2025-02-06] MEDS ORDERED: Sodium Chloride 0.9% 10 ML Syringe FLUSH PRN (12:11)
[2025-02-06] MEDS ORDERED: Sennosides/Docusate Sodium 50-8.6 MG Tab PO PRN (12:11)
[2025-02-06 12:31] LABS: INR 1.1 (0.9-1.2); PTT,PARTIAL THROMBOPLSTIN TIME 22.8 SEC (22.0-34.0)
[2025-02-06 12:34] LABS: CREATINE KINASE,CK 916.0 U/L (39-308)
[2025-02-06] MEDS ORDERED: Flumazenil 0.1 MG/ML 5 ML MDV IVPUSH PRN (12:55)
[2025-02-06] MEDS: MVI, Adult with Vitamin K 10 ML, Folic Acid 1 MG, Thiamine 100 MG in Lactated Ringers 1... IV ONE (12:59)
[2025-02-06] MEDS: Sodium Chloride 0.9% 10 ML Syringe FLUSH SCH (13:01)
[2025-02-07 06:19] LABS: BASOPHILS PERCENT AUTO 0.7 % (0.0-1.0); EOSINOPHILS PERCENT AUTO 1.4 % (1.0-3.0); LYMPHOCYTES PERCENT AUTO 13.9 % (20.5-50.1); MONOCYTES PERCENT AUTO 12.2 % (2-8); NEUTROPHILS PERCENT AUTO 71.8 % (42.2-75.2); PLATELET COUNT,PLT 166 10^3/uL (150-450); RED BLOOD CELL COUNT 4.26 10^6/uL (4.6-6.2); WHITE BLOOD CELL COUNT,WBC 7.4 10^3/uL (5.0-10.0)
[2025-02-07 06:46] LABS: A/G RATIO 0.9; ALANINE AMINOTRANSFERASE,ALT 193.0 U/L (16-63); ASPARTATE AMNIOTRANSFERASE,AST 241.0 U/L (15-37); BILIRUBIN TOTAL 1.5 mg/dL (0.2-1.0); BLOOD UREA NITROGEN,BUN 4.0 mg/dL (7-18); CARBON DIOXIDE,CO2 27.0 mmol/L (21-32); CHLORIDE,CL 103.0 mmol/L (98-107); CREATINE KINASE,CK 706.0 U/L (39-308); CREATININE 0.82 mg/dL (0.70-1.30); EST CRCL DRUG DOSING (CG) 122.8 mL/min; GLUCOSE RANDOM 83.0 mg/dL (70-99); POTASSIUM,K 3.8 mmol/L (3.5-5.1); PROTEIN TOTAL,TP 7.6 g/dL (6.4-8.2); SODIUM,NA 141.0 mmol/L (136-145)
[2025-02-07 06:51] LABS: ESTIMATED GFR 118.0 mL/min (>=60)
[2025-02-07] MEDS: Ondansetron 4 MG/2 ML SDV IVPUSH PRN (14:24)
[2025-02-08 06:57] LABS: BASOPHILS PERCENT AUTO 0.9 % (0.0-1.0); EOSINOPHILS PERCENT AUTO 1.2 % (1.0-3.0); LYMPHOCYTES PERCENT AUTO 14.7 % (20.5-50.1); MONOCYTES PERCENT AUTO 13.7 % (2-8); NEUTROPHILS PERCENT AUTO 69.5 % (42.2-75.2); PLATELET COUNT,PLT 190 10^3/uL (150-450); RED BLOOD CELL COUNT 4.07 10^6/uL (4.6-6.2); WHITE BLOOD CELL COUNT,WBC 6.9 10^3/uL (5.0-10.0)
[2025-02-08 07:17] LABS: A/G RATIO 0.9; ALANINE AMINOTRANSFERASE,ALT 160.0 U/L (16-63); ASPARTATE AMNIOTRANSFERASE,AST 125.0 U/L (15-37); BILIRUBIN TOTAL 0.9 mg/dL (0.2-1.0); BLOOD UREA NITROGEN,BUN 2.0 mg/dL (7-18); CARBON DIOXIDE,CO2 28.0 mmol/L (21-32); CHLORIDE,CL 105.0 mmol/L (98-107); CREATINE KINASE,CK 379.0 U/L (39-308); CREATININE 0.84 mg/dL (0.70-1.30); EST CRCL DRUG DOSING (CG) 119.88 mL/min; GLUCOSE RANDOM 106.0 mg/dL (70-99); POTASSIUM,K 3.9 mmol/L (3.5-5.1); PROTEIN TOTAL,TP 7.4 g/dL (6.4-8.2); SODIUM,NA 145.0 mmol/L (136-145)
[2025-02-08 07:20] LABS: ESTIMATED GFR 117.0 mL/min (>=60)
[2025-02-08 11:17] VITALS: BP 120/74; PULSE 55
== END 2025-02-08 11:10 | disposition home or self-care (01) | DRG 897 ==
LOC: DL.ED 08:35 → DL.MS 12:01
PROVIDERS: ADMIT Student in an Organized Health Care Education/Training Program; ATTEND Student in an Organized Health Care Education/Training Program
PROC: HZ2ZZZZ Detoxification Services for Substance Abuse Treatment (ICD-10-PCS; principal; 2025-02-06)
DX: F10.239 Alcohol dependence with withdrawal, unspecified (principal); R56.9 Unspecified convulsions; F43.12 Post-traumatic stress disorder, chronic; F41.9 Anxiety disorder, unspecified; H54.7 Unspecified visual loss; I10 Essential (primary) hypertension; E86.0 Dehydration; F17.200 Nicotine dependence, unspecified, uncomplicated; Z79.899 Other long term (current) drug therapy
CPT/HCPCS: 36415; 70450; 80053; 80305-QW; 80307; 82248; 82550; 83605; 83735; 85025; 85610; 85730; 96365; 96367; 99222; 99232; 99238; 99284; 99285-25; A9270-GY; J1650; J1808; J2405; J2470; J2560; J3411; J3490; J7030; J7042; J7120